=== PATIENT | male | born 1970 | race Caucasian/White ===

== ENCOUNTER → 2023-11-16 11:25 | Outpatient (CLI) | payer OTHER, MEDICAID, SELFPAY ==
--- NOTE | 2023-11-16 11:27 | DI.RAD.S_ITS ---
PROCEDURE: XR HIP W PEL IF DONE RT 2V INDICATIONS: Right hip pain TECHNIQUE: 2 views of the hip were acquired. COMPARISON: None. FINDINGS: Bones: No fractures or dislocations. No suspicious bony lesions. The visualized pelvic ring appears intact. Moderate bilateral hip joint degeneration. Soft tissues: No suspicious soft tissue calcifications or masses. IMPRESSION: No acute bony abnormality. Moderate bilateral hip joint degeneration. If symptoms persist with conservative management, consider cross-sectional imaging such as CT or MRI. Approved by: Iesha Herron M.D. on 11/17/2023 at 0:17
== END ==
PROVIDERS: Referring Provider Nurse Practitioner Family; Visit Provider Nurse Practitioner Family
DX: M25.551 Pain in right hip (principal); M16.0 Bilateral primary osteoarthritis of hip
CPT/HCPCS: 73502

== ENCOUNTER → 2024-01-06 06:13 | Outpatient (CLI) | payer OTHER, MEDICAID, SELFPAY ==
[2024-01-06 07:56] LABS: Add Manual Diff / Slide Review NO; Basophils Absolute Auto 0 /uL (0-100); Basophils Percent Auto 0.9 % (0-2); Eosinophils Absolute Auto 200 /uL (0-450); Eosinophils Percent Auto 5.3 % (2-4); Hematocrit 43.4 % (41-53); Hemoglobin 15.1 g/dL (13.5-17.5); Lymphocytes Absolute Auto 1900 /uL (1100-4500); Mean Corpuscular HGB Conc 34.8 % (30-36); Mean Corpuscular Hemoglobin 31.2 PG (26-34); Mean Corpuscular Volume 89.8 fL (80-100); Monocytes Absolute Auto 400 /uL (0-900); Monocytes Percent Auto 8.2 % (3-14); Neutrophils Absolute Auto 1900 /uL (1500-7000); Neutrophils Percent Auto 42.6 % (50-75); Platelet Count 235 X10^3/uL (150-400); Red Blood Cell Count 4.83 X10^6/uL (4.5-5.9); Red Cell Distribution Width 12.4 % (11.6-14.8); White Blood Cell Count 4.5 X10^3/uL (4.5-11.0)
[2024-01-06 08:16] LABS: Alanine Aminotransferase 22 IU/L (<50); Albumin 4.8 g/dL (3.5-5.0); Alkaline Phosphatase 49 U/L (38-126); Aspartate Aminotransferase 27 IU/L (17-59); BUN Creatinine Ratio 17.6 (6-22); Bilirubin Total 1.1 mg/dL (0.2-1.3); Blood Urea Nitrogen 16 mg/dL (9-20); Calcium 9.7 mg/dL (8.4-10.2); Carbon Dioxide 30 mmol/L (22-32); Chloride 106 mmol/L (98-107); Cholesterol 200 mg/dL (140-199); Estimated Glomerular Filt Rate > 60 mL/min (>60); Globulin 2.4 g/dL (1.7-4.1); Glucose 97 mg/dL (70-100); HDL Cholesterol 79 mg/dL (40-60); HEMOLYSIS < 15 (0-50); LDL Cholesterol Calculated 104 mg/dL (<100); Potassium 4.9 mmol/L (3.4-5.1); Sodium 141 mmol/L (137-145); Total Protein 7.2 g/dL (6.3-8.2); Triglycerides 84 mg/dL (35-150)
[2024-01-06 10:43] LABS: HIV 1 & 2 Ab/Ag 4th Gen Combo NEGATIVE (NEGATIVE); Hep C Virus Ab w/Reflex Quant NEGATIVE s/c (NEGATIVE)
== END ==
LOC: LAB 06:14
PROVIDERS: PCP Family Medicine; Referring Provider Family Medicine; Visit Provider Family Medicine
DX: Z13.220 Encounter for screening for lipoid disorders (principal); Z11.59 Encounter for screening for other viral diseases; Z11.4 Encounter for screening for human immunodeficiency virus [HIV]; E87.8 Other disorders of electrolyte and fluid balance, not elsewhere classified; I48.91 Unspecified atrial fibrillation; D64.9 Anemia, unspecified; E78.5 Hyperlipidemia, unspecified; Z79.01 Long term (current) use of anticoagulants
CPT/HCPCS: 36415; 80053; 80061; 85025; 86803; 87389

== ENCOUNTER → 2024-01-21 11:48 | Outpatient (CLI) | payer OTHER, MEDICAID, SELFPAY ==
--- NOTE | 2024-01-21 11:49 | DI.MRI.S_ITS ---
PROCEDURE: MR HIP RT WO CON INDICATIONS: Pain in right hip TECHNIQUE: Noncontrast coronal T1 spin echo and STIR through the bony pelvis. Coronal and axial T2 fast spin echo with fat saturation, sagittal T1 spin echo, and oblique axial T2 fast spin echo with fat saturation through the hip. COMPARISON: [facility], CR, XR HIP W PEL IF DONE RT 2V, 11/16/2023, 11:27. FINDINGS: Image quality: Excellent. Bones and joints: Asymmetric moderate right hip joint osteoarthritic changes are seen with near complete loss of joint space, extensive subchondral sclerosis and subcortical edema. Marginal osteophyte formation is also noted. No acute fracture or dislocation. No definite avascular necrosis of femoral head. No suspicious bony lesions. The visualized lower lumbar spine is normally aligned. Tendons and ligaments: Distal right gluteus medius and minimus tendinosis is seen. Tendinosis also noted involving right hamstring tendon origins at ischial tuberosity. The nearby proximal iliotibial band also appears intact. The iliopsoas tendon appears intact, without adjacent bursal fluid collections or evidence for impingement syndrome. Labrum and cartilage: Global signal abnormality throughout right hip labrum is seen suggestive of extensive right hip labral tear. Diffuse loss of articulating cartilage over right femoral head is also noted. Soft tissues: Visualized muscles demonstrate normal bulk and internal signal. Quadratus femoris muscle demonstrates no internal edema to suggest ischiofemoral impingement. The proximal sciatic neurovascular bundle appears normal adjacent to the hamstring tendons. No free pelvic fluid. Bladder wall thickness is normal. Genitourinary structures and bowel loops appear normal where visualized. IMPRESSION: 1. Asymmetric moderate right hip joint osteoarthritis. No acute pelvic or hip fracture. No definite evidence of avascular necrosis. 2. Distal right gluteus medius and minimus tendinosis. Tendinosis involving right hamstring tendon origins. 3. Suggestion of extensive right hip labral tear with global signal abnormality throughout superior right hip labrum. Dictated by: Barry Resendez M.D. on 01/21/2024 at 15:32 Approved by: Barry Resendez M.D. on 01/21/2024 at 15:35
== END ==
PROVIDERS: PCP Family Medicine; Referring Provider Orthopaedic Surgery; Visit Provider Orthopaedic Surgery
DX: M25.551 Pain in right hip (principal); M16.11 Unilateral primary osteoarthritis, right hip
CPT/HCPCS: 73721

== ENCOUNTER → 2024-01-27 14:21 | Outpatient (CLI) | payer OTHER, MEDICAID, SELFPAY ==
[2024-01-27 16:57] LABS: Add Manual Diff / Slide Review NO; Basophils Absolute Auto 0 /uL (0-100); Basophils Percent Auto 0.9 % (0-2); Eosinophils Absolute Auto 200 /uL (0-450); Eosinophils Percent Auto 3.6 % (2-4); Hematocrit 41.6 % (41-53); Hemoglobin 14.4 g/dL (13.5-17.5); Lymphocytes Absolute Auto 2000 /uL (1100-4500); Lymphocytes Percent Auto 39.3 % (25-40); Mean Corpuscular HGB Conc 34.6 % (30-36); Mean Corpuscular Hemoglobin 31.6 PG (26-34); Mean Corpuscular Volume 91.2 fL (80-100); Monocytes Absolute Auto 300 /uL (0-900); Monocytes Percent Auto 5.9 % (3-14); Neutrophils Absolute Auto 2600 /uL (1500-7000); Neutrophils Percent Auto 50.3 % (50-75); Platelet Count 223 X10^3/uL (150-400); Red Blood Cell Count 4.57 X10^6/uL (4.5-5.9); Red Cell Distribution Width 12.7 % (11.6-14.8); White Blood Cell Count 5.1 X10^3/uL (4.5-11.0)
[2024-01-27 17:18] LABS: INR 1.3 (0.9-1.3); Prothrombin Time 14.7 SECONDS (9.4-12.5)
[2024-01-27 17:27] LABS: BUN Creatinine Ratio 18.7 (6-22); Blood Urea Nitrogen 17 mg/dL (9-20); Calcium 9.2 mg/dL (8.4-10.2); Carbon Dioxide 26 mmol/L (22-32); Chloride 106 mmol/L (98-107); Estimated Glomerular Filt Rate > 60 mL/min (>60); Glucose 95 mg/dL (70-100); HEMOLYSIS < 15 (0-50); Potassium 4.1 mmol/L (3.4-5.1); Sodium 137 mmol/L (137-145)
== END ==
PROVIDERS: PCP Family Medicine; Referring Provider Orthopaedic Surgery; Visit Provider Orthopaedic Surgery
DX: Z01.818 Encounter for other preprocedural examination (principal); Z51.81 Encounter for therapeutic drug level monitoring
CPT/HCPCS: 80048; 85025; 85610; 93005

== ENCOUNTER 2024-03-09 06:08 | Day surgery (SDC) | payer OTHER, MEDICAID, SELFPAY ==
[2024-03-01 13:52] VITALS: BMI 25.5
[2024-03-09] VITALS (10 sets, daily range): BP systolic 90–131; BP diastolic 52–88; PULSE 59–104; RESP 12–21; TEMP 36.1–36.6; O2SAT 94–99; BMI 25.2
--- NOTE | 2024-03-09 | DI.RAD.S_ITS ---
PROCEDURE: XR HIP W PEL IF DONE RT 4V INDICATIONS: INTRA OP RIGHT HIP TECHNIQUE: 2 view(s) of the hip [facility]. [facility], 10:41. [facility], [facility], XR HIP W PEL IF DONE RT 2V, 11/16/2023, 11:27. FINDINGS: Intraoperative images demonstrate right hip arthroplasty. Hardware is intact with good anatomic alignment. IMPRESSION: Intraoperative right hip arthroplasty. Dictated by: April Montenegro M.D. on 03/09/2024 at 16:00 Approved by: April Montenegro M.D. on 03/09/2024 at 16:00
--- NOTE | 2024-03-09 06:00 | DI.RAD.S_ITS ---
PROCEDURE: XR HIP W PEL IF DONE RT 2V INDICATIONS: anterior total right hip TECHNIQUE: 2 view(s) of the hip acquired. COMPARISON: [facility], [facility], XR HIP W PEL IF DONE RT 2V, 11/16/2023, 11:27. FINDINGS: Bones: Patient is status post right hip arthroplasty, with hardware components in expected positions. The hip joint appears congruent. The visualized bony structures appear intact. Soft tissues: Overlying postoperative changes are noted. No suspicious soft tissue densities. IMPRESSION: Expected post-operative appearance of a hip arthroplasty. Dictated by: Sunita Rios MD, PhD on 03/09/2024 at 10:58 Approved by: Sunita Rios MD, PhD on 03/09/2024 at 10:59
[2024-03-09] MEDS: LACTATED RINGERS 1,000 ML 42 ML IV (06:40)
[2024-03-09] MEDS: VANCOMYCIN 1,000 MG/200 ML PIGGYBACK 200 MG IV (06:48)
[2024-03-09] MEDS: CELECOXIB 200 MG CAPSULE PO (06:49)
[2024-03-09] MEDS: ACETAMINOPHEN 325 MG TABLET 975 MG PO (06:49)
--- NOTE | 2024-03-09 07:42 | PM.PREOP ---
Pre-operative Note Interval Note History & Physical reviewed/Exam performed by Physician: Yes Changes to H&P: No
[2024-03-09] MEDS: TRANEXAMIC ACID 1,000 MG VIAL 1000 MG INJ (08:00)
[2024-03-09] MEDS: CEFAZOLIN 2 GM/100 ML PREMIX 100 ML IV (08:02)
[2024-03-09] MEDS: ACETAMINOPHEN IV 1,000 MG/100 ML VIAL 400 MG IV (08:15)
--- NOTE | 2024-03-09 08:25 | SUR.OPER ---
Patient supine on padded Tuthill table, one arm on padded arm board at <90, other arm padded and secured with tape across patient's chest, both legs secured in padded traction boots and positioned per surgeon, padded post at patient's groin, pressure points checked and padded.
[2024-03-09] MEDS: BUPIVACAINE 0.25% (PF) 60 ML, EPINEPHrine 0.3 MG INJ (08:31)
[2024-03-09] MEDS: BUPIVACAINE LIPOSOME 266 MG/20 ML VIAL INJ (08:32)
--- NOTE | 2024-03-09 10:43 | P.OP_ITS ---
Operative Date/Time/Diagnoses Date of procedure: 03/09/24 Time of procedure: 08:00 Pre-op diagnosis: right hip AVN Post-op diagnosis: same Procedure & Clinicians Procedure: right total hip anterior approach Same procedure as scheduled: Yes Indications: The patient has had progressively worsening right hip pain with radiographic changes consistent with arthritis. Non-operative management has failed and the patient has requested total hip replacement. The risks, benefits and alternatives to surgery were discussed with the patient prior to proceeding. Risks discussed included, but were not limited to, failure to relieve pain, leg length discrepancy, dislocation, stiffness, infection, nerve damage, deep venous thrombosis, pulmonary embolism, stroke, coma, heart attack, permanent paralysis and , as well as the potential need for eventual revision of the prosthetic. Surgeon: Marie Siegel [employer] Technician: Jorge Alberto Yoo Anesthesia Type: General and Spinal Operative Notes Findings: Good quality bone, ATN right femoral head, adequate stability Closure Type: primary Specimen(s): none sent Prosthetic devices, grafts, tissues, transplants, or devices: [employer] R3 56 cup, neutral poly liner, one 6.5 mm screw, size 3 standard polar stem, 36 by +0 Oxinium Estimated Blood Loss (mL): 250 Blood products transfused: none Procedure in detail: The patient was brought to the operating room. Patient was carefully positioned in the supine position. Time-out was performed and antibiotics were given. Anesthesia was induced. He was positioned in the on the table in order to allow hyperextension of the hip. The right lower extremity was prepped and draped in a standard sterile fashion. An anterior right hip incision was made 1 fingerbreadth lateral to the anterior superior iliac spine and extended distally towards the greater trochanter. Dissection was carried out through skin and subcutaneous tissues. Superficial hemostasis was achieved. The fascia over the tensor fascia bety was defined and incised with a knife. Two Allis clamps were used to grasp the fascia. Tensor fascia bety was retracted laterally. A gelpi retractor was placed. Dissection was carried out down along the neck. The circumflex vessels were carefully identified and cauterized with the Aqua Mantis. A PA was used during the procedure and was essential for intraoperative retraction and safe implantation of the components. There was good visualization of the femoral neck. A Cobra was placed superior to the neck and the gluteus fibers were carefully stripped from that superior aspect of the capsule. A 2nd retractor was placed along the inferior aspect of the neck. The rectus insertion along the capsule was partially released. A 3rd retractor that was then gently placed over the rim of the acetabulum under the rectus. Capsule was carefully incised and released from the intertrochanteric line circumferentially superior to the mid sagittal line and inferiorly to the mid sagittal line until the lesser trochanter was palpable. A tag stitch was placed both in the superior and inferior limb of the capsular insertion. Along the acetabulum capsule was also released up to the mid sagittal 12:00 position. A portion of the labrum was resected. A saw was used to perform an osteotomy at the level of the intertrochanteric line and the junction of the superior femoral neck leaving approximately 1 finger breath of residual inferior neck above the lesser trochanter. A 2nd cut was made along the femoral neck at the base of the head and a napkin ring of neck was removed. Corkscrew was placed in the femoral head and the head was removed without difficulty. Retractors were then repositioned around the acetabulum. Residual labrum was resected and additional osteophytes were removed. A reamer that was 4 mm below the templated size was placed by hand in the acetabulum and it was reamed to centralize the acetabulum. It was then reamed up to 2 under the templated size and fluoroscopy was brought in to confirm the position of the reaming and depth of reaming. I reamed 1 under the anticipated size and touched the rim with line to line reaming. A trial cup was placed and noted that it was appropriately sized and fluoroscopy confirmed position and depth. The component was open and inserted without difficulty fluoroscopic imaging was used to confirm that the cup had been adequately seated and was well positioned. It was further stabilized with a single screw. Neutral poly liner was placed. The cup was tested and noted to be stable. Attention was then directed to the femur. The femur was gently hyperextended additional capsular release was performed as needed in order to allow adequate visualization of the proximal femur with elevation of the femur. Patient was placed in a hyperextended slightly adducted position with maximum external rotation. Box osteotome was used to check for any residual neck as well as sclerotic bone along the trochanter. [place] Spur pepper was placed in the femur. Additional broaching was performed. Canal finder was used to determine the alignment of the canal and position. Size 1 broach was placed. The canal was then appropriately broached up to the templated size as long as there was adequate stability of the broach and serial advancement of the broach without excessive impingement. Specific attention was directed at avoiding varus attempting to direct the distal aspect of the broach more anteriorly and avoiding excessive anteversion. Trial reduction showed acceptable range of motion, good stability, no posterior impingement, jainism of leg length and appropriate lateral shuck. I also hyperflexed the hip and checked that there was no impingement anteriorly and there was good stability with flexion, adduction and internal rotation. Marcaine and Exparel were injected.. The stem was placed without difficulty. Repeat trial reduction and x-ray showed acceptable overall position, length, and no evidence of the femoral fracture. Final head was placed. Wound was meticulously irrigated with normal saline. The hip was reduced and additional Exparel and Marcaine were injected. The capsule was closed with interrupted nonabsorbable sutures. The fascia of the tensor was closed with interrupted and running Vicryl. No drain was placed. Any tensor fascia bety muscle that appeared to be contused or injured which was a minimal amount was carefully resected. Capsule around the tensor was injected with Exparel and Marcaine. The skin was closed with barbed stitches for the subcutaneous tissue and skin. We also used surgical glue. The wound was dressed sterilely. Brief Betadine soak was also used and was meticulously irrigated with normal saline. Patient was transferred to recovery room in satisfactory condition. Complications: none Post-operative Condition: stable Disposition: observation Plan for aftercare: The patient will be maintained on a standard total hip replacement protocol with weight bearing as tolerated and anterior hip precautions. The patient will receive Xarelto and sequential compression devices for DVT prophylaxis. The patient will be discharged home when safe for the home environment.
[2024-03-09] MEDS: OXYCODONE IR 5 MG TABLET PO ×2 (10:52→11:16)
--- NOTE | 2024-03-09 12:30 | PC.NURSE ---
Pt to room 203 via bed from PACU at 1125. Pt is awake, alert, and oriented. Denies pain, nausea, or shortness of breath. Spouse Lori is at the bedside. IV infusing as ordered. SCD's on and running. Bed alarm on for safety. Pt oriented to room, call light, bed controls, and tv controls. Requested Pt to not get out of bed without assistance. Pt agrees to call for all needs.
--- NOTE | 2024-03-09 14:35 | PT.IIE ---
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) Surgery Performed Operation Date: 03/09/24 07:45 Actual Procedures p Total Hip Arthroplasty/Anterior Approach(Right) - Marie Siegel MD Surgical History (Last Updated 11/25/23 @ 17:47 by Olga Izquierdo) Anesthesia History of cardiac radiofrequency ablation (~2021) History of hand surgery History of hernia repair Medical History (Last Updated 03/01/24 @ 14:07 by Kelley Valle RN) History of cardioversion Physical Therapy Inpatient Evaluation/Re-Eval M1 PT/OT-IP Prior Functional Status Start: 03/09/24 16:25 Freq: NEEDED Status: Active Protocol: Document 03/09/24 14:35 AB (Rec: 03/09/24 16:39 AB [id number]) Medical Review Prior Functional Status Medical History Reviewed Yes Communication able to make needs known Mobility and Gait pt stated that he was independent with all mobilities and ambulation without AD Social History Household Members spouse,children Living Arrangements House Number of Floors (Floors) Two Floors Number of Stairs To Enter/Railing? 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 PT-IP Current Condition Start: 03/09/24 16:25 Freq: NEEDED Status: Active Protocol: Document 03/09/24 14:35 AB (Rec: 03/09/24 16:39 AB [id number]) Physical Therapy Current Condition Current Condition Evaluation Date 03/09/24 Treatment Diagnosis s/p R BINU anterior; difficulty in walking Onset Date 03/09/24 M3 PT-IP Subjective Start: 03/09/24 16:25 Freq: NEEDED Status: Active Protocol: Document 03/09/24 14:35 AB (Rec: 03/09/24 16:39 AB [id number]) Subjective Physical Therapy Visit Type Type Initial Evaluation Visit Start Time 14:35 Visit Stop Time 15:50 Number of PHARMACY TECHNICIAN PER DIEM Visits 0 Physical Therapy Visit Comments Patient Comments agreeable to do PT Therapy Pain Assessment Pain Present Pain Present Denied Pain M4 PT-IP Mobility and Gait Start: 03/09/24 16:25 Freq: NEEDED Status: Active Protocol: Document 03/09/24 14:35 AB (Rec: 03/09/24 16:39 AB [id number]) PT-Bed Mobility Assessment Supine to Sit Supine to Sit Standby Assistance Sit to Supine Sit to Supine Standby Assistance PT-Transfer Assessment Sit to and From Stand Sit to and from Stand Contact Guard Assistance,1 Person Assistance,Use of Upper Extremities Equipment Transfer Assistive Device Gait Belt,Front Wheeled Walker Orthotic/Prosthetic Devices or Brace: No Transfers Transfer Destination Bed,Chair Transfer Technique Stand Step Pivot Transfer Ability Level of Assist Contact Guard Assistance,1 Person Assistance,Use of Upper Extremities Comments Mobility Comments pt supine in bed. spouse in room. obtained PLOF and home set up from pt and spouse. post-op folder provided and reviewed contents. educated pt regarding R hip anterior precautions. pt was able to recall after education. BP in supine: 134/68 pt completed supine to sit SBA . able to sit on EOB SBA. c/o feeling oozy. BP checked: 113/74. pt sat for a few minutes. BP checked: 121/74. completed sit to stand CGA to min A. pt ambulated in room ~ 20 ft using FWW CGA and sat on the chair. BP checked: 124/ 71. caregiver training conducted. educated spouse on how to use safety belt and how to assist pt. spouse was able to put safety belt on. assisted pt with sit to stand and ambulated pt using FWW towards platform step. pt completed up/down step CGA to min A with PT initially assisting pt. pt repeated and with spouse assisting and cueing pt. pt ambulated in the hallway ~ 40 ft and went back to the room using fWW CGA. pt sat back on the chair. educated pt on how to do bed mobility. pt completed sit to stand from the chair and step transfer to bed with spouse assisting using FWW CGA. pt completed sit to supine SBA and cues. pt stated that he is tired and wants to stay in bed for now. left pt with OT. pt and spouse without further concerns. Gait Assessment Gait Gait Assistance Required: Contact Guard Assist Distance (Feet) 40 Able to Maintain Weight Bearing Status Yes During Gait Assistive Devices Assistive Device Gait Belt,Front Wheeled Walker Orthotic/Prosthetic Devices or Brace: No Factors Limiting Gait Function Factors Limiting Gait Function Decreased Activity Tolerance, Decreased Strength,Limited Range of Motion,Pain,Poor Balance,Poor Safety Awareness Stair Climbing Assessment Evaluation Level of Assist On Stairs Contact Guard Assistance, Minimal Assistance Devices Stair Climbing Assistive Devices Front Wheel Walker Technique/Endurance Stair Climbing Direction Ascend and Descend Stair Climbing Technique Step to Step Number of Steps Climbed 1 Query Text: Stair Climbing Set # Repetitions (reps) 2 PT-Balance Assessment Sitting Balance and Reactions Static Sitting Balance Ability Normal Dynamic Sitting Balance Ability Good Standing Balance and Reactions Static Standing Balance Ability Good Dynamic Standing Balance Ability Fair Device Used FWW M5 PT-IP Objective Assessments Start: 03/09/24 16:25 Freq: NEEDED Status: Active Protocol: Document 03/09/24 14:35 AB (Rec: 03/09/24 16:39 AB [id number]) Orientation Orientation/Cognition Level of Alertness Alert Orientation Name,Situation Language Function Ability No Deficits Noted Safety Awareness Decreased Safety Awareness Memory Description No Deficits Noted Gross Range of Motion Lower Extremity ROM Assessment Within Functional Limits Strength Lower Extremity Strength Assessment Right Impaired Hip 3+/5 Knee 4-/5 Muscle Tone Muscle Tone WNL Yes M6 PT-IP Treatment Start: 03/09/24 16:25 Freq: NEEDED Status: Active Protocol: Document 03/09/24 14:35 AB (Rec: 03/09/24 16:39 AB [id number]) Physical Therapy Treatment Exercises Exercises Heel Slides Education Education Provided Precautions,Weight Bearing Status,Post-Op Packet,Safety M7 PT-IP Assessment and Plan Start: 03/09/24 16:25 Freq: NEEDED Status: Active Protocol: Document 03/09/24 14:35 AB (Rec: 03/09/24 16:39 AB [id number]) PT Summary Assessment and Plan Potential Rehabilitation Potential Fair Status of Condition at Evaluation Stable Summary Impairments Pain,ROM,Strength,Balance, Coordination,Sensation,Tone, Cognition,Bed Mobility, Transfers,Gait,Activity Tolerance Assessment Summary pt is a 53 y/o M s/p R BINU anterior approach POD 0. pt has R hip anterior precautions and is WBAT on RLE. pt requiring CGA with mobility using FWW and plans to go home with spouse to assist him. caregiver training conducted and spouse was able to safely assist pt. pt may go home when medically stable. pt also stated that he has outpt PT set up. Goals Bed Mobility Goal Independent Transfer Goal Independent,Front Wheeled Walker Gait Goal Independent,Front Wheel Walker Gait Distance 200 Other Goals up/down 2 platform steps mod I Days to Meet Goals 5 Frequency of Treatment Frequency Of Treatment Twice a Day Treatment Plan Physical Therapy Treatment Plan Bed Mobility Training,Transfer Training,Gait Training, Therapeutic Exercise,Balance Retraining,Post Op Education, Discharge Planning,Hot or Cold Pack,Neuromuscular Re-ed, Coordination Retraining,Manual Therapy Precautions Anterior Hip Precautions No Hip Extension,No Hip External Rotation Weight Bearing Status Weight Bearing Status Weight Bear as Tolerated Allowed Weight Bearing Amount (enter % RLE WBAT or #) (%) Recommendations To Nursing Amount of Assist Needed 1 Person Assist Discharge Recommendations PT Discharge Recommendations Home with Assistance, Outpatient PT Transportation Needs at Discharge Private Vehicle
--- NOTE | 2024-03-09 16:10 | OT.IP.EVAL ---
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) Surgery Performed Operation Date: 03/09/24 07:45 Actual Procedures p Total Hip Arthroplasty/Anterior Approach(Right) - Marie Siegel MD Past Medical History (Last Updated 03/01/24 @ 14:07 by Kelley Valle RN) History of cardioversion Surgical History (Last Updated 11/25/23 @ 17:47 by Olga Izquierdo) Anesthesia History of cardiac radiofrequency ablation (~2021) History of hand surgery History of hernia repair Occupational Therapy Inpatient Evaluation/Re-Eval M2 OT-IP Current Condition Start: 03/09/24 16:09 Freq: Status: Active Protocol: Document 03/09/24 16:10 [facility] (Rec: 03/09/24 16:31 [facility] [id number]) Occupational Therapy Current Condition Current Condition Evaluation Date 03/09/24 Treatment Diagnosis S/P R BINU anterior approach Diagnosis Onset Date 03/09/24 Post Operative Precautions Anterior Hip Precautions No Hip Extension,No Hip External Rotation Weight Bearing Status Weight Bearing Status Weight Bear as Tolerated M3 OT- IP Subjective and Pain Start: 03/09/24 16:09 Freq: Status: Active Protocol: Document 03/09/24 16:10 [facility] (Rec: 03/09/24 16:31 [facility] [id number]) OT- Subjective Occupational Therapy Visit Type Type Initial Evaluation Visit Start Time 14:50 Visit Stop Time 16:00 Occupational Therapy Visit Comments Patient Comments Pt agreed to get up. Pt's in the room for caregiver training. Patient/Caregiver Goals To go home. OT Pain Assessment Pain When Pain Assessed During Mobility Pain Present Pain Present Pain Reported M4 OT- IP ADL's Start: 03/09/24 16:09 Freq: Status: Active Protocol: Document 03/09/24 16:10 [facility] (Rec: 03/09/24 16:31 [facility] [id number]) OT ADL-Dressing General Eval Upper Body Dressing Ability Independent Lower Body Dressing Ability Moderate Assistance,Maximum Assistance Areas Needing Assistance Socks,Shoes Comments OT Dressing Comments Pt able to radha/doff his brief and shorts. Pt needing assist for socks and able to show pt use of grain operator and sock aid. Pt's states to assist him at home. Pt educated not to cross his right LE for dressing needs. OT ADL-Toileting Comments OT Toileting Comments Pt able to practice and reach better while standing to wipe. Pt is considering getting a bidet. educated pt to be mindful of his right hip positioning during ADL needs. OT ADL-Bathing Comments OT Bathing Comments Suggested pt get a shower chair for home to use. Spoke on covering the dressing during showering needs. M5 OT- IP IADL's Start: 03/09/24 16:09 Freq: Status: Active Protocol: Document 03/09/24 16:10 [facility] (Rec: 03/09/24 16:31 [facility] [id number]) OT-Instrumental Activities of Daily Living Deficits IADL Deficits Identified Deficits Home Safety Awareness Awareness of Need for Assistance at Home Good Awareness Ability to Problem Solve Emergency Able to Problem Solve Situations Home Safety Comments Pt's to be home to assist pt for all needs. Meal Preparation Meal Preparation Caregiver Provides Assist Casino Duty Manager Casino Duty Manager Caregiver Provides Assist M6 OT- IP Functional Cognition Start: 03/09/24 16:09 Freq: Status: Active Protocol: Document 03/09/24 16:10 [facility] (Rec: 03/09/24 16:31 [facility] [id number]) Cognitive Factors Limiting Selfcare Function Cognitive Ability Level of Alertness Alert Patient Orientation Name,Age,Birthday,Month,Date, Year,Day of Week,Place, Situation Attention Span Ability Capable of Focused Attention, Capable of Sustained Attention Ability to Follow Commands Able to Follow One Step Commands Memory Description No Deficits Noted Safety Awareness No Deficits Noted Problem Solving Ability No deficits Noted Cognitive Comments Cognitive Assessment Comments Pt tired from surgery but able to recall and incorporate his anterior precautions after initial education. OT- Vision and Hearing OT- Hearing Assessment OT- Hearing Assessment WFL OT- Vision Assessment Visual Attentiveness WFL Occular Pursuits WFL M7 OT- IP Mobility and Balance Start: 03/09/24 16:09 Freq: Status: Active Protocol: Document 03/09/24 16:10 [facility] (Rec: 03/09/24 16:31 [facility] [id number]) OT- Bed Mobility Assessment Supine to Sit Supine to Sit Assist Standby Assistance Sit to Supine Sit to Supine Assist Standby Assistance Scooting Scooting to Edge of Bed Standby Assistance OT-Transfer Assessment Sit to and From Stand Sit to and from Stand Standby Assistance,Contact Guard Assistance Transfers Transfer Ability Standby Assistance,Contact Guard Assistance Technique Transfer Destination Bed,Chair Transfer Technique Stand Step Pivot Devices Transfer Assistive Devices Gait Belt,Front Wheeled Walker Comments Mobility Comments Pt moving well and able to follow all his hip precautions for mobility needs. Able to go over all mobility needs with bed mobility, transfers including car transfers, and ADL's. OT- Balance Assessment Sitting Balance and Reactions Static Sitting Balance Ability Normal Dynamic Sitting Balance Ability Normal Standing Balance and Reactions Static Standing Balance Ability Good Dynamic Standing Balance Ability Fair M8 OT- IP Objective Assessments Start: 03/09/24 16:09 Freq: Status: Active Protocol: Document 03/09/24 16:10 [facility] (Rec: 03/09/24 16:31 [facility] [id number]) OT Gross Range of Motion Upper Extremity Range of Motion Assessment Within Functional Limits OT Strength Upper Extremity Strength Assessment Within Functional Limits M9 OT- IP Assessment and Plan Start: 03/09/24 16:09 Freq: Status: Active Protocol: Document 03/09/24 16:10 [facility] (Rec: 03/09/24 16:31 [facility] [id number]) OT Summary Assessment and Plan Potential Rehabilitation Potential Excellent Analytic Complexity at Evaluation Low Summary OT Impairments Pain,Strength,Balance, Functional Mobility,Dressing, Toileting,Bathing,Toilet Transfers,Shower Transfers Progress Towards Goals Progressing Toward Goals Assessment Summary Pt low complexity and doing well. Pt's has been trained for caregiver training for belt management, ADL, and mobility needs. Pt looking to go home today. Pt would benefit from a shower chair. Pt to go home with assist and have outpt PT. Goals Grooming Goal Independent Dressing Goal Independent Toileting Goal Independent Bathing Goal Standby Assistance Toilet Transfer Goal Independent,Standby Assistance Shower Transfer Goal Independent Days to Meet Goals 2 Frequency of Treatment Frequency Of Treatment Once a Day Treatment Plan OT Treatment Plan ADL Training,Functional Mobility,Patient/Family Education,Discharge Planning Discharge Recommendations OT Discharge Recommendations Home with Assistance, Outpatient PT Home Equipment Needs shower chair Transportation Needs at Discharge Private Vehicle
--- NOTE | 2024-03-09 16:43 | PC.NURSE ---
Pt is dressed and ready for discharge home with Spouse. IV has been removed. PT and OT have seen Pt and cleared him for discharge. Went over d/c instructions with Pt and Spouse-discussed d/c meds, time of last dose, reviewed stroke education, s/s of infection, hip precautions, no driving while on narcotics, drink plenty of fluids to prevent constipation or dehydration and follow up appointment. Pt and Spouse denied further questions and Pt will be taken out via w/c by LAUNDRY ROUTEMAN to POV with Spouse and all belongings.
== END 2024-03-09 16:50 | disposition home or self-care (01) ==
LOC: OR 06:09 → AC 06:11
PROVIDERS: PCP Family Medicine; Referring Provider Orthopaedic Surgery; Visit Provider Orthopaedic Surgery
PROC: (CPT 27130; principal; 2024-03-09 07:45)
DX: M87.051 Idiopathic aseptic necrosis of right femur (principal); I48.91 Unspecified atrial fibrillation; M25.751 Osteophyte, right hip
CPT/HCPCS: 27130; 73502; 73503; 76000; 97161; 97165; 97530; 97535; C1776; C9290; J0136; J0171; J0690; J1170; J2704; J3010

== ENCOUNTER 2024-11-14 13:52 | Inpatient (IN) | payer OTHER, SELFPAY ==
[2024-03-09 11:35] VITALS: BMI 25.2
[2024-11-14] VITALS (86 sets, daily range): BP systolic 84–142; BP diastolic 50–86; PULSE 101–163; RESP 16–56; TEMP 36.7–37.3; O2SAT 90–100; BMI 25.2
--- NOTE | 2024-11-14 13:59 | DI.RAD.S_ITS ---
PROCEDURE: XR CHEST 1V INDICATIONS: chest pain TECHNIQUE: One view of the chest was acquired. COMPARISON: None. FINDINGS AND IMPRESSION: Left perihilar consolidation suspicious for pneumonia. No pleural effusions. Consider future imaging surveillance to assess for resolution. Mild cardiomegaly. Degenerative osseous changes. Dictated by: Cain Johnson M.D. on 11/14/2024 at 14:40 Approved by: Cain Jonhson M.D. on 11/14/2024 at 14:41
--- NOTE | 2024-11-14 14:04 | EKG_ITS ---
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
[2024-11-14] MEDS: ASPIRIN 81 MG CHEW TAB 324 MG PO (14:29)
[2024-11-14 14:33] LABS: INR 1.8 (0.9-1.3); Prothrombin Time 20.6 SECONDS (9.4-12.5)
--- NOTE | 2024-11-14 14:34 | EKG_ITS ---
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
[2024-11-14 14:35] LABS: Add Manual Diff / Slide Review NO; Basophils Absolute Auto 0 /uL (0-100); Basophils Percent Auto 0.3 % (0-2); Eosinophils Absolute Auto 0 /uL (0-450); Eosinophils Percent Auto 0.2 % (2-4); Hematocrit 45.2 % (41-53); Hemoglobin 15.9 g/dL (13.5-17.5); Lymphocytes Absolute Auto 400 /uL (1100-4500); Lymphocytes Percent Auto 3.4 % (25-40); Mean Corpuscular HGB Conc 35.1 % (30-36); Mean Corpuscular Hemoglobin 32.1 PG (26-34); Mean Corpuscular Volume 91.3 fL (80-100); Monocytes Absolute Auto 600 /uL (0-900); Monocytes Percent Auto 5.3 % (3-14); Neutrophils Absolute Auto 9900 /uL (1500-7000); Neutrophils Percent Auto 90.8 % (50-75); Platelet Count 201 X10^3/uL (150-400); Red Blood Cell Count 4.95 X10^6/uL (4.5-5.9); Red Cell Distribution Width 12.6 % (11.6-14.8); White Blood Cell Count 10.9 X10^3/uL (4.5-11.0)
[2024-11-14 14:36] LABS: PTT Partial Thromboplastin Tim 35 SECONDS (25.1-36.5)
[2024-11-14 14:37] LABS: Alanine Aminotransferase 30 IU/L (<50); Albumin 4.8 g/dL (3.5-5.0); Albumin Globulin Ratio 1.8 (1.0-2.8); Alkaline Phosphatase 61 U/L (38-126); Aspartate Aminotransferase 36 IU/L (17-59); Bilirubin Total 2.2 mg/dL (0.2-1.3); Blood Urea Nitrogen 15 mg/dL (9-20); Calcium 8.9 mg/dL (8.4-10.2); Carbon Dioxide 22 mmol/L (22-32); Chloride 103 mmol/L (98-107); Creatine Kinase 69 U/L (55-170); Estimated Glomerular Filt Rate > 60 mL/min (>60); Globulin 2.6 g/dL (1.7-4.1); Glucose 107 mg/dL (70-100); HEMOLYSIS 17 (0-50); Lipase 111 U/L (23-300); Magnesium 1.7 mg/dL (1.6-2.3); Sodium 137 mmol/L (137-145); Total Protein 7.4 g/dL (6.3-8.2)
[2024-11-14 14:49] LABS: NT-proBNP (BNP-Adult 18+) 455 pg/mL (<125); Troponin I < 0.012 ng/mL (0.01-0.034)
--- NOTE | 2024-11-14 16:23 | PC.NURSE ---
pt arrived with chest pain and left sided pleural pain, afiib , requesting pain meds. informed Dr. Gilmore multiple times. He is aware and will be in to see the paitent.
--- NOTE | 2024-11-14 16:40 | PC.NURSE ---
Patient is still requesting pain medications. MD has been verbally notified of this request and there is a note on the comment section of tracker.
--- NOTE | 2024-11-14 17:26 | ED_ITS ---
HPI - Chest Pain <Deshawn Gilmore MD - Last Filed: 11/14/24 18:23> General Chief Complaint: Chest Pain Stated Complaint: Chest Pain/AFIB/SOB Time Seen by Provider: 11/14/24 16:08 Source: patient and family Mode of arrival: Wheelchair Limitations: no limitations History of Present Illness HPI narrative: This is a 53-year-old male complaining of abdominal pain. Although he was triage as chest pain, when I personally interviewed the patient he indicated his pain with in his abdomen. With sudden onset this morning accompanied by vomiting. Patient describes it as severe. Not presently nauseated not having fevers. Has a history of atrial fibrillation, not on any rate control medications and taking Xarelto, last took that yesterday. Not having urinary symptoms no previous abdominal surgeries. 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) Anesthesia History of cardiac radiofrequency ablation (~2021) History of hernia repair History of hand surgery Family History (Updated 11/25/23 @ 18:05 by Olga Izquierdo) Father Liver failure Grandfather Hyperlipidemia Hypertension Grandmother Hyperlipidemia Hypertension Grandfather Hyperlipidemia Hypertension Grandmother Hyperlipidemia Hypertension Social History household members: spouse and children Smoking Status: Former smoker Smokeless tobacco user: snus (1 can q3 days) alcohol intake: current substance use type: does not use Smoking Status: Former smoker alcohol intake frequency: a few times a week Exam <Deshawn Gilmore MD - Last Filed: 11/14/24 18:23> Narrative Exam Narrative: Thin male writhing around appears to be in painful distress Initial Vital Signs Initial Vital Signs: Vital Signs Temperature 99.1 F 11/14/24 14:00 Pulse Rate 114 H 11/14/24 14:00 Respiratory Rate 16 11/14/24 14:00 Blood Pressure 98/59 L 11/14/24 14:00 Pulse Oximetry 96 11/14/24 14:00 Oxygen Delivery Method Room Air 11/14/24 14:00 Known to have atrial fibrillation with rapid ventricular response, was portable 1 hypotensive at triage. Neck Other: No jugular venous distention Resp Other: Lungs are clear, tachypneic Cardio Other: No bowel sounds, abdomen is diffusely tender and rigid Skin Other: Diaphoretic Neuro Other: Alert fully oriented without neurologic deficit <Sunny Arita DO - Last Filed: 11/14/24 22:45> Initial Vital Signs Initial Vital Signs: Vital Signs Temperature 99.1 F 11/14/24 14:00 Pulse Rate 114 H 11/14/24 14:00 Respiratory Rate 16 11/14/24 14:00 Blood Pressure 98/59 L 11/14/24 14:00 Pulse Oximetry 96 11/14/24 14:00 Oxygen Delivery Method Room Air 11/14/24 14:00 Course <Deshawn Gilmore MD - Last Filed: 11/14/24 18:23> Orders Ordered: ED Orders 11/14/24 13:59 XR chest 1V Stat EKG-12 Lead Stat 11/14/24 14:11 Complete Blood Count AUTO DIFF Stat Comprehensive Metabolic Panel Stat Lipase Stat Magnesium Stat NT-proBNP (BNP-Adult 18+) Stat PTT Partial Thromboplastin Singh Stat Prothrombin Time INR Stat Troponin & CK Cardiac Panel Stat 11/14/24 17:26 Trop I [Troponin I] Stat 11/14/24 17:34 EKG-12 Lead Stat 11/14/24 17:35 EKG-12 Lead Stat 11/14/24 17:42 CT abdomen pelvis w con Stat 11/14/24 18:01 Urine Microscopic Stat 11/14/24 19:00 Lactate (Lactic Acid) Stat 11/14/24 22:40 D Dimer Stat 11/14/24 22:41 VBG [Venous Blood Gas] STAT 11/14/24 22:44 Procalcitonin Stat Morphine Sulfate (Morphine 2 Mg/Ml Inj) 2 mg IV Q4HR PRN PRN Reason: Pain, Moderate (4-6) Discontinued Medications Aspirin (Aspirin 81 Mg Chew Tab) 324 mg PO NOW ONE Stop: 11/14/24 14:00 Last Admin: 11/14/24 14:29 Dose: 324 mg Documented By: BHUPENDRA Fentanyl (Fentanyl 100 Mcg/2 Ml Inj) 50 mcg IV NOW ONE Stop: 11/14/24 17:34 Last Admin: 11/14/24 17:36 Dose: 50 mcg Documented By: TC Fentanyl (Fentanyl 100 Mcg/2 Ml Inj) 50 mcg IV NOW ONE Stop: 11/14/24 17:45 Last Admin: 11/14/24 17:46 Dose: 50 mcg Documented By: TC Hydromorphone HCl (Hydromorphone 1 Mg Inj) 1 mg IV NOW ONE Stop: 11/14/24 19:27 Last Admin: 11/14/24 19:29 Dose: 1 mg Documented By: LS Hydromorphone HCl (Hydromorphone 1 Mg Inj) 1 mg IV NOW ONE Stop: 11/14/24 22:31 Last Admin: 11/14/24 22:35 Dose: 1 mg Documented By: ANA Sodium Chloride (Normal Saline 0.9%) 1,000 mls @ 1,000 mls/hr IV BOLUS ONE Stop: 11/14/24 19:43 Last Infusion: 11/14/24 19:56 Dose: Infused Documented By: Admin: 11/14/24 18:51 Dose: 1,000 mls/hr Documented By: MARTHA Doxycycline Hyclate 100 mg/ (Sodium Chloride) 100 mls @ 100 mls/hr IV NOW ONE Stop: 11/14/24 18:45 Last Infusion: 11/14/24 19:57 Dose: Infused Documented By: Admin: 11/14/24 19:00 Dose: 100 mls/hr Documented By: MARTHA Ceftriaxone Sodium 2,000 mg/ (Sodium Chloride) 100 mls @ 200 mls/hr IV NOW ONE Stop: 11/14/24 22:45 Morphine Sulfate (Morphine 4 Mg/Ml Inj) 4 mg IV NOW ONE Stop: 11/14/24 18:40 Last Admin: 11/14/24 18:47 Dose: 4 mg Documented By: TC Ondansetron HCl (Ondansetron 4 Mg/2 Ml Inj) 4 mg IV NOW ONE Stop: 11/14/24 18:40 Last Admin: 11/14/24 18:47 Dose: 4 mg Documented By: TC Reevaluation(s) Reevaluation #1: Case signed out to Dr. Balyut at 18:15 Vital Signs Vital signs: Vital Signs - 8 hr 11/14/24 14:50 11/14/24 14:50 11/14/24 14:55 Pulse Rate 108 H Respiratory Rate Blood Pressure 125/70 124/64 Pulse Oximetry Oxygen Delivery Method Oxygen Flow Rate 11/14/24 14:55 11/14/24 15:00 11/14/24 15:00 Pulse Rate 106 H 111 H Respiratory Rate 24 20 Blood Pressure 142/61 H Pulse Oximetry 97 Oxygen Delivery Method Room Air Room Air Oxygen Flow Rate 11/14/24 15:05 11/14/24 15:05 11/14/24 15:10 Pulse Rate 108 H Respiratory Rate Blood Pressure 130/64 123/61 Pulse Oximetry Oxygen Delivery Method Oxygen Flow Rate 11/14/24 15:10 11/14/24 15:15 11/14/24 15:15 Pulse Rate 117 H 107 H Respiratory Rate 24 Blood Pressure 121/65 Pulse Oximetry 97 96 Oxygen Delivery Method Oxygen Flow Rate 11/14/24 15:20 11/14/24 15:20 11/14/24 15:25 Pulse Rate 113 H Respiratory Rate 26 H Blood Pressure 105/64 114/67 Pulse Oximetry 96 Oxygen Delivery Method Room Air Oxygen Flow Rate 11/14/24 15:25 11/14/24 15:30 11/14/24 15:30 Pulse Rate 113 H 118 H Respiratory Rate Blood Pressure 131/68 Pulse Oximetry 96 96 Oxygen Delivery Method Oxygen Flow Rate 11/14/24 15:35 11/14/24 15:35 11/14/24 15:40 Pulse Rate 121 H Respiratory Rate 29 H Blood Pressure 120/61 113/73 Pulse Oximetry 96 Oxygen Delivery Method Room Air Room Air Oxygen Flow Rate 11/14/24 15:40 11/14/24 15:45 11/14/24 15:45 Pulse Rate 135 H 128 H Respiratory Rate 37 H 35 H Blood Pressure 123/80 Pulse Oximetry 96 95 Oxygen Delivery Method Room Air Oxygen Flow Rate 11/14/24 15:50 11/14/24 15:50 11/14/24 15:55 Pulse Rate 126 H Respiratory Rate 37 H Blood Pressure 120/67 130/70 Pulse Oximetry 96 Oxygen Delivery Method Oxygen Flow Rate 11/14/24 15:55 11/14/24 16:00 11/14/24 16:00 Pulse Rate 125 H 131 H Respiratory Rate 41 H 42 H Blood Pressure 132/61 Pulse Oximetry 95 95 Oxygen Delivery Method Oxygen Flow Rate 11/14/24 16:05 11/14/24 16:05 11/14/24 16:10 Pulse Rate 124 H 127 H Respiratory Rate 38 H 40 H Blood Pressure 128/66 Pulse Oximetry 96 96 Oxygen Delivery Method Oxygen Flow Rate 11/14/24 16:10 11/14/24 16:15 11/14/24 16:15 Pulse Rate 131 H Respiratory Rate 45 H Blood Pressure 129/72 121/80 Pulse Oximetry 96 Oxygen Delivery Method Oxygen Flow Rate 11/14/24 16:20 11/14/24 16:20 11/14/24 16:24 Pulse Rate 135 H 134 H Respiratory Rate 51 H 38 H Blood Pressure 129/67 Pulse Oximetry 96 96 Oxygen Delivery Method Oxygen Flow Rate 11/14/24 16:25 11/14/24 16:25 11/14/24 16:30 Pulse Rate 119 H Respiratory Rate 37 H Blood Pressure 124/63 114/59 L Pulse Oximetry 96 Oxygen Delivery Method Room Air Oxygen Flow Rate 11/14/24 16:30 11/14/24 16:36 11/14/24 16:36 Pulse Rate 119 H 147 H Respiratory Rate 36 H 48 H Blood Pressure 129/65 Pulse Oximetry 96 95 Oxygen Delivery Method Oxygen Flow Rate 11/14/24 16:40 11/14/24 16:40 11/14/24 16:45 Pulse Rate 122 H Respiratory Rate 42 H Blood Pressure 122/63 122/68 Pulse Oximetry 96 Oxygen Delivery Method Oxygen Flow Rate 11/14/24 16:45 11/14/24 16:50 11/14/24 16:50 Pulse Rate 118 H 122 H Respiratory Rate 38 H 40 H Blood Pressure 117/62 Pulse Oximetry 95 96 Oxygen Delivery Method Oxygen Flow Rate 11/14/24 16:55 11/14/24 16:55 11/14/24 17:00 Pulse Rate 131 H 148 H Respiratory Rate 55 H 50 H Blood Pressure 124/58 L Pulse Oximetry 96 Oxygen Delivery Method Oxygen Flow Rate 11/14/24 17:00 11/14/24 17:05 11/14/24 17:05 Pulse Rate 144 H Respiratory Rate 45 H Blood Pressure 103/59 L 108/69 Pulse Oximetry 96 Oxygen Delivery Method Oxygen Flow Rate 11/14/24 17:10 11/14/24 17:10 11/14/24 17:15 Pulse Rate 157 H Respiratory Rate 47 H Blood Pressure 115/64 109/52 L Pulse Oximetry 95 Oxygen Delivery Method Oxygen Flow Rate 11/14/24 17:15 11/14/24 17:21 11/14/24 17:21 Pulse Rate 135 H 163 H Respiratory Rate 39 H 49 H Blood Pressure 100/50 L Pulse Oximetry 95 96 Oxygen Delivery Method Oxygen Flow Rate 11/14/24 17:25 11/14/24 17:25 11/14/24 17:30 Pulse Rate 159 H 147 H Respiratory Rate 43 H 49 H Blood Pressure 96/63 Pulse Oximetry 95 96 Oxygen Delivery Method Oxygen Flow Rate 11/14/24 17:31 11/14/24 17:31 11/14/24 17:36 Pulse Rate 158 H 127 H Respiratory Rate 52 H 56 H Blood Pressure 130/79 Pulse Oximetry 96 97 Oxygen Delivery Method Oxygen Flow Rate 11/14/24 17:36 11/14/24 17:40 11/14/24 17:40 Pulse Rate 129 H Respiratory Rate 49 H Blood Pressure 127/86 122/86 Pulse Oximetry 96 Oxygen Delivery Method Oxygen Flow Rate 11/14/24 17:45 11/14/24 17:45 11/14/24 18:01 Pulse Rate 123 H 116 H Respiratory Rate 44 H 44 H Blood Pressure 130/72 Pulse Oximetry 96 95 Oxygen Delivery Method Oxygen Flow Rate 11/14/24 18:30 11/14/24 19:00 11/14/24 19:30 Pulse Rate 114 H 121 H 120 H Respiratory Rate 47 H 56 H 56 H Blood Pressure Pulse Oximetry 94 93 92 Oxygen Delivery Method Room Air Room Air Oxygen Flow Rate 11/14/24 20:00 11/14/24 20:11 11/14/24 20:11 Pulse Rate 120 H 123 H Respiratory Rate 41 H Blood Pressure 116/55 L Pulse Oximetry 91 91 Oxygen Delivery Method Nasal Cannula Nasal Cannula Oxygen Flow Rate 1 1 11/14/24 20:15 11/14/24 20:15 11/14/24 20:20 Pulse Rate 124 H 123 H Respiratory Rate 30 H Blood Pressure 101/58 L Pulse Oximetry 91 91 Oxygen Delivery Method Nasal Cannula Nasal Cannula Oxygen Flow Rate 1 1 11/14/24 20:20 11/14/24 20:25 11/14/24 20:25 Pulse Rate 120 H Respiratory Rate 27 H Blood Pressure 101/61 114/56 L Pulse Oximetry 92 Oxygen Delivery Method Nasal Cannula Oxygen Flow Rate 1 11/14/24 20:30 11/14/24 20:30 11/14/24 20:35 Pulse Rate 116 H 115 H Respiratory Rate 26 H 26 H Blood Pressure 105/61 Pulse Oximetry 91 92 Oxygen Delivery Method Nasal Cannula Nasal Cannula Oxygen Flow Rate 1 2 11/14/24 20:35 11/14/24 20:40 11/14/24 20:40 Pulse Rate 111 H Respiratory Rate 26 H Blood Pressure 95/68 108/68 Pulse Oximetry 92 Oxygen Delivery Method Nasal Cannula Oxygen Flow Rate 2 11/14/24 20:45 11/14/24 20:45 11/14/24 20:50 Pulse Rate 116 H 110 H Respiratory Rate 24 26 H Blood Pressure 98/53 L Pulse Oximetry 92 92 Oxygen Delivery Method Nasal Cannula Nasal Cannula Oxygen Flow Rate 2 2 11/14/24 20:50 11/14/24 20:55 11/14/24 20:55 Pulse Rate 106 H Respiratory Rate 24 Blood Pressure 101/55 L 105/57 L Pulse Oximetry 92 Oxygen Delivery Method Nasal Cannula Oxygen Flow Rate 2 11/14/24 21:00 11/14/24 21:00 11/14/24 21:05 Pulse Rate 111 H 111 H Respiratory Rate 42 H 40 H Blood Pressure 116/55 L Pulse Oximetry 92 92 Oxygen Delivery Method Nasal Cannula Nasal Cannula Oxygen Flow Rate 2 2 11/14/24 21:05 11/14/24 21:10 11/14/24 21:10 Pulse Rate 111 H Respiratory Rate 36 H Blood Pressure 107/51 L 95/58 L Pulse Oximetry 92 Oxygen Delivery Method Nasal Cannula Oxygen Flow Rate 2 11/14/24 21:15 11/14/24 21:15 11/14/24 21:20 Pulse Rate 109 H 113 H Respiratory Rate 36 H 42 H Blood Pressure 104/56 L Pulse Oximetry 91 92 Oxygen Delivery Method Nasal Cannula Nasal Cannula Oxygen Flow Rate 2 2 11/14/24 21:20 11/14/24 21:25 11/14/24 21:25 Pulse Rate 107 H Respiratory Rate 30 H Blood Pressure 107/59 L 104/59 L Pulse Oximetry 92 Oxygen Delivery Method Nasal Cannula Oxygen Flow Rate 2 11/14/24 21:30 11/14/24 21:30 11/14/24 21:35 Pulse Rate 114 H Respiratory Rate 32 H Blood Pressure 104/72 93/62 Pulse Oximetry 91 Oxygen Delivery Method Nasal Cannula Oxygen Flow Rate 2 11/14/24 21:35 11/14/24 21:40 11/14/24 21:40 Pulse Rate 111 H 106 H Respiratory Rate 34 H 34 H Blood Pressure 107/58 L Pulse Oximetry 90 L 92 Oxygen Delivery Method Nasal Cannula Nasal Cannula Oxygen Flow Rate 2 2 11/14/24 21:45 11/14/24 21:45 11/14/24 21:50 Pulse Rate 109 H Respiratory Rate 38 H Blood Pressure 94/58 L 103/58 L Pulse Oximetry 100 Oxygen Delivery Method Nasal Cannula Oxygen Flow Rate 2 11/14/24 21:50 11/14/24 21:55 11/14/24 21:55 Pulse Rate 103 H 104 H Respiratory Rate 36 H Blood Pressure 103/61 Pulse Oximetry 99 91 Oxygen Delivery Method Nasal Cannula Nasal Cannula Oxygen Flow Rate 2 2 11/14/24 22:00 11/14/24 22:00 11/14/24 22:05 Pulse Rate 116 H Respiratory Rate Blood Pressure 102/57 L 100/58 L Pulse Oximetry 91 Oxygen Delivery Method Nasal Cannula Oxygen Flow Rate 2 11/14/24 22:05 11/14/24 22:10 11/14/24 22:10 Pulse Rate 110 H 103 H Respiratory Rate Blood Pressure 101/55 L Pulse Oximetry 92 92 Oxygen Delivery Method Nasal Cannula Nasal Cannula Oxygen Flow Rate 2 2 11/14/24 22:15 11/14/24 22:15 11/14/24 22:20 Pulse Rate 112 H Respiratory Rate Blood Pressure 98/58 L 109/57 L Pulse Oximetry 90 L Oxygen Delivery Method Nasal Cannula Oxygen Flow Rate 2 11/14/24 22:20 11/14/24 22:25 11/14/24 22:25 Pulse Rate 104 H 110 H Respiratory Rate 28 H 24 Blood Pressure 115/58 L Pulse Oximetry 91 91 Oxygen Delivery Method Nasal Cannula Nasal Cannula Oxygen Flow Rate 2 2 11/14/24 22:30 11/14/24 22:30 11/14/24 22:30 Pulse Rate 101 H 101 H Respiratory Rate 32 H 38 H Blood Pressure 100/62 Pulse Oximetry 92 92 Oxygen Delivery Method Nasal Cannula Nasal Cannula Oxygen Flow Rate 2 2 11/14/24 22:36 11/14/24 22:36 Pulse Rate 113 H Respiratory Rate 36 H Blood Pressure 94/71 Pulse Oximetry 92 Oxygen Delivery Method Oximask Oxygen Flow Rate 4 <Sunny Julioshmuel, DO - Last Filed: 11/14/24 22:45> Orders Ordered: ED Orders 11/14/24 13:59 XR chest 1V Stat EKG-12 Lead Stat 11/14/24 14:11 Complete Blood Count AUTO DIFF Stat Comprehensive Metabolic Panel Stat Lipase Stat Magnesium Stat NT-proBNP (BNP-Adult 18+) Stat PTT Partial Thromboplastin Singh Stat Prothrombin Time INR Stat Troponin & CK Cardiac Panel Stat 11/14/24 17:26 Trop I [Troponin I] Stat 11/14/24 17:34 EKG-12 Lead Stat 11/14/24 17:35 EKG-12 Lead Stat 11/14/24 17:42 CT abdomen pelvis w con Stat 11/14/24 18:01 Urine Microscopic Stat 11/14/24 19:00 Lactate (Lactic Acid) Stat 11/14/24 22:40 D Dimer Stat 11/14/24 22:41 VBG [Venous Blood Gas] STAT 11/14/24 22:44 Procalcitonin Stat Morphine Sulfate (Morphine 2 Mg/Ml Inj) 2 mg IV Q4HR PRN PRN Reason: Pain, Moderate (4-6) Discontinued Medications Aspirin (Aspirin 81 Mg Chew Tab) 324 mg PO NOW ONE Stop: 11/14/24 14:00 Last Admin: 11/14/24 14:29 Dose: 324 mg Documented By: RLS Fentanyl (Fentanyl 100 Mcg/2 Ml Inj) 50 mcg IV NOW ONE Stop: 11/14/24 17:34 Last Admin: 11/14/24 17:36 Dose: 50 mcg Documented By: TC Fentanyl (Fentanyl 100 Mcg/2 Ml Inj) 50 mcg IV NOW ONE Stop: 11/14/24 17:45 Last Admin: 11/14/24 17:46 Dose: 50 mcg Documented By: TC Hydromorphone HCl (Hydromorphone 1 Mg Inj) 1 mg IV NOW ONE Stop: 11/14/24 19:27 Last Admin: 11/14/24 19:29 Dose: 1 mg Documented By: LS Hydromorphone HCl (Hydromorphone 1 Mg Inj) 1 mg IV NOW ONE Stop: 11/14/24 22:31 Last Admin: 11/14/24 22:35 Dose: 1 mg Documented By: LS Sodium Chloride (Normal Saline 0.9%) 1,000 mls @ 1,000 mls/hr IV BOLUS ONE Stop: 11/14/24 19:43 Last Infusion: 11/14/24 19:56 Dose: Infused Documented By: Admin: 11/14/24 18:51 Dose: 1,000 mls/hr Documented By: MARTHA Doxycycline Hyclate 100 mg/ (Sodium Chloride) 100 mls @ 100 mls/hr IV NOW ONE Stop: 11/14/24 18:45 Last Infusion: 11/14/24 19:57 Dose: Infused Documented By: Admin: 11/14/24 19:00 Dose: 100 mls/hr Documented By: MARTHA Ceftriaxone Sodium 2,000 mg/ (Sodium Chloride) 100 mls @ 200 mls/hr IV NOW ONE Stop: 11/14/24 22:45 Morphine Sulfate (Morphine 4 Mg/Ml Inj) 4 mg IV NOW ONE Stop: 11/14/24 18:40 Last Admin: 11/14/24 18:47 Dose: 4 mg Documented By: MARTHA Ondansetron HCl (Ondansetron 4 Mg/2 Ml Inj) 4 mg IV NOW ONE Stop: 11/14/24 18:40 Last Admin: 11/14/24 18:47 Dose: 4 mg Documented By: MARTHA Vital Signs Vital signs: Vital Signs - 8 hr 11/14/24 14:50 11/14/24 14:50 11/14/24 14:55 Pulse Rate 108 H Respiratory Rate Blood Pressure 125/70 124/64 Pulse Oximetry Oxygen Delivery Method Oxygen Flow Rate 11/14/24 14:55 11/14/24 15:00 11/14/24 15:00 Pulse Rate 106 H 111 H Respiratory Rate 24 20 Blood Pressure 142/61 H Pulse Oximetry 97 Oxygen Delivery Method Room Air Room Air Oxygen Flow Rate 11/14/24 15:05 11/14/24 15:05 11/14/24 15:10 Pulse Rate 108 H Respiratory Rate Blood Pressure 130/64 123/61 Pulse Oximetry Oxygen Delivery Method Oxygen Flow Rate 11/14/24 15:10 11/14/24 15:15 11/14/24 15:15 Pulse Rate 117 H 107 H Respiratory Rate 24 Blood Pressure 121/65 Pulse Oximetry 97 96 Oxygen Delivery Method Oxygen Flow Rate 11/14/24 15:20 11/14/24 15:20 11/14/24 15:25 Pulse Rate 113 H Respiratory Rate 26 H Blood Pressure 105/64 114/67 Pulse Oximetry 96 Oxygen Delivery Method Room Air Oxygen Flow Rate 11/14/24 15:25 11/14/24 15:30 11/14/24 15:30 Pulse Rate 113 H 118 H Respiratory Rate Blood Pressure 131/68 Pulse Oximetry 96 96 Oxygen Delivery Method Oxygen Flow Rate 11/14/24 15:35 11/14/24 15:35 11/14/24 15:40 Pulse Rate 121 H Respiratory Rate 29 H Blood Pressure 120/61 113/73 Pulse Oximetry 96 Oxygen Delivery Method Room Air Room Air Oxygen Flow Rate 11/14/24 15:40 11/14/24 15:45 11/14/24 15:45 Pulse Rate 135 H 128 H Respiratory Rate 37 H 35 H Blood Pressure 123/80 Pulse Oximetry 96 95 Oxygen Delivery Method Room Air Oxygen Flow Rate 11/14/24 15:50 11/14/24 15:50 11/14/24 15:55 Pulse Rate 126 H Respiratory Rate 37 H Blood Pressure 120/67 130/70 Pulse Oximetry 96 Oxygen Delivery Method Oxygen Flow Rate 11/14/24 15:55 11/14/24 16:00 11/14/24 16:00 Pulse Rate 125 H 131 H Respiratory Rate 41 H 42 H Blood Pressure 132/61 Pulse Oximetry 95 95 Oxygen Delivery Method Oxygen Flow Rate 11/14/24 16:05 11/14/24 16:05 11/14/24 16:10 Pulse Rate 124 H 127 H Respiratory Rate 38 H 40 H Blood Pressure 128/66 Pulse Oximetry 96 96 Oxygen Delivery Method Oxygen Flow Rate 11/14/24 16:10 11/14/24 16:15 11/14/24 16:15 Pulse Rate 131 H Respiratory Rate 45 H Blood Pressure 129/72 121/80 Pulse Oximetry 96 Oxygen Delivery Method Oxygen Flow Rate 11/14/24 16:20 11/14/24 16:20 11/14/24 16:24 Pulse Rate 135 H 134 H Respiratory Rate 51 H 38 H Blood Pressure 129/67 Pulse Oximetry 96 96 Oxygen Delivery Method Oxygen Flow Rate 11/14/24 16:25 11/14/24 16:25 11/14/24 16:30 Pulse Rate 119 H Respiratory Rate 37 H Blood Pressure 124/63 114/59 L Pulse Oximetry 96 Oxygen Delivery Method Room Air Oxygen Flow Rate 11/14/24 16:30 11/14/24 16:36 11/14/24 16:36 Pulse Rate 119 H 147 H Respiratory Rate 36 H 48 H Blood Pressure 129/65 Pulse Oximetry 96 95 Oxygen Delivery Method Oxygen Flow Rate 11/14/24 16:40 11/14/24 16:40 11/14/24 16:45 Pulse Rate 122 H Respiratory Rate 42 H Blood Pressure 122/63 122/68 Pulse Oximetry 96 Oxygen Delivery Method Oxygen Flow Rate 11/14/24 16:45 11/14/24 16:50 11/14/24 16:50 Pulse Rate 118 H 122 H Respiratory Rate 38 H 40 H Blood Pressure 117/62 Pulse Oximetry 95 96 Oxygen Delivery Method Oxygen Flow Rate 11/14/24 16:55 11/14/24 16:55 11/14/24 17:00 Pulse Rate 131 H 148 H Respiratory Rate 55 H 50 H Blood Pressure 124/58 L Pulse Oximetry 96 Oxygen Delivery Method Oxygen Flow Rate 11/14/24 17:00 11/14/24 17:05 11/14/24 17:05 Pulse Rate 144 H Respiratory Rate 45 H Blood Pressure 103/59 L 108/69 Pulse Oximetry 96 Oxygen Delivery Method Oxygen Flow Rate 11/14/24 17:10 11/14/24 17:10 11/14/24 17:15 Pulse Rate 157 H Respiratory Rate 47 H Blood Pressure 115/64 109/52 L Pulse Oximetry 95 Oxygen Delivery Method Oxygen Flow Rate 11/14/24 17:15 11/14/24 17:21 11/14/24 17:21 Pulse Rate 135 H 163 H Respiratory Rate 39 H 49 H Blood Pressure 100/50 L Pulse Oximetry 95 96 Oxygen Delivery Method Oxygen Flow Rate 11/14/24 17:25 11/14/24 17:25 11/14/24 17:30 Pulse Rate 159 H 147 H Respiratory Rate 43 H 49 H Blood Pressure 96/63 Pulse Oximetry 95 96 Oxygen Delivery Method Oxygen Flow Rate 11/14/24 17:31 11/14/24 17:31 11/14/24 17:36 Pulse Rate 158 H 127 H Respiratory Rate 52 H 56 H Blood Pressure 130/79 Pulse Oximetry 96 97 Oxygen Delivery Method Oxygen Flow Rate 11/14/24 17:36 11/14/24 17:40 11/14/24 17:40 Pulse Rate 129 H Respiratory Rate 49 H Blood Pressure 127/86 122/86 Pulse Oximetry 96 Oxygen Delivery Method Oxygen Flow Rate 11/14/24 17:45 11/14/24 17:45 11/14/24 18:01 Pulse Rate 123 H 116 H Respiratory Rate 44 H 44 H Blood Pressure 130/72 Pulse Oximetry 96 95 Oxygen Delivery Method Oxygen Flow Rate 11/14/24 18:30 11/14/24 19:00 11/14/24 19:30 Pulse Rate 114 H 121 H 120 H Respiratory Rate 47 H 56 H 56 H Blood Pressure Pulse Oximetry 94 93 92 Oxygen Delivery Method Room Air Room Air Oxygen Flow Rate 11/14/24 20:00 11/14/24 20:11 11/14/24 20:11 Pulse Rate 120 H 123 H Respiratory Rate 41 H Blood Pressure 116/55 L Pulse Oximetry 91 91 Oxygen Delivery Method Nasal Cannula Nasal Cannula Oxygen Flow Rate 1 1 11/14/24 20:15 11/14/24 20:15 11/14/24 20:20 Pulse Rate 124 H 123 H Respiratory Rate 30 H Blood Pressure 101/58 L Pulse Oximetry 91 91 Oxygen Delivery Method Nasal Cannula Nasal Cannula Oxygen Flow Rate 1 1 11/14/24 20:20 11/14/24 20:25 11/14/24 20:25 Pulse Rate 120 H Respiratory Rate 27 H Blood Pressure 101/61 114/56 L Pulse Oximetry 92 Oxygen Delivery Method Nasal Cannula Oxygen Flow Rate 1 11/14/24 20:30 11/14/24 20:30 11/14/24 20:35 Pulse Rate 116 H 115 H Respiratory Rate 26 H 26 H Blood Pressure 105/61 Pulse Oximetry 91 92 Oxygen Delivery Method Nasal Cannula Nasal Cannula Oxygen Flow Rate 1 2 11/14/24 20:35 11/14/24 20:40 11/14/24 20:40 Pulse Rate 111 H Respiratory Rate 26 H Blood Pressure 95/68 108/68 Pulse Oximetry 92 Oxygen Delivery Method Nasal Cannula Oxygen Flow Rate 2 11/14/24 20:45 11/14/24 20:45 11/14/24 20:50 Pulse Rate 116 H 110 H Respiratory Rate 24 26 H Blood Pressure 98/53 L Pulse Oximetry 92 92 Oxygen Delivery Method Nasal Cannula Nasal Cannula Oxygen Flow Rate 2 2 11/14/24 20:50 11/14/24 20:55 11/14/24 20:55 Pulse Rate 106 H Respiratory Rate 24 Blood Pressure 101/55 L 105/57 L Pulse Oximetry 92 Oxygen Delivery Method Nasal Cannula Oxygen Flow Rate 2 11/14/24 21:00 11/14/24 21:00 11/14/24 21:05 Pulse Rate 111 H 111 H Respiratory Rate 42 H 40 H Blood Pressure 116/55 L Pulse Oximetry 92 92 Oxygen Delivery Method Nasal Cannula Nasal Cannula Oxygen Flow Rate 2 2 11/14/24 21:05 11/14/24 21:10 11/14/24 21:10 Pulse Rate 111 H Respiratory Rate 36 H Blood Pressure 107/51 L 95/58 L Pulse Oximetry 92 Oxygen Delivery Method Nasal Cannula Oxygen Flow Rate 2 11/14/24 21:15 11/14/24 21:15 11/14/24 21:20 Pulse Rate 109 H 113 H Respiratory Rate 36 H 42 H Blood Pressure 104/56 L Pulse Oximetry 91 92 Oxygen Delivery Method Nasal Cannula Nasal Cannula Oxygen Flow Rate 2 2 11/14/24 21:20 11/14/24 21:25 11/14/24 21:25 Pulse Rate 107 H Respiratory Rate 30 H Blood Pressure 107/59 L 104/59 L Pulse Oximetry 92 Oxygen Delivery Method Nasal Cannula Oxygen Flow Rate 2 11/14/24 21:30 11/14/24 21:30 11/14/24 21:35 Pulse Rate 114 H Respiratory Rate 32 H Blood Pressure 104/72 93/62 Pulse Oximetry 91 Oxygen Delivery Method Nasal Cannula Oxygen Flow Rate 2 11/14/24 21:35 11/14/24 21:40 11/14/24 21:40 Pulse Rate 111 H 106 H Respiratory Rate 34 H 34 H Blood Pressure 107/58 L Pulse Oximetry 90 L 92 Oxygen Delivery Method Nasal Cannula Nasal Cannula Oxygen Flow Rate 2 2 11/14/24 21:45 11/14/24 21:45 11/14/24 21:50 Pulse Rate 109 H Respiratory Rate 38 H Blood Pressure 94/58 L 103/58 L Pulse Oximetry 100 Oxygen Delivery Method Nasal Cannula Oxygen Flow Rate 2 11/14/24 21:50 11/14/24 21:55 11/14/24 21:55 Pulse Rate 103 H 104 H Respiratory Rate 36 H Blood Pressure 103/61 Pulse Oximetry 99 91 Oxygen Delivery Method Nasal Cannula Nasal Cannula Oxygen Flow Rate 2 2 11/14/24 22:00 11/14/24 22:00 11/14/24 22:05 Pulse Rate 116 H Respiratory Rate Blood Pressure 102/57 L 100/58 L Pulse Oximetry 91 Oxygen Delivery Method Nasal Cannula Oxygen Flow Rate 2 11/14/24 22:05 11/14/24 22:10 11/14/24 22:10 Pulse Rate 110 H 103 H Respiratory Rate Blood Pressure 101/55 L Pulse Oximetry 92 92 Oxygen Delivery Method Nasal Cannula Nasal Cannula Oxygen Flow Rate 2 2 11/14/24 22:15 11/14/24 22:15 11/14/24 22:20 Pulse Rate 112 H Respiratory Rate Blood Pressure 98/58 L 109/57 L Pulse Oximetry 90 L Oxygen Delivery Method Nasal Cannula Oxygen Flow Rate 2 11/14/24 22:20 11/14/24 22:25 11/14/24 22:25 Pulse Rate 104 H 110 H Respiratory Rate 28 H 24 Blood Pressure 115/58 L Pulse Oximetry 91 91 Oxygen Delivery Method Nasal Cannula Nasal Cannula Oxygen Flow Rate 2 2 11/14/24 22:30 11/14/24 22:30 11/14/24 22:30 Pulse Rate 101 H 101 H Respiratory Rate 32 H 38 H Blood Pressure 100/62 Pulse Oximetry 92 92 Oxygen Delivery Method Nasal Cannula Nasal Cannula Oxygen Flow Rate 2 2 11/14/24 22:36 11/14/24 22:36 Pulse Rate 113 H Respiratory Rate 36 H Blood Pressure 94/71 Pulse Oximetry 92 Oxygen Delivery Method Oximask Oxygen Flow Rate 4 MDM - Chest Pain <Deshawn Gilmore MD - Last Filed: 11/14/24 18:23> Lab Data Lab results narrative: CBC is unremarkable, INR unremarkable for elevation at 1.8, chemistries remarkable for a bilirubin of 2.2 probably not clinically significant today. Normal troponin, mildly elevated proBNP 11/14/24 14:11 11/14/24 14:11 Labs: Lab Results 11/14/24 11/14/24 11/14/24 Range/Units 14:11 17:26 18:01 WBC 10.9 (4.5-11.0) X10^3/uL RBC 4.95 (4.5-5.9) X10^6/uL Hgb 15.9 (13.5-17.5) g/dL Hct 45.2 (41-53) % MCV 91.3 (80-100) fL MCH 32.1 (26-34) PG MCHC 35.1 (30-36) % RDW 12.6 (11.6-14.8) % Plt Count 201 (150-400) X10^3/uL Neut % (Auto) 90.8 H (50-75) % Lymph % (Auto) 3.4 L (25-40) % [place] % (Auto) 5.3 (3-14) % Eos % (Auto) 0.2 L (2-4) % Baso % (Auto) 0.3 (0-2) % Neut # (Auto) 9900 H (2089-9953) /uL Lymph # (Auto) 400 L (0802-6971) /uL [place] # (Auto) 600 (0-900) /uL Eos # (Auto) 0 (0-450) /uL Baso # (Auto) 0 (0-100) /uL PT 20.6 H (9.4-12.5) SECONDS INR 1.8 H (0.9-1.3) APTT 35 (25.1-36.5) SECONDS Sodium 137 (137-145) mmol/L Potassium 4.0 (3.4-5.1) mmol/L Chloride 103 (98-107) mmol/L Carbon Dioxide 22 (22-32) mmol/L BUN 15 (9-20) mg/dL Creatinine 1.00 (0.66-1.25) mg/dL Estimated GFR > 60 (>60) mL/min BUN/Creatinine Ratio 15.0 (6-22) Glucose 107 H (70-100) mg/dL Lactate (0.7-2.1) mmol/L Calcium 8.9 (8.4-10.2) mg/dL Magnesium 1.7 (1.6-2.3) mg/dL Total Bilirubin 2.2 H (0.2-1.3) mg/dL AST 36 (17-59) IU/L ALT 30 (<50) IU/L Alkaline Phosphatase 61 (38-126) U/L Total Creatine Kinase 69 (55-170) U/L Troponin I < 0.012 < 0.012 (0.01-0.034) ng/mL NT-Pro-B Natriuret Pep 455 H (<125) pg/mL Total Protein 7.4 (6.3-8.2) g/dL Albumin 4.8 (3.5-5.0) g/dL Globulin 2.6 (1.7-4.1) g/dL Albumin/Globulin Ratio 1.8 (1.0-2.8) Lipase 111 (23-300) U/L Urine RBC None seen (0-5/HPF) Urine WBC 0-1/hpf (0-5/HPF) Ur Squamous Epith Cells None seen (0-5/HPF) Urine Bacteria Moderate (10-30) H (None) Urine Mucus 4+ H (Negative) Ur Culture Indicated? Cult not indicated Vol Urine Centrifuged 10ml (spun) 11/14/24 11/14/24 Range/Units 19:00 20:53 WBC (4.5-11.0) X10^3/uL RBC (4.5-5.9) X10^6/uL Hgb (13.5-17.5) g/dL Hct (41-53) % MCV (80-100) fL MCH (26-34) PG MCHC (30-36) % RDW (11.6-14.8) % Plt Count (150-400) X10^3/uL Neut % (Auto) (50-75) % Lymph % (Auto) (25-40) % [place] % (Auto) (3-14) % Eos % (Auto) (2-4) % Baso % (Auto) (0-2) % Neut # (Auto) (2649-6541) /uL Lymph # (Auto) (7260-1449) /uL [place] # (Auto) (0-900) /uL Eos # (Auto) (0-450) /uL Baso # (Auto) (0-100) /uL PT (9.4-12.5) SECONDS INR (0.9-1.3) APTT (25.1-36.5) SECONDS Sodium (137-145) mmol/L Potassium (3.4-5.1) mmol/L Chloride (98-107) mmol/L Carbon Dioxide (22-32) mmol/L BUN (9-20) mg/dL Creatinine (0.66-1.25) mg/dL Estimated GFR (>60) mL/min BUN/Creatinine Ratio (6-22) Glucose (70-100) mg/dL Lactate 2.2 H 2.1 (0.7-2.1) mmol/L Calcium (8.4-10.2) mg/dL Magnesium (1.6-2.3) mg/dL Total Bilirubin (0.2-1.3) mg/dL AST (17-59) IU/L ALT (<50) IU/L Alkaline Phosphatase (38-126) U/L Total Creatine Kinase (55-170) U/L Troponin I (0.01-0.034) ng/mL NT-Pro-B Natriuret Pep (<125) pg/mL Total Protein (6.3-8.2) g/dL Albumin (3.5-5.0) g/dL Globulin (1.7-4.1) g/dL Albumin/Globulin Ratio (1.0-2.8) Lipase (23-300) U/L Urine RBC (0-5/HPF) Urine WBC (0-5/HPF) Ur Squamous Epith Cells (0-5/HPF) Urine Bacteria (None) Urine Mucus (Negative) Ur Culture Indicated? Vol Urine Centrifuged Imaging Data Chest x-ray: My Impression: Independent review of chest x-ray, appearing to have a left sided infiltrate Radiologist's Impression: [place] [address] XRay Report Signed Patient: Miles Cox MR#: [id number] : 1970 Acct:[id number] Age/Sex: 53 / M Date of Service: 11/14/24 Loc: ED Accession Number: [id number] Procedure: XR chest 1V Ordering Provider: Deshawn Gilmore MD PROCEDURE: XR CHEST 1V INDICATIONS: chest pain TECHNIQUE: One view of the chest was acquired. COMPARISON: None. FINDINGS AND IMPRESSION: Left perihilar consolidation suspicious for pneumonia. No pleural effusions. Consider future imaging surveillance to assess for resolution. Mild cardiomegaly. Degenerative osseous changes. ECG Data Interpretation: ECG shows atrial fibrillation/flutter ventricular rate of 130. Lateral T-wave inversions no diagnostic ST elevation Repeat EKG shows atrial fibrillation/flutter heart rate is [address] depression <Sunny Arita, - Last Filed: 11/14/24 22:45> Lab Data Labs: Lab Results 11/14/24 11/14/24 11/14/24 Range/Units 14:11 17:26 18:01 WBC 10.9 (4.5-11.0) X10^3/uL RBC 4.95 (4.5-5.9) X10^6/uL Hgb 15.9 (13.5-17.5) g/dL Hct 45.2 (41-53) % MCV 91.3 (80-100) fL MCH 32.1 (26-34) PG MCHC 35.1 (30-36) % RDW 12.6 (11.6-14.8) % Plt Count 201 (150-400) X10^3/uL Neut % (Auto) 90.8 H (50-75) % Lymph % (Auto) 3.4 L (25-40) % [place] % (Auto) 5.3 (3-14) % Eos % (Auto) 0.2 L (2-4) % Baso % (Auto) 0.3 (0-2) % Neut # (Auto) 9900 H (6450-9483) /uL Lymph # (Auto) 400 L (2710-5136) /uL [place] # (Auto) 600 (0-900) /uL Eos # (Auto) 0 (0-450) /uL Baso # (Auto) 0 (0-100) /uL PT 20.6 H (9.4-12.5) SECONDS INR 1.8 H (0.9-1.3) APTT 35 (25.1-36.5) SECONDS Sodium 137 (137-145) mmol/L Potassium 4.0 (3.4-5.1) mmol/L Chloride 103 (98-107) mmol/L Carbon Dioxide 22 (22-32) mmol/L BUN 15 (9-20) mg/dL Creatinine 1.00 (0.66-1.25) mg/dL Estimated GFR > 60 (>60) mL/min BUN/Creatinine Ratio 15.0 (6-22) Glucose 107 H (70-100) mg/dL Lactate (0.7-2.1) mmol/L Calcium 8.9 (8.4-10.2) mg/dL Magnesium 1.7 (1.6-2.3) mg/dL Total Bilirubin 2.2 H (0.2-1.3) mg/dL AST 36 (17-59) IU/L ALT 30 (<50) IU/L Alkaline Phosphatase 61 (38-126) U/L Total Creatine Kinase 69 (55-170) U/L Troponin I < 0.012 < 0.012 (0.01-0.034) ng/mL NT-Pro-B Natriuret Pep 455 H (<125) pg/mL Total Protein 7.4 (6.3-8.2) g/dL Albumin 4.8 (3.5-5.0) g/dL Globulin 2.6 (1.7-4.1) g/dL Albumin/Globulin Ratio 1.8 (1.0-2.8) Lipase 111 (23-300) U/L Urine RBC None seen (0-5/HPF) Urine WBC 0-1/hpf (0-5/HPF) Ur Squamous Epith Cells None seen (0-5/HPF) Urine Bacteria Moderate (10-30) H (None) Urine Mucus 4+ H (Negative) Ur Culture Indicated? Cult not indicated Vol Urine Centrifuged 10ml (spun) 11/14/24 11/14/24 Range/Units 19:00 20:53 WBC (4.5-11.0) X10^3/uL RBC (4.5-5.9) X10^6/uL Hgb (13.5-17.5) g/dL Hct (41-53) % MCV (80-100) fL MCH (26-34) PG MCHC (30-36) % RDW (11.6-14.8) % Plt Count (150-400) X10^3/uL Neut % (Auto) (50-75) % Lymph % (Auto) (25-40) % [place] % (Auto) (3-14) % Eos % (Auto) (2-4) % Baso % (Auto) (0-2) % Neut # (Auto) (0852-2866) /uL Lymph # (Auto) (7504-3428) /uL [place] # (Auto) (0-900) /uL Eos # (Auto) (0-450) /uL Baso # (Auto) (0-100) /uL PT (9.4-12.5) SECONDS INR (0.9-1.3) APTT (25.1-36.5) SECONDS Sodium (137-145) mmol/L Potassium (3.4-5.1) mmol/L Chloride (98-107) mmol/L Carbon Dioxide (22-32) mmol/L BUN (9-20) mg/dL Creatinine (0.66-1.25) mg/dL Estimated GFR (>60) mL/min BUN/Creatinine Ratio (6-22) Glucose (70-100) mg/dL Lactate 2.2 H 2.1 (0.7-2.1) mmol/L Calcium (8.4-10.2) mg/dL Magnesium (1.6-2.3) mg/dL Total Bilirubin (0.2-1.3) mg/dL AST (17-59) IU/L ALT (<50) IU/L Alkaline Phosphatase (38-126) U/L Total Creatine Kinase (55-170) U/L Troponin I (0.01-0.034) ng/mL NT-Pro-B Natriuret Pep (<125) pg/mL Total Protein (6.3-8.2) g/dL Albumin (3.5-5.0) g/dL Globulin (1.7-4.1) g/dL Albumin/Globulin Ratio (1.0-2.8) Lipase (23-300) U/L Urine RBC (0-5/HPF) Urine WBC (0-5/HPF) Ur Squamous Epith Cells (0-5/HPF) Urine Bacteria (None) Urine Mucus (Negative) Ur Culture Indicated? Vol Urine Centrifuged Imaging Data CT scan - abdomen/pelvis: Radiologist's Impression: [place] [address] CT Scan Report Signed Patient: Miles Cox MR#: [id number] : 1970 Acct:[id number] Age/Sex: 53 / M Date of Service: 11/14/24 Loc: ED Accession Number: [id number] Procedure: CT abdomen pelvis w con Ordering Provider: Deshawn Gilmore MD PROCEDURE: CT ABDOMEN PELVIS W CON INDICATIONS: diffuse abdominal pain, rigid abd TECHNIQUE: After the administration of intravenous contrast, axial sections acquired from the lung bases to the pubic symphysis. Coronal and sagittal reformats were performed. For radiation dose reduction, the following was used: automated exposure control, adjustment of mA and/or kV according to patient size. COMPARISON: [facility], CR, XR CHEST 1V, 11/14/2024, 14:16. FINDINGS: Image quality: There is artifact associated with the metallic hardware. Artifact from the metallic hardware is reduced by metal reconstruction algorithm. Lower Chest: Poorly defined left lower lobe infiltrate is seen. ABDOMEN: Liver: No solid mass. Gallbladder: No radiopaque gallstones or wall thickening. Biliary ducts: No biliary dilation. Pancreas: No ductal dilation. Spleen: Size is within normal limits. Adrenal Glands: There is a low-density right adrenal nodule seen, with surrounding calcification, measuring 5 Hounsfield units and 16 mm. No left adrenal nodule is seen. Kidneys and Ureters: No hydronephrosis. No solid mass. At the superior pole of the right kidney, there is a low-density lesion seen with internal calcification that measures 2 cm and 24 Hounsfield units. Stomach and Bowel: Normal colonic caliber, without significant wall thickening. No findings of diverticulitis. A normal appendix is seen, which is best demonstrated on series 6 images 49 through 54. No focal right lower quadrant inflammatory change is seen. Peritoneum: No abnormal intraperitoneal fluid. No free air. Ventral Wall: No significant ventral hernia. Abdominal Nodes: No retroperitoneal or mesenteric adenopathy by size criteria. Vessels: Aorta and inferior vena cava are normal in size. PELVIS: Pelvic Organs: Unremarkable. Bladder: No bladder wall thickening, accounting for underdistention. Pelvic Nodes: No enlarged lymph nodes. Miscellaneous: No inguinal hernias are seen. Bones: No aggressive osseous abnormality. Right hip arthroplasty hardware is seen. Age-appropriate bony degenerative changes are seen. IMPRESSION: No significant acute intra-abdominal abnormality is seen. Normal appendix. Negative for diverticulitis. There is poorly defined left lower lobe infiltrate. 2 cm likely hyperdense cyst at the superior pole of the right kidney. - Further workup is recommended, beginning with a dedicated renal ultrasound. MDM Narrative Medical decision making narrative: 53-year-old male with a history of AFib on Xarelto presents from home for evaluation of chest pain abdominal pain nausea and vomiting started spontaneously yesterday, states that the pain migrated from his chest to his abdomen earlier today states worse in the left lower quadrant. No history surgeries to the abdomen, states that he does not take any medications for rate control for his AFib. Patient had lab work imaging performed here in the emergency department, EKG a fib however nonischemic in nature, patient with troponin negative x2 chest x-ray showing possible perihilar consolidation concerning for pneumonia. CT scan showing no acute abnormalities within the abdomen, still showing possible consolidation in the left lung 1st dose of antibiotics was given here. 2124: Patient was re-evaluated states that pain has slightly improved but still having significant amount of abdominal pain states that it is now 6/10, patient has had multiple doses analgesics but still having significant amount of pain, repeat examined with exam is still non peritoneal nature, patient also intermittently hypoxic but this is secondary to the fact that he is having rapid shallow breathing secondary to the pain in his abdomen, therefore patient will require admission to the hospital for intractable abdominal pain repeat abdominal exam as well as repeat lab work 5: The patient's management plan was discussed Dr. Albert, who agrees to admit the patient to their service and assumes care of this patient at this time. Full admission orders will be placed by the primary team. Discharge Plan Departure Patient Disposition: Admitted as Observation Clinical Impression: Intractable abdominal pain, Pneumonia Admit Date/Time: 11/14/24 22:44 Admit Provider: Janice Albert
--- NOTE | 2024-11-14 17:30 | PC.NURSE ---
Asked MD for pain medications. MD stated to get EKG. RT called for EKG. No new medication orders
--- NOTE | 2024-11-14 17:35 | EKG_ITS ---
[facility] [address] [place] [address] Test Date: 2024-11-14 Pat Name: Miles Cox Department: [facility] Room: Gender: Male [employer]: [place] : 1970 Requested By: Order Number: [id number] Reading MD: Killian Lee Measurements Intervals [place] Rate: 121 P: MT: QRS: 52 QRSD: 72 T: -58 QT: 298 QTc: 423 Interpretive Statements Atrial fibrillation with rapid ventricular response Septal infarct , age undetermined ST & T wave abnormality, consider lateral ischemia Electronically Signed On 11-15-2024 7:24:48 PST by Killian Lee
[2024-11-14] MEDS: fentaNYL 100 MCG/2 ML INJ 50 MCG IV ×2 (17:36→17:46)
--- NOTE | 2024-11-14 17:42 | DI.CT.S_ITS ---
PROCEDURE: CT ABDOMEN PELVIS W CON INDICATIONS: diffuse abdominal pain, rigid abd TECHNIQUE: After the administration of intravenous contrast, axial sections acquired from the lung bases to the pubic symphysis. Coronal and sagittal reformats were performed. For radiation dose reduction, the following was used: automated exposure control, adjustment of mA and/or kV according to patient size. COMPARISON: [facility], CR, XR CHEST 1V, 11/14/2024, 14:16. FINDINGS: Image quality: There is artifact associated with the metallic hardware. Artifact from the metallic hardware is reduced by metal reconstruction algorithm. Lower Chest: Poorly defined left lower lobe infiltrate is seen. ABDOMEN: Liver: No solid mass. Gallbladder: No radiopaque gallstones or wall thickening. Biliary ducts: No biliary dilation. Pancreas: No ductal dilation. Spleen: Size is within normal limits. Adrenal Glands: There is a low-density right adrenal nodule seen, with surrounding calcification, measuring 5 Hounsfield units and 16 mm. No left adrenal nodule is seen. Kidneys and Ureters: No hydronephrosis. No solid mass. At the superior pole of the right kidney, there is a low-density lesion seen with internal calcification that measures 2 cm and 24 Hounsfield units. Stomach and Bowel: Normal colonic caliber, without significant wall thickening. No findings of diverticulitis. A normal appendix is seen, which is best demonstrated on series 6 images 49 through 54. No focal right lower quadrant inflammatory change is seen. Peritoneum: No abnormal intraperitoneal fluid. No free air. Ventral Wall: No significant ventral hernia. Abdominal Nodes: No retroperitoneal or mesenteric adenopathy by size criteria. Vessels: Aorta and inferior vena cava are normal in size. PELVIS: Pelvic Organs: Unremarkable. Bladder: No bladder wall thickening, accounting for underdistention. Pelvic Nodes: No enlarged lymph nodes. Miscellaneous: No inguinal hernias are seen. Bones: No aggressive osseous abnormality. Right hip arthroplasty hardware is seen. Age-appropriate bony degenerative changes are seen. IMPRESSION: No significant acute intra-abdominal abnormality is seen. Normal appendix. Negative for diverticulitis. There is poorly defined left lower lobe infiltrate. 2 cm likely hyperdense cyst at the superior pole of the right kidney. - Further workup is recommended, beginning with a dedicated renal ultrasound. Additional findings: Right hip arthroplasty hardware Low-density right adrenal nodule seen, which is regarded to be benign Dictated by: Moe Lizama M.D. on 11/14/2024 at 17:34 Approved by: Moe Lizama M.D. on 11/14/2024 at 17:38
[2024-11-14 17:56] LABS: Troponin I < 0.012 ng/mL (0.01-0.034)
[2024-11-14 18:19] LABS: Bacteria Urine Moderate (10-30); Mucus Urine 4+ (Negative); RBC Urine None Seen (0-5/HPF); Squamous Epithelial Cell Urine None Seen (0-5/HPF); Urine Volume 10mL (spun); WBC Urine 0-1/HPF (0-5/HPF)
[2024-11-14 18:21] LABS: Culture Indicated Urine Cult Not Indicated
[2024-11-14] MEDS: MORPHINE 4 MG/ML INJ IV (18:47)
[2024-11-14] MEDS: ONDANSETRON 4 MG/2 ML INJ IV (18:47)
[2024-11-14] MEDS: SODIUM CHLORIDE 0.9% 1,000 ML 1000 ML IV (18:51)
[2024-11-14] MEDS: DOXYCYCLINE 100 MG in SODIUM CHLORIDE 0.9% 100 ML IV (19:00)
[2024-11-14 19:17] LABS: Lactate (Lactic Acid) 2.2 mmol/L (0.7-2.1)
[2024-11-14] MEDS: HYDROMORPHONE 1 MG INJ IV ×2 (19:29→22:35)
--- NOTE | 2024-11-14 19:45 | PC.NURSE ---
Pt with shallow, rapid breathing d/t pain. Dr. Bosch made aware. Pt placed on O2.
[2024-11-14 20:41] LABS: Reflexed Lactate in 2 Hours Y
--- NOTE | 2024-11-14 20:59 | PC.NURSE ---
Repeat lactic drawn from existing IV line without complications.
[2024-11-14 21:09] LABS: Lactate 2HR (Lactic Acid Rflx) 2.1 mmol/L (0.7-2.1)
--- NOTE | 2024-11-14 22:30 | PC.NURSE ---
Pt continues to have shallow rapid breathing d/t pain.Req more pain med. Order rcv'd and administered.
[2024-11-14 23:02] LABS: Base Excess VBG -4.2 mmol/L (0-4); HCO3 VBG 21 mmol/L (24-28); Oxygen Saturation VBG 83 % (70-75); PO2 VBG 50 mmHg (35-45); Total CO2 VBG 21 mmol/L (24-29); pH VBG 7.34 (7.33-7.43)
[2024-11-14 23:13] LABS: D Dimer 692 ng/ml (<500)
[2024-11-14] MEDS: cefTRIAXone 2,000 MG in SODIUM CHLORIDE 0.9% 100 ML 200 MG IV (23:13)
[2024-11-14 23:21] LABS: Procalcitonin 4.83 ng/mL (<0.5)
[2024-11-15] VITALS (50 sets, daily range): BP systolic 81–158; BP diastolic 46–89; PULSE 86–130; RESP 14–64; TEMP 35.5–36.4; O2SAT 87–100
--- NOTE | 2024-11-15 00:01 | DI.CT.S_ITS ---
PROCEDURE: CT ANGIO CHEST PE PROTOCOL INDICATIONS: hypoxemia elevated ddimer TECHNIQUE: After the administration of intravenous contrast, 2 mm thick sections acquired from the pulmonary apices to the posterior costophrenic angles. 3-dimensional maximum intensity projection (MIP) coronal and sagittal reformats were then acquired through the thorax. For radiation dose reduction, the following was used: automated exposure control, adjustment of mA and/or kV according to patient size. COMPARISON: None. FINDINGS: Image quality: Diagnostic. Pulmonary arteries: Pulmonary arteries are normal in size, and demonstrate no intraluminal filling defects to suggest central pulmonary embolism. Lower Neck: No enlarged lymph nodes. Thyroid: No thyroid nodules which require sonographic follow up, per consensus guidelines. Axillae: No enlarged lymph nodes. Chest Wall: Unremarkable. Bones: Unremarkable. Lungs and Pleura: Small left pleural effusion. Large consolidative opacity throughout the left lower lobe. Small consolidative opacity at the right base versus atelectasis. Heart: Heart size is normal. No pericardial effusion. Thoracic Vessels: No aortic aneurysm. Mediastinum and Lelia: No enlarged lymph nodes. Esophagus: No wall thickening. No hiatal hernia. Upper Abdomen: Calcified right adrenal nodule is redemonstrated. Please refer to recent CT of the abdomen and pelvis. IMPRESSION: No pulmonary embolus. Small left pleural effusion. Large consolidative opacity in the left lower lobe concerning for pneumonia. Recommend follow-up CT chest in 3 months to ensure resolution and exclude underlying neoplasm. Small consolidative opacity at the right base versus atelectasis. Dictated by: Kyle Pitt M.D. on 11/15/2024 at 1:13 Approved by: Kyle Pitt M.D. on 11/15/2024 at 1:19
--- NOTE | 2024-11-15 00:17 | PC.NURSE ---
Addendum entered by Kenzie Siegel R.N. 11/15/24 00:21: pt on a heated high flow, ABG's being done at the moment. pt falls asleep easily while speaking to staff. respiratory panel done and send to lab. pt has an order from CT angio, unable to take down to CT due to his respiratory status. pt seating up in bed, 25 degrees at the moment. pt being transfer to icu to monitor more close. pt afib in the low 100's. Original Note: pt admitted from ER around 2310, pt drowsy on 4 L oximask, sating low 90's, breathing greater 30 respirations, lungs are diminished and thight. pt is hypotensive. Requiring more oxygen, RT at the bedside, pt now on a heatend
[2024-11-15 00:36] LABS: Allen Test for ABG Passed? Positive; Base Excess ABG -3.4 mmol/L (-2-3); Blood Gas Collection Site Right Radial; HCO3 ABG 22 mmol/L (23-27); Oxygen Saturation ABG 98 % (95-100); PCO2 ABG 40.4 mmHg (35-45); PO2 ABG 101 mmHg (80-100); TCO2 ABG 21 mmol/L (23-27); pH ABG 7.35 (7.35-7.45)
--- NOTE | 2024-11-15 00:38 | P.HP_ITS ---
History of Present Illness History of Present Illness Date Patient Seen: 11/15/24 Date of Onset of Symptoms: 11/14/24 Chief complaint: Chest Pain/AFIB/SOB Narrative: 53 y/o M, h/o HTN, PAF, s/p Ablation, cardioversions, follows with Family Medicine Physician, is on Chronic A/C with Xarelto, even though has no h/o DM, Stroke, CHF, and CHADSVASC Score less than 1, not on rate control med/s, presented to ED, with sudden onset of Nausea, and vomiting, non bloody , no coffee grounds. Had transient Ant Chest pain around 1:30 am early Friday morning. No radiation of CP to his arms/ shoulders, back or neck/ jaw. CP not associated with Exertion or SOB. No Light Headedness or Syncope. Denies cough, had noted chills, and CP then localized to Left lower quadrant of abd, at high intensity 10/10. He was evaluated in ED, and had elevated D dimer and mild elevated Pro BNP: 455 . CTAP : no acute pathology in abd/ Pelvis, there was a LLL Lung density noted c/w possible Pneumobia. Pt also was in A fib RVR, with Hypotension, SBP ranging between mid 80s to low 90s Was hypoxic on RA, requiring 10 L O2 via Oxymask to maintain O2 sats : 93% Troponin was negative x 2 : < 0.012 EKG : A fib VR 130, Lateral T wave inversion, no ST elevation A CTA Chest done : No PE , extensive Left sided PNA noted Had Elevated Procalcitinin and Elevated Lactate He had bl cx done, started on IVF and Ceftriaxone IV and Doxycycline. He was admitted to Hospitalist Medicine team, and was transferred to ICU for close monitoring , and put on HFNC at 50 % FiO2 , with ABG : ph 7.3/PCO2 40s, PO2 > 100 O2 titrated down to keep O2 sats at 94% [facility] Medical History (Updated 11/15/24 @ 07:39 by Janice Albert MD) Acute respiratory failure with hypoxia Atrial fibrillation History of cardioversion Surgical History History of total right hip arthroplasty (03/09/24) Anesthesia History of cardiac radiofrequency ablation (~2021) History of hernia repair History of hand surgery Family History Father Liver failure Grandfather Hyperlipidemia Hypertension Grandmother Hyperlipidemia Hypertension Grandfather Hyperlipidemia Hypertension Grandmother Hyperlipidemia Hypertension Social History household members: spouse and children Smoking Status: Former smoker Smokeless tobacco user: snus (1 can q3 days) alcohol intake: current substance use type: does not use Meds Home Medications and Allergies Home Medications Medication Instructions Recorded Confirmed Type rivaroxaban 20 mg tablet 20 mg PO DAILY #90 tabs 10/13/24 11/14/24 Rx Allergies Allergy/AdvReac Type Severity Reaction Status Date / Time No Known Drug Allergies Allergy Verified 10/13/24 08:07 Review of Systems Review of Systems ROS: Yes All systems reviewed with the patient and are negative except as otherwise documented Exam Vital Signs (past 8 hours): - 11/14/24 16:40 11/14/24 16:40 11/14/24 16:45 Temperature Pulse Rate 122 H Respiratory Rate 42 H Blood Pressure 122/63 122/68 Pulse Oximetry 96 Oxygen Delivery Method Oxygen Flow Rate Fraction of Inspired Oxygen 11/14/24 16:45 11/14/24 16:50 11/14/24 16:50 Temperature Pulse Rate 118 H 122 H Respiratory Rate 38 H 40 H Blood Pressure 117/62 Pulse Oximetry 95 96 Oxygen Delivery Method Oxygen Flow Rate Fraction of Inspired Oxygen 11/14/24 16:55 11/14/24 16:55 11/14/24 17:00 Temperature Pulse Rate 131 H 148 H Respiratory Rate 55 H 50 H Blood Pressure 124/58 L Pulse Oximetry 96 Oxygen Delivery Method Oxygen Flow Rate Fraction of Inspired Oxygen 11/14/24 17:00 11/14/24 17:05 11/14/24 17:05 Temperature Pulse Rate 144 H Respiratory Rate 45 H Blood Pressure 103/59 L 108/69 Pulse Oximetry 96 Oxygen Delivery Method Oxygen Flow Rate Fraction of Inspired Oxygen 11/14/24 17:10 11/14/24 17:10 11/14/24 17:15 Temperature Pulse Rate 157 H Respiratory Rate 47 H Blood Pressure 115/64 109/52 L Pulse Oximetry 95 Oxygen Delivery Method Oxygen Flow Rate Fraction of Inspired Oxygen 11/14/24 17:15 11/14/24 17:21 11/14/24 17:21 Temperature Pulse Rate 135 H 163 H Respiratory Rate 39 H 49 H Blood Pressure 100/50 L Pulse Oximetry 95 96 Oxygen Delivery Method Oxygen Flow Rate Fraction of Inspired Oxygen 11/14/24 17:25 11/14/24 17:25 11/14/24 17:30 Temperature Pulse Rate 159 H 147 H Respiratory Rate 43 H 49 H Blood Pressure 96/63 Pulse Oximetry 95 96 Oxygen Delivery Method Oxygen Flow Rate Fraction of Inspired Oxygen 11/14/24 17:31 11/14/24 17:31 11/14/24 17:36 Temperature Pulse Rate 158 H 127 H Respiratory Rate 52 H 56 H Blood Pressure 130/79 Pulse Oximetry 96 97 Oxygen Delivery Method Oxygen Flow Rate Fraction of Inspired Oxygen 11/14/24 17:36 11/14/24 17:40 11/14/24 17:40 Temperature Pulse Rate 129 H Respiratory Rate 49 H Blood Pressure 127/86 122/86 Pulse Oximetry 96 Oxygen Delivery Method Oxygen Flow Rate Fraction of Inspired Oxygen 11/14/24 17:45 11/14/24 17:45 11/14/24 18:01 Temperature Pulse Rate 123 H 116 H Respiratory Rate 44 H 44 H Blood Pressure 130/72 Pulse Oximetry 96 95 Oxygen Delivery Method Oxygen Flow Rate Fraction of Inspired Oxygen 11/14/24 18:30 11/14/24 19:00 11/14/24 19:30 Temperature Pulse Rate 114 H 121 H 120 H Respiratory Rate 47 H 56 H 56 H Blood Pressure Pulse Oximetry 94 93 92 Oxygen Delivery Method Room Air Room Air Oxygen Flow Rate Fraction of Inspired Oxygen 11/14/24 20:00 11/14/24 20:11 11/14/24 20:11 Temperature Pulse Rate 120 H 123 H Respiratory Rate 41 H Blood Pressure 116/55 L Pulse Oximetry 91 91 Oxygen Delivery Method Nasal Cannula Nasal Cannula Oxygen Flow Rate 1 1 Fraction of Inspired Oxygen 11/14/24 20:15 11/14/24 20:15 11/14/24 20:20 Temperature Pulse Rate 124 H 123 H Respiratory Rate 30 H Blood Pressure 101/58 L Pulse Oximetry 91 91 Oxygen Delivery Method Nasal Cannula Nasal Cannula Oxygen Flow Rate 1 1 Fraction of Inspired Oxygen 11/14/24 20:20 11/14/24 20:25 11/14/24 20:25 Temperature Pulse Rate 120 H Respiratory Rate 27 H Blood Pressure 101/61 114/56 L Pulse Oximetry 92 Oxygen Delivery Method Nasal Cannula Oxygen Flow Rate 1 Fraction of Inspired Oxygen 11/14/24 20:30 11/14/24 20:30 11/14/24 20:35 Temperature Pulse Rate 116 H 115 H Respiratory Rate 26 H 26 H Blood Pressure 105/61 Pulse Oximetry 91 92 Oxygen Delivery Method Nasal Cannula Nasal Cannula Oxygen Flow Rate 1 2 Fraction of Inspired Oxygen 11/14/24 20:35 11/14/24 20:40 11/14/24 20:40 Temperature Pulse Rate 111 H Respiratory Rate 26 H Blood Pressure 95/68 108/68 Pulse Oximetry 92 Oxygen Delivery Method Nasal Cannula Oxygen Flow Rate 2 Fraction of Inspired Oxygen 11/14/24 20:45 11/14/24 20:45 11/14/24 20:50 Temperature Pulse Rate 116 H 110 H Respiratory Rate 24 26 H Blood Pressure 98/53 L Pulse Oximetry 92 92 Oxygen Delivery Method Nasal Cannula Nasal Cannula Oxygen Flow Rate 2 2 Fraction of Inspired Oxygen 11/14/24 20:50 11/14/24 20:55 11/14/24 20:55 Temperature Pulse Rate 106 H Respiratory Rate 24 Blood Pressure 101/55 L 105/57 L Pulse Oximetry 92 Oxygen Delivery Method Nasal Cannula Oxygen Flow Rate 2 Fraction of Inspired Oxygen 11/14/24 21:00 11/14/24 21:00 11/14/24 21:05 Temperature Pulse Rate 111 H 111 H Respiratory Rate 42 H 40 H Blood Pressure 116/55 L Pulse Oximetry 92 92 Oxygen Delivery Method Nasal Cannula Nasal Cannula Oxygen Flow Rate 2 2 Fraction of Inspired Oxygen 11/14/24 21:05 11/14/24 21:10 11/14/24 21:10 Temperature Pulse Rate 111 H Respiratory Rate 36 H Blood Pressure 107/51 L 95/58 L Pulse Oximetry 92 Oxygen Delivery Method Nasal Cannula Oxygen Flow Rate 2 Fraction of Inspired Oxygen 11/14/24 21:15 11/14/24 21:15 11/14/24 21:20 Temperature Pulse Rate 109 H 113 H Respiratory Rate 36 H 42 H Blood Pressure 104/56 L Pulse Oximetry 91 92 Oxygen Delivery Method Nasal Cannula Nasal Cannula Oxygen Flow Rate 2 2 Fraction of Inspired Oxygen 11/14/24 21:20 11/14/24 21:25 11/14/24 21:25 Temperature Pulse Rate 107 H Respiratory Rate 30 H Blood Pressure 107/59 L 104/59 L Pulse Oximetry 92 Oxygen Delivery Method Nasal Cannula Oxygen Flow Rate 2 Fraction of Inspired Oxygen 11/14/24 21:30 11/14/24 21:30 11/14/24 21:35 Temperature Pulse Rate 114 H Respiratory Rate 32 H Blood Pressure 104/72 93/62 Pulse Oximetry 91 Oxygen Delivery Method Nasal Cannula Oxygen Flow Rate 2 Fraction of Inspired Oxygen 11/14/24 21:35 11/14/24 21:40 11/14/24 21:40 Temperature Pulse Rate 111 H 106 H Respiratory Rate 34 H 34 H Blood Pressure 107/58 L Pulse Oximetry 90 L 92 Oxygen Delivery Method Nasal Cannula Nasal Cannula Oxygen Flow Rate 2 2 Fraction of Inspired Oxygen 11/14/24 21:45 11/14/24 21:45 11/14/24 21:50 Temperature Pulse Rate 109 H Respiratory Rate 38 H Blood Pressure 94/58 L 103/58 L Pulse Oximetry 100 Oxygen Delivery Method Nasal Cannula Oxygen Flow Rate 2 Fraction of Inspired Oxygen 11/14/24 21:50 11/14/24 21:55 11/14/24 21:55 Temperature Pulse Rate 103 H 104 H Respiratory Rate 36 H Blood Pressure 103/61 Pulse Oximetry 99 91 Oxygen Delivery Method Nasal Cannula Nasal Cannula Oxygen Flow Rate 2 2 Fraction of Inspired Oxygen 11/14/24 22:00 11/14/24 22:00 11/14/24 22:05 Temperature Pulse Rate 116 H Respiratory Rate Blood Pressure 102/57 L 100/58 L Pulse Oximetry 91 Oxygen Delivery Method Nasal Cannula Oxygen Flow Rate 2 Fraction of Inspired Oxygen 11/14/24 22:05 11/14/24 22:10 11/14/24 22:10 Temperature Pulse Rate 110 H 103 H Respiratory Rate Blood Pressure 101/55 L Pulse Oximetry 92 92 Oxygen Delivery Method Nasal Cannula Nasal Cannula Oxygen Flow Rate 2 2 Fraction of Inspired Oxygen 11/14/24 22:15 11/14/24 22:15 11/14/24 22:20 Temperature Pulse Rate 112 H Respiratory Rate Blood Pressure 98/58 L 109/57 L Pulse Oximetry 90 L Oxygen Delivery Method Nasal Cannula Oxygen Flow Rate 2 Fraction of Inspired Oxygen 11/14/24 22:20 11/14/24 22:25 11/14/24 22:25 Temperature Pulse Rate 104 H 110 H Respiratory Rate 28 H 24 Blood Pressure 115/58 L Pulse Oximetry 91 91 Oxygen Delivery Method Nasal Cannula Nasal Cannula Oxygen Flow Rate 2 2 Fraction of Inspired Oxygen 11/14/24 22:30 11/14/24 22:30 11/14/24 22:30 Temperature Pulse Rate 101 H 101 H Respiratory Rate 32 H 38 H Blood Pressure 100/62 Pulse Oximetry 92 92 Oxygen Delivery Method Nasal Cannula Nasal Cannula Oxygen Flow Rate 2 2 Fraction of Inspired Oxygen 11/14/24 22:36 11/14/24 22:36 11/14/24 23:10 Temperature 98.1 F Pulse Rate 113 H 104 H Respiratory Rate 36 H 37 H Blood Pressure 94/71 89/50 L Pulse Oximetry 92 92 Oxygen Delivery Method Oximask Oxygen Flow Rate 4 4.5 Fraction of Inspired Oxygen 11/15/24 00:00 11/15/24 00:05 11/15/24 00:32 Temperature Pulse Rate Respiratory Rate 32 H Blood Pressure 86/59 L Pulse Oximetry 94 Oxygen Delivery Method Oximask Oxygen Flow Rate Fraction of Inspired Oxygen 11/15/24 00:34 Temperature Pulse Rate Respiratory Rate Blood Pressure Pulse Oximetry 94 Oxygen Delivery Method Oxygen Flow Rate Fraction of Inspired Oxygen 52 Fraction of Inspired Oxygen 52 Oxygen Delivery Method Oximask Oxygen Flow Rate 4.5 Const Other: Physical Exam: A and O x 3, has HFNC on , able to speak in complete sentences AT/ NC head EOMI, PERRL Non icteric sclerae and Normal conjunctivae Neck : supple , No JVD, No TMG , No Cervical Lymph adenopathy Chest : Coarse BS bilat, Occasional Exp Wheezing , no crackles. BS present bilat, Diminshed BS at bases. Heart: Irregularly Irregular Rhythm, No M/G/R Abd: soft mild Tender LLQ, no HSM, no Flank Tenderness. BS present and WNL Ext : no Edema, No Calf Tenderness bilat , pp 2 + bilat Symmetric Neuro : Non focal Objective Labs 11/15/24 04:43 11/15/24 04:43 Labs: Laboratory Results - last 24 hr 11/14/24 11/14/24 11/14/24 14:11 17:26 18:01 WBC 10.9 RBC 4.95 Hgb 15.9 Hct 45.2 MCV 91.3 MCH 32.1 MCHC 35.1 RDW 12.6 Plt Count 201 Neut % (Auto) 90.8 H Lymph % (Auto) 3.4 L [place] % (Auto) 5.3 Eos % (Auto) 0.2 L Baso % (Auto) 0.3 Neut # (Auto) 9900 H Lymph # (Auto) 400 L [place] # (Auto) 600 Eos # (Auto) 0 Baso # (Auto) 0 PT 20.6 H INR 1.8 H APTT 35 D-Dimer ABG Sample Site ABG pH ABG pCO2 ABG pO2 ABG HCO3 ABG Total CO2 ABG O2 Saturation ABG Base Excess Killian Test VBG pH VBG pCO2 VBG pO2 VBG HCO3 VBG Total CO2 VBG O2 Saturation VBG Base Excess Sodium 137 Potassium 4.0 Chloride 103 Carbon Dioxide 22 BUN 15 Creatinine 1.00 Estimated GFR > 60 BUN/Creatinine Ratio 15.0 Glucose 107 H Lactate Calcium 8.9 Magnesium 1.7 Total Bilirubin 2.2 H AST 36 ALT 30 Alkaline Phosphatase 61 Total Creatine Kinase 69 Troponin I < 0.012 < 0.012 NT-Pro-B Natriuret Pep 455 H Total Protein 7.4 Albumin 4.8 Globulin 2.6 Albumin/Globulin Ratio 1.8 Lipase 111 Procalcitonin Urine RBC None seen Urine WBC 0-1/hpf Ur Squamous Epith Cells None seen Urine Bacteria Moderate (10-30) H Urine Mucus 4+ H Ur Culture Indicated? Cult not indicated Vol Urine Centrifuged 10ml (spun) 11/14/24 11/14/24 11/14/24 19:00 20:53 22:52 WBC RBC Hgb Hct MCV MCH MCHC RDW Plt Count Neut % (Auto) Lymph % (Auto) [place] % (Auto) Eos % (Auto) Baso % (Auto) Neut # (Auto) Lymph # (Auto) [place] # (Auto) Eos # (Auto) Baso # (Auto) PT INR APTT D-Dimer 692 H ABG Sample Site ABG pH ABG pCO2 ABG pO2 ABG HCO3 ABG Total CO2 ABG O2 Saturation ABG Base Excess Killian Test VBG pH VBG pCO2 VBG pO2 VBG HCO3 VBG Total CO2 VBG O2 Saturation VBG Base Excess Sodium Potassium Chloride Carbon Dioxide BUN Creatinine Estimated GFR BUN/Creatinine Ratio Glucose Lactate 2.2 H 2.1 Calcium Magnesium Total Bilirubin AST ALT Alkaline Phosphatase Total Creatine Kinase Troponin I NT-Pro-B Natriuret Pep Total Protein Albumin Globulin Albumin/Globulin Ratio Lipase Procalcitonin 4.83 H Urine RBC Urine WBC Ur Squamous Epith Cells Urine Bacteria Urine Mucus Ur Culture Indicated? Vol Urine Centrifuged 11/14/24 11/15/24 22:58 00:27 WBC RBC Hgb Hct MCV MCH MCHC RDW Plt Count Neut % (Auto) Lymph % (Auto) [place] % (Auto) Eos % (Auto) Baso % (Auto) Neut # (Auto) Lymph # (Auto) [place] # (Auto) Eos # (Auto) Baso # (Auto) PT INR APTT D-Dimer ABG Sample Site Right radial ABG pH 7.35 ABG pCO2 40.4 ABG pO2 101 H ABG HCO3 22 L ABG Total CO2 21 L ABG O2 Saturation 98 ABG Base Excess -3.4 L Killian Test Positive VBG pH 7.34 VBG pCO2 40.0 L VBG pO2 50 H VBG HCO3 21 L VBG Total CO2 21 L VBG O2 Saturation 83 H VBG Base Excess -4.2 L Sodium Potassium Chloride Carbon Dioxide BUN Creatinine Estimated GFR BUN/Creatinine Ratio Glucose Lactate Calcium Magnesium Total Bilirubin AST ALT Alkaline Phosphatase Total Creatine Kinase Troponin I NT-Pro-B Natriuret Pep Total Protein Albumin Globulin Albumin/Globulin Ratio Lipase Procalcitonin Urine RBC Urine WBC Ur Squamous Epith Cells Urine Bacteria Urine Mucus Ur Culture Indicated? Vol Urine Centrifuged Assessment & Plan Assessment and plan (1) On rivaroxaban therapy: Status: Acute (2) Pneumonia: Qualifiers: Pneumonia type: due to unspecified organism Laterality: left Lung location: lower lobe of lung Qualified Code(s): J18.9 - Pneumonia, unspecified organism Status: Acute (3) Acute respiratory failure with hypoxia: Problem details: Sec to Left sided extensive Pneumonia Cont Pulse Ox: titrate FiO2 to keep sats at 94% Continue IV abx : Ceftriaxone IV and Doxycylcine IVF given Hypotension HFNC keeping O2 Status: Acute (4) Severe sepsis due to pneumococcus with acute organ dysfunction: Status: Acute Time-Based Coding :: [TOTAL MINUTES] spent with patient and on the chart (including review of chart, obtaining history, exam, reviewing outside data, placing orders, documenting exam and treatment plan, and counseling patient) on [DATE]. Quality VTE Deep Vein Thrombosis/Pulmonary Embolism Present on Admission: No
[2024-11-15 00:39] LABS: Adenovirus Not Detected (Not Detect); B. parapertussis Not Detected (Not Detecte); Bordetella pertussis Not Detected (Not Detect); Chlamydophila pneumoniae Not Detected (Not Detect); Coronavirus 229E Not Detected (Not Detect); Coronavirus HKU1 Not Detected (Not Detect); Coronavirus NL 63 Not Detected (Not Detect); Coronavirus OC43 Not Detected (Not Detect); Human Metapneumovirus Not Detected (Not Detect); Human Rhinovirus/Enterovirus Not Detected (Not Detect); Influenza A Not Detected (Not Detect); Influenza B Not Detected (Not Detect); Mycoplasma pneumoniae Not Detected (Not Detect); Parainfluenza Virus 1 Not Detected (Not Detect); Parainfluenza Virus 2 Not Detected (Not Detect); Parainfluenza Virus 3 Not Detected (Not Detect); Parainfluenza Virus 4 Not Detected (Not Detect); Respiratory Syncytial Virus Not Detected (Not Detect); SARS- CoV-2 Not Detected (Not Detecte)
[2024-11-15 02:28] LABS: MRSA (Nasal) PCR NOT DETECTED (Not Detect)
[2024-11-15] MEDS: RIVAROXABAN 10 MG TABLET 20 MG PO ×2 (02:51→17:56)
[2024-11-15] MEDS: LACTATED RINGERS 1,000 ML 250 ML IV (02:52)
[2024-11-15] MEDS: MORPHINE 2 MG/ML INJ IV ×4 (04:07→22:06)
[2024-11-15 05:36] LABS: Add Manual Diff / Slide Review NO; Basophils Absolute Auto 0 /uL (0-100); Basophils Percent Auto 0.2 % (0-2); Eosinophils Absolute Auto 0 /uL (0-450); Hematocrit 42.7 % (41-53); Hemoglobin 14.7 g/dL (13.5-17.5); Lymphocytes Absolute Auto 300 /uL (1100-4500); Lymphocytes Percent Auto 2.7 % (25-40); Mean Corpuscular HGB Conc 34.5 % (30-36); Mean Corpuscular Hemoglobin 31.8 PG (26-34); Mean Corpuscular Volume 92.2 fL (80-100); Monocytes Absolute Auto 500 /uL (0-900); Neutrophils Absolute Auto 10500 /uL (1500-7000); Neutrophils Percent Auto 93.1 % (50-75); Platelet Count 186 X10^3/uL (150-400); Red Blood Cell Count 4.63 X10^6/uL (4.5-5.9); Red Cell Distribution Width 12.7 % (11.6-14.8); White Blood Cell Count 11.3 X10^3/uL (4.5-11.0)
[2024-11-15 05:46] LABS: BUN Creatinine Ratio 21.5 (6-22); Blood Urea Nitrogen 29 mg/dL (9-20); Calcium 7.6 mg/dL (8.4-10.2); Carbon Dioxide 20 mmol/L (22-32); Chloride 100 mmol/L (98-107); Estimated Glomerular Filt Rate > 60 mL/min (>60); Glucose 114 mg/dL (70-100); HEMOLYSIS 18 (0-50); Sodium 130 mmol/L (137-145)
[2024-11-15 05:47] LABS: Potassium 5.5 mmol/L (3.4-5.1)
[2024-11-15] MEDS: DOXYCYCLINE 100 MG in SODIUM CHLORIDE 0.9% 100 ML IV ×2 (06:23→17:56)
--- NOTE | 2024-11-15 06:39 | PC.NURSE ---
night order selector note pt transferred from ACU via stretcher after his CTA on HHF, O2 sats >90%, SOBOE, diminished to LLL with coarse breath sounds in upper lobes, non productive cough, pt fatigued, c/o pain to chest/abd with coughing, voiding dark kristina urine in urinal, meds and labs as ordered, results reported to Dr. Albert, IV fluid bolus given, call rojas within reach and pt using appropriately, care continued
[2024-11-15 06:46] LABS: TSH w/ Reflex to FT4 1.16 uIU/mL (0.47-4.68)
[2024-11-15 07:01] LABS: Reflexed Lactate in 2 Hours Y
[2024-11-15 07:33] LABS: Lactate 2HR (Lactic Acid Rflx) 3.1 mmol/L (0.7-2.1)
--- NOTE | 2024-11-15 07:58 | DI.ECHO.S_ITS ---
[facility]+ [facility] : : [id number] : : [place] : : [id number] : : Phone: [phone] Echocardiogram Report + + :Name: JOVON JOYCE Study Date: 11/15/2024 Height: 70 in : :Hospital ReadingLocation: Weight: 180 lb : : Gender: Male BSA: 2.0 m2 : :: 1970 Age: 53 yrs BP: 115/63 mmHg: :Reason For Study: ELEVATED BNP, HYPOXIA : :Ordering Physician: ESME, : :CECILIO RENEE Performed By: Irma Lester : :Referring: CECILIO VICTORIA MD : + + Interpretation Summary The patient was in atrial fibrillation with heart rates between 96-115 bpm during the exam. The ejection fraction is estimated to be 40-45%. Septal motion is consistent with conduction abnormality. The interventricular septum is flattened, consistent with a right ventricular pressure/volume condition. The right ventricular systolic function is normal. The right ventricular systolic pressure is estimated to be at least 39 mmHg based on an estimated right atrial pressure of 15 mm Hg. The right atrium is moderately dilated. There is mild tricuspid regurgitation. There is a moderately large left-sided pleural effusion. Procedure: A two-dimensional transthoracic echocardiogram with color flow and Doppler was performed. The study quality was technically adequate. There is no prior echocardiogram noted for this patient. The patient was in atrial fibrillation with heart rates between 96-115 bpm during the exam. Left Ventricle: The left ventricle is normal in size and wall thickness. The ejection fraction is estimated to be 40-45%. Septal motion is consistent with conduction abnormality. The interventricular septum is flattened, consistent with a right ventricular pressure/volume condition. Diastolic function could not be accurately assessed due to atrial fibrillation. Right Ventricle: The right ventricle is mildly dilated. The right ventricular systolic function is normal. Atria: The left atrial size is normal. The right atrium is moderately dilated. There is no Doppler evidence for an interatrial shunt. Mitral Valve: The mitral valve leaflets appear borderline thickened, but open well. There is trace mitral regurgitation. Aortic Valve: The aortic valve is trileaflet. The aortic valve opens well. There is no aortic valve stenosis. No aortic regurgitation is present. Tricuspid Valve: The tricuspid valve leaflets are thin and pliable. There is mild tricuspid regurgitation. The right ventricular systolic pressure is estimated to be at least 39 mmHg based on an estimated right atrial pressure of 15 mm Hg. Pulmonic Valve: The pulmonic valve leaflets are thin and pliable; valve motion is normal. There is no pulmonic valvular regurgitation. Great Vessels: The aortic root is normal size. The ascending aorta could not be visualized. The IVC is dilated (diameter is greater than 2.1 cm) and it collapses less than 50% with a sniff. This suggests a high right atrial pressure of 15 mm Hg. Pericardium/ Pleura There is no pericardial effusion. There is a moderately large left-sided pleural effusion. MMode/2D Measurements & Calculations LVIDd: 4.1 cm LVOT diam: 2.0 cm LVIDs: 3.3 cm Ao root diam: 3.1 cm FS: 19.7 % IVSd: 0.98 cm LVPWd: 0.91 cm LV jean. diameter/BSA (cm/m^2): 2.1 LV sys. diameter/BSA (cm/m^2): 1.7 LA A2 area: 22.9 cm2 RA long axis: 5.2 cm LA A4 area: 16.9 cm2 RA area: 22.2 cm2 LA length (vol): 5.4 cm RA vol: 80.2 ml LA vol: 60.7 ml RA : 40.2 ml/m2 LA vol index: 30.4 ml/m2 IVC diam: 2.7 cm RVD1 (basal): 4.6 cm RVD2 (mid): 3.3 cm TAPSE: 2.0 cm Doppler Measurements & Calculations Ao V2 max: 116.5 cm/sec LVOT Max Sheldon: 97.8 cm/sec Ao V2 mean: 80.6 cm/sec LV V1 max P.8 mmHg Ao max P.3 mmHg LV V1 VTI: 12.4 cm Ao mean P.1 mmHg JA(I,D): 2.6 cm2 Ao V2 VTI: 15.2 cm JA(V,D): 2.7 cm2 sev ratio: 0.81 JA indexed to BSA (cm^2/m^2): 1.3 MV E max sheldon: 70.3 cm/sec TR max sheldon: 242.3 cm/sec MV A max sheldon: 0.48 cm/sec TR max P.5 mmHg MV E/A: 145.2 PA V2 max: 98.5 cm/sec Med Peak E' Sheldon: 19.4 cm/sec PA V2 mean: 61.0 cm/sec E/E' med: 3.6 PA mean P.8 mmHg Lat Peak E' Sheldon: 13.3 cm/sec PA pr(Accel): 45.6 mmHg E/E' lat: 5.3 E/e' average: 4.5 MV dec time: 0.15 sec SV(EVA): 39.2 ml Reading Physician:03:07 PM
--- NOTE | 2024-11-15 08:14 | P.HP_ITS ---
History of Present Illness History of Present Illness Date Patient Seen: 11/15/24 Chief complaint: Chest Pain/AFIB/SOB Narrative: From night doctor: 53 y/o M, h/o HTN, PAF, s/p Ablation, cardioversions, follows with Crystallographer, is on Chronic A/C with Xarelto, even though has no h/o DM, Stroke, CHF, and CHADSVASC Score less than 1, not on rate control med/s, presented to ED, with sudden onset of Nausea, and vomiting, non bloody , no coffee grounds. Had transient Ant Chest pain around 1:30 am early Friday morning. No radiation of CP to his arms/ shoulders, back or neck/ jaw. CP not associated with Exertion or SOB. No Light Headedness or Syncope. Denies cough, had noted chills, and CP then localized to Left lower quadrant of abd, at high intensity 10/10. He was evaluated in ED, and had elevated D dimer and mild elevated Pro BNP: 455 . CTAP : no acute pathology in abd/ Pelvis, there was a LLL Lung density noted c/w possible Pneumobia. Pt also was in A fib RVR, with Hypotension, SBP ranging between mid 80s to low 90s Was hypoxic on RA, requiring 10 L O2 via Oxymask to maintain O2 sats : 93% Troponin was negative x 2 : < 0.012 EKG : A fib VR 130, Lateral T wave inversion, no ST elevation A CTA Chest done : No PE , extensive Left sided PNA noted Had Elevated Procalcitinin and Elevated Lactate He had bl cx done, started on IVF and Ceftriaxone IV and Doxycycline. He was admitted to Hospitalist Medicine team, and was transferred to ICU for close monitoring , and put on HFNC at 50 % FiO2 , with ABG : ph 7.3/PCO2 40s, PO2 > 100 O2 titrated down to keep O2 sats at 94% S: He is still having pain with coughing and deep breathing. He is on high- flow with FiO2 0.45%. He was not tachypneic. He is mildly hypotensive, and did not receive IV fluids overnight. His repeat lactic is pending. Blood cultures were drawn. I discussed his situation in the general plan with his at the bedside. [facility] Medical History Acute respiratory failure with hypoxia Atrial fibrillation History of cardioversion Surgical History History of total right hip arthroplasty (03/09/24) Anesthesia History of cardiac radiofrequency ablation (~2021) History of hernia repair History of hand surgery Family History Father Liver failure Grandfather Hyperlipidemia Hypertension Grandmother Hyperlipidemia Hypertension Grandfather Hyperlipidemia Hypertension Grandmother Hyperlipidemia Hypertension Social History household members: spouse and children Smoking Status: Former smoker Smokeless tobacco user: snus (1 can q3 days) alcohol intake: current substance use type: does not use Meds Home Medications and Allergies Home Medications Medication Instructions Recorded Confirmed Type rivaroxaban 20 mg tablet 20 mg PO DAILY #90 tabs 10/13/24 11/14/24 Rx Allergies Allergy/AdvReac Type Severity Reaction Status Date / Time No Known Drug Allergies Allergy Verified 10/13/24 08:07 Review of Systems Review of Systems Narrative: All else reviewed and otherwise unremarkable except as noted in the history and physical. Exam Vital Signs (past 8 hours): - 11/15/24 00:32 11/15/24 00:34 11/15/24 00:42 Temperature Pulse Rate 89 Respiratory Rate 28 H Blood Pressure 86/59 L Pulse Oximetry 94 94 96 Oxygen Delivery Method Oxygen Flow Rate Fraction of Inspired Oxygen 52 11/15/24 01:07 11/15/24 01:07 11/15/24 01:08 Temperature Pulse Rate 93 H 93 H Respiratory Rate 28 H 30 H Blood Pressure 91/62 Pulse Oximetry 95 Oxygen Delivery Method Oxygen Flow Rate Fraction of Inspired Oxygen 11/15/24 01:30 11/15/24 01:30 11/15/24 01:38 Temperature Pulse Rate 91 H 86 Respiratory Rate 24 23 Blood Pressure 84/55 L 84/55 L Pulse Oximetry 90 L 92 Oxygen Delivery Method Oxygen Flow Rate Fraction of Inspired Oxygen 11/15/24 02:00 11/15/24 02:00 11/15/24 02:30 Temperature Pulse Rate 93 H 92 H Respiratory Rate 35 H 30 H Blood Pressure 88/58 L Pulse Oximetry 94 87 L Oxygen Delivery Method Oxygen Flow Rate Fraction of Inspired Oxygen 11/15/24 02:30 11/15/24 03:00 11/15/24 03:00 Temperature Pulse Rate 91 H Respiratory Rate 32 H Blood Pressure 90/55 L 81/55 L Pulse Oximetry 100 Oxygen Delivery Method Oxygen Flow Rate Fraction of Inspired Oxygen 11/15/24 03:30 11/15/24 03:30 11/15/24 04:00 Temperature Pulse Rate 93 H Respiratory Rate Blood Pressure 82/61 L 85/46 L Pulse Oximetry 99 Oxygen Delivery Method Oxygen Flow Rate Fraction of Inspired Oxygen 11/15/24 04:00 11/15/24 04:08 11/15/24 04:16 Temperature 96 F L Pulse Rate 95 H 95 H 90 Respiratory Rate 26 H 21 Blood Pressure 85/46 L Pulse Oximetry 98 98 96 Oxygen Delivery Method Oxygen Flow Rate 40 Fraction of Inspired Oxygen 50 11/15/24 04:30 11/15/24 04:30 11/15/24 05:00 Temperature Pulse Rate 98 H Respiratory Rate 36 H Blood Pressure 84/63 L 89/56 L Pulse Oximetry 97 Oxygen Delivery Method Oxygen Flow Rate Fraction of Inspired Oxygen 11/15/24 05:00 11/15/24 05:30 11/15/24 05:30 Temperature Pulse Rate 94 H 97 H Respiratory Rate 27 H 39 H Blood Pressure 89/60 L Pulse Oximetry 97 96 Oxygen Delivery Method Oxygen Flow Rate Fraction of Inspired Oxygen 11/15/24 06:00 11/15/24 06:00 11/15/24 06:29 Temperature Pulse Rate 99 H 96 H Respiratory Rate 39 H 26 H Blood Pressure 86/56 L Pulse Oximetry 97 96 Oxygen Delivery Method Oxygen Flow Rate Fraction of Inspired Oxygen 11/15/24 06:30 11/15/24 08:00 Temperature Pulse Rate Respiratory Rate Blood Pressure 87/60 L Pulse Oximetry Oxygen Delivery Method Heated High Flow Oxygen Flow Rate Fraction of Inspired Oxygen Fraction of Inspired Oxygen 50 Oxygen Delivery Method Heated High Flow Oxygen Flow Rate 40 Narrative Exam Narrative: NAD, alert and oriented, fluent speech, calm. On high-flow oxygen breathing comfortably with an FiO2 0.45%. Normocephalic skull, EOMI, anicteric sclera, symmetric pupils. Oropharynx unremarkable, no droop. Neck supple, midline trachea, no adenopathy. Lungs clear, normal rate and effort. Heart regular, no murmur gallop or rub. Abdomen is soft, non distended and non tender. Extremities are free of edema. Skin is free of rash or lesions. Joints are not swollen or deformed. Judgment appears to be normal. Objective ECG Impression: Atrial fibrillation with rapid ventricular response Septal infarct , age undetermined ST & T wave abnormality, consider lateral ischemia Imaging Multiple studies: : Radiologist's impression: CXR: Left perihilar consolidation suspicious for pneumonia. No pleural effusions. Consider future imaging surveillance to assess for resolution. Mild cardiomegaly. Degenerative osseous changes. CTA: No pulmonary embolus. Small left pleural effusion. Large consolidative opacity in the left lower lobe concerning for pneumonia. Recommend follow-up CT chest in 3 months to ensure resolution and exclude underlying neoplasm. Small consolidative opacity at the right base versus atelectasis. CTAP: No significant acute intra-abdominal abnormality is seen. Normal appendix. Negative for diverticulitis. There is poorly defined left lower lobe infiltrate. 2 cm likely hyperdense cyst at the superior pole of the right kidney. - Further workup is recommended, beginning with a dedicated renal ultrasound. Additional findings: Right hip arthroplasty hardware Low-density right adrenal nodule seen, which is regarded to be benign Labs 11/15/24 04:43 11/15/24 04:43 Labs: Laboratory Results - last 24 hr 11/14/24 11/14/24 11/14/24 14:11 17:26 18:01 WBC 10.9 RBC 4.95 Hgb 15.9 Hct 45.2 MCV 91.3 MCH 32.1 MCHC 35.1 RDW 12.6 Plt Count 201 Neut % (Auto) 90.8 H Lymph % (Auto) 3.4 L [place] % (Auto) 5.3 Eos % (Auto) 0.2 L Baso % (Auto) 0.3 Neut # (Auto) 9900 H Lymph # (Auto) 400 L [place] # (Auto) 600 Eos # (Auto) 0 Baso # (Auto) 0 PT 20.6 H INR 1.8 H APTT 35 D-Dimer ABG Sample Site ABG pH ABG pCO2 ABG pO2 ABG HCO3 ABG Total CO2 ABG O2 Saturation ABG Base Excess Killian Test VBG pH VBG pCO2 VBG pO2 VBG HCO3 VBG Total CO2 VBG O2 Saturation VBG Base Excess Sodium 137 Potassium 4.0 Chloride 103 Carbon Dioxide 22 BUN 15 Creatinine 1.00 Estimated GFR > 60 BUN/Creatinine Ratio 15.0 Glucose 107 H Lactate Calcium 8.9 Magnesium 1.7 Total Bilirubin 2.2 H AST 36 ALT 30 Alkaline Phosphatase 61 Total Creatine Kinase 69 Troponin I < 0.012 < 0.012 NT-Pro-B Natriuret Pep 455 H Total Protein 7.4 Albumin 4.8 Globulin 2.6 Albumin/Globulin Ratio 1.8 Lipase 111 Procalcitonin TSH Urine RBC None seen Urine WBC 0-1/hpf Ur Squamous Epith Cells None seen Urine Bacteria Moderate (10-30) H Urine Mucus 4+ H Ur Culture Indicated? Cult not indicated Vol Urine Centrifuged 10ml (spun) Nasal Screen MRSA (PCR) Chlamy pneumoniae PCR Adenovirus (PCR) B. pertussis DNA (PCR) B.parapertussis DNA PCR Coronavirus OC43 (PCR) Coronavirus HKU1 (PCR) Coronavirus 229E (PCR) SARS-CoV-2 (PCR) Coronavirus NL63 (PCR) Human Metapneumovir PCR Influenza Type A (PCR) Influenza Type B (PCR) M. pneumoniae (PCR) Parainfluenza 1 (PCR) Parainfluenza 2 (PCR) Parainfluenza 3 (PCR) Parainfluenza 4 (PCR) RSV (PCR) Entero/Rhino (PCR) 11/14/24 11/14/24 11/14/24 19:00 20:53 22:52 WBC RBC Hgb Hct MCV MCH MCHC RDW Plt Count Neut % (Auto) Lymph % (Auto) [place] % (Auto) Eos % (Auto) Baso % (Auto) Neut # (Auto) Lymph # (Auto) [place] # (Auto) Eos # (Auto) Baso # (Auto) PT INR APTT D-Dimer 692 H ABG Sample Site ABG pH ABG pCO2 ABG pO2 ABG HCO3 ABG Total CO2 ABG O2 Saturation ABG Base Excess Killian Test VBG pH VBG pCO2 VBG pO2 VBG HCO3 VBG Total CO2 VBG O2 Saturation VBG Base Excess Sodium Potassium Chloride Carbon Dioxide BUN Creatinine Estimated GFR BUN/Creatinine Ratio Glucose Lactate 2.2 H 2.1 Calcium Magnesium Total Bilirubin AST ALT Alkaline Phosphatase Total Creatine Kinase Troponin I NT-Pro-B Natriuret Pep Total Protein Albumin Globulin Albumin/Globulin Ratio Lipase Procalcitonin 4.83 H TSH Urine RBC Urine WBC Ur Squamous Epith Cells Urine Bacteria Urine Mucus Ur Culture Indicated? Vol Urine Centrifuged Nasal Screen MRSA (PCR) Chlamy pneumoniae PCR Adenovirus (PCR) B. pertussis DNA (PCR) B.parapertussis DNA PCR Coronavirus OC43 (PCR) Coronavirus HKU1 (PCR) Coronavirus 229E (PCR) SARS-CoV-2 (PCR) Coronavirus NL63 (PCR) Human Metapneumovir PCR Influenza Type A (PCR) Influenza Type B (PCR) M. pneumoniae (PCR) Parainfluenza 1 (PCR) Parainfluenza 2 (PCR) Parainfluenza 3 (PCR) Parainfluenza 4 (PCR) RSV (PCR) Entero/Rhino (PCR) 11/14/24 11/14/24 11/15/24 22:58 23:40 00:27 WBC RBC Hgb Hct MCV MCH MCHC RDW Plt Count Neut % (Auto) Lymph % (Auto) [place] % (Auto) Eos % (Auto) Baso % (Auto) Neut # (Auto) Lymph # (Auto) [place] # (Auto) Eos # (Auto) Baso # (Auto) PT INR APTT D-Dimer ABG Sample Site Right radial ABG pH 7.35 ABG pCO2 40.4 ABG pO2 101 H ABG HCO3 22 L ABG Total CO2 21 L ABG O2 Saturation 98 ABG Base Excess -3.4 L Killian Test Positive VBG pH 7.34 VBG pCO2 40.0 L VBG pO2 50 H VBG HCO3 21 L VBG Total CO2 21 L VBG O2 Saturation 83 H VBG Base Excess -4.2 L Sodium Potassium Chloride Carbon Dioxide BUN Creatinine Estimated GFR BUN/Creatinine Ratio Glucose Lactate Calcium Magnesium Total Bilirubin AST ALT Alkaline Phosphatase Total Creatine Kinase Troponin I NT-Pro-B Natriuret Pep Total Protein Albumin Globulin Albumin/Globulin Ratio Lipase Procalcitonin TSH Urine RBC Urine WBC Ur Squamous Epith Cells Urine Bacteria Urine Mucus Ur Culture Indicated? Vol Urine Centrifuged Nasal Screen MRSA (PCR) Chlamy pneumoniae PCR Not detected Adenovirus (PCR) Not detected B. pertussis DNA (PCR) Not detected B.parapertussis DNA PCR Not detected Coronavirus OC43 (PCR) Not detected Coronavirus HKU1 (PCR) Not detected Coronavirus 229E (PCR) Not detected SARS-CoV-2 (PCR) Not detected Coronavirus NL63 (PCR) Not detected Human Metapneumovir PCR Not detected Influenza Type A (PCR) Not detected Influenza Type B (PCR) Not detected M. pneumoniae (PCR) Not detected Parainfluenza 1 (PCR) Not detected Parainfluenza 2 (PCR) Not detected Parainfluenza 3 (PCR) Not detected Parainfluenza 4 (PCR) Not detected RSV (PCR) Not detected Entero/Rhino (PCR) Not detected 11/15/24 11/15/24 11/15/24 01:10 04:43 07:08 WBC 11.3 H RBC 4.63 Hgb 14.7 Hct 42.7 MCV 92.2 MCH 31.8 MCHC 34.5 RDW 12.7 Plt Count 186 Neut % (Auto) 93.1 H Lymph % (Auto) 2.7 L [place] % (Auto) 4.0 Eos % (Auto) 0.0 L Baso % (Auto) 0.2 Neut # (Auto) 56251 H Lymph # (Auto) 300 L [place] # (Auto) 500 Eos # (Auto) 0 Baso # (Auto) 0 PT INR APTT D-Dimer ABG Sample Site ABG pH ABG pCO2 ABG pO2 ABG HCO3 ABG Total CO2 ABG O2 Saturation ABG Base Excess Killian Test VBG pH VBG pCO2 VBG pO2 VBG HCO3 VBG Total CO2 VBG O2 Saturation VBG Base Excess Sodium 130 L Potassium 5.5 H D Chloride 100 Carbon Dioxide 20 L BUN 29 H Creatinine 1.35 H Estimated GFR > 60 BUN/Creatinine Ratio 21.5 Glucose 114 H Lactate 3.0 H 3.1 H Calcium 7.6 L Magnesium Total Bilirubin AST ALT Alkaline Phosphatase Total Creatine Kinase Troponin I NT-Pro-B Natriuret Pep Total Protein Albumin Globulin Albumin/Globulin Ratio Lipase Procalcitonin TSH 1.16 Urine RBC Urine WBC Ur Squamous Epith Cells Urine Bacteria Urine Mucus Ur Culture Indicated? Vol Urine Centrifuged Nasal Screen MRSA (PCR) Not detected Chlamy pneumoniae PCR Adenovirus (PCR) B. pertussis DNA (PCR) B.parapertussis DNA PCR Coronavirus OC43 (PCR) Coronavirus HKU1 (PCR) Coronavirus 229E (PCR) SARS-CoV-2 (PCR) Coronavirus NL63 (PCR) Human Metapneumovir PCR Influenza Type A (PCR) Influenza Type B (PCR) M. pneumoniae (PCR) Parainfluenza 1 (PCR) Parainfluenza 2 (PCR) Parainfluenza 3 (PCR) Parainfluenza 4 (PCR) RSV (PCR) Entero/Rhino (PCR) Assessment & Plan Assessment & Plan narrative: Active problems: 1. Community-acquired pneumonia, present on admission and active. 2. Acute hypoxic respiratory failure, present on admission and active. 3. Atrial fibrillation on chronic anticoagulation, present on admission and active. PLAN: -continue antibiotics with ceftriaxone and azithromycin. -follow up blood cultures. -IV fluids with saline at 100. -monitor blood pressure. -trend lactic acid. -support with high-flow, wean O2 as able. Full resuscitation. Lives in [place], with . is proxy decision maker. Anticipate 2 midnights of hospital services being necessary, supports inpatient status. JODIE is November 17. Time-Based Coding :: 35 min spent with patient and on the chart (including review of chart, obtaining history, exam, reviewing outside data, placing orders, documenting exam and treatment plan, and counseling patient) on 11/15. Quality VTE Deep Vein Thrombosis/Pulmonary Embolism Present on Admission: No MIPS - Admit I confirm the patient?s Advance Care Plan is present, Code status is documented, Surrogate decision maker is in patient?s record [If Yes, STOP here]: Yes The patient?s Advance Care plan is not present because I confirmed today that the patient does not wish or was not able to name a surrogate decision maker or provide an Advance Care Plan.: Yes MIPS - Meds 'Current medications' to include all prescriptions, [id number] products, herbals, cannabis/cannabidiol products, and vitamin/mineral/dietary (nutritional) supplements. I have utilized all available resources to obtain, update, or review the patient?s current medications. [If Yes, STOP here]: Yes
[2024-11-15] MEDS: OXYCODONE IR 5 MG TABLET PO ×3 (08:43→17:55)
[2024-11-15] MEDS: SODIUM CHLORIDE 0.9% FLUSH 10 ML IV (08:44)
[2024-11-15] MEDS: SODIUM CHLORIDE 0.9% 1,000 ML 100 ML IV ×2 (08:44→19:02)
[2024-11-15 10:01] LABS: Lactate (Lactic Acid) 2.9 mmol/L (0.7-2.1)
[2024-11-15 11:23] LABS: Reflexed Lactate in 2 Hours Y
[2024-11-15 12:07] LABS: Lactate 2HR (Lactic Acid Rflx) 3.3 mmol/L (0.7-2.1)
[2024-11-15] MEDS: IBUPROFEN 400 MG TABLET PO ×2 (12:52→17:56)
[2024-11-15] MEDS: SODIUM CHLORIDE 0.9% 1,000 ML 1000 ML IV (12:53)
[2024-11-15] MEDS: ACETAMINOPHEN 325 MG TABLET 650 MG PO ×2 (12:53→17:55)
--- NOTE | 2024-11-15 15:16 | CM.DANOTE ---
Addendum entered by NEISHA Marin 11/15/24 15:42: received VM from [place] with pt's [employer] [facility] ([phone]) offered DCP Assistance if needed. LENNY Original Note: DCP Assessment note pt is a 53yo M admitted with pneumonia/respiratory failure. PCP Dr. Yong Infante MSW reviewed EMR. per chart review, on heated high flow at the moment. lives in [place] with spouse, indep at baseline. Per provider, no anticipated CM needs likely. PRACTICE PHYSICIAN met with pt and spouse in room. pt talkative, loopy per due to pain medications. Pt reports his father just this morning, had cancer so it was expected just happened quicker than previously thought it would. pt denies wanting yuridia services but would be interested in therapy dogs. pt/spouse deny any DCP needs at this time. will ask for work excuse letter if needed PRACTICE PHYSICIAN called volunteer therapy dogs, they plan to meet with pt tomorrow if possible. P: anticipate dc home with spouse support when medically stable. no CM needs anticipated, except for maybe work letter. CM team will continue to follow as needed NEISHA Marin Discharge Planning/Care Management CM Discharge Assessment Start: 11/15/24 15:15 Freq: Status: Active Protocol: Document 11/15/24 15:15 (Rec: 11/15/24 15:16 [id number]) Discharge Planning Assessment Assigned Direct Chill Casting Operator NEISHA Vickers DPOA/Assigned Designee Name Lori, spoouse Contact Information [phone] Advance Directives? No History Provided By Patient,Significant Other Prior Living Arrangements House Household Members spouse,children Type of transporation used prior to Drives own vehicle admit Independent with ADL's Yes Is patient alert and oriented? Yes Discharge Plan Home Referrals Initiated None needed Whiteboard Updated in Patient Room with Yes name and ext. # of Direct Chill Casting Operator Review Status In Process Please Provide Date Initial DC 11/15/24 Assessment Was Performed Next Review Type Continued Stay Review
[2024-11-15 17:04] LABS: BUN Creatinine Ratio 28.6 (6-22); Blood Urea Nitrogen 36 mg/dL (9-20); Calcium 7.4 mg/dL (8.4-10.2); Carbon Dioxide 22 mmol/L (22-32); Chloride 99 mmol/L (98-107); Estimated Glomerular Filt Rate > 60 mL/min (>60); Glucose 112 mg/dL (70-100); HEMOLYSIS < 15 (0-50); Lactate (Lactic Acid) 2.2 mmol/L (0.7-2.1); Potassium 4.8 mmol/L (3.4-5.1); Sodium 129 mmol/L (137-145)
[2024-11-15 18:23] LABS: Reflexed Lactate in 2 Hours Y
[2024-11-15 19:29] LABS: Lactate 2HR (Lactic Acid Rflx) 2.7 mmol/L (0.7-2.1)
[2024-11-15 22:49] LABS: Lactate (Lactic Acid) 1.4 mmol/L (0.7-2.1)
[2024-11-16] VITALS (136 sets, daily range): BP systolic 90–125; BP diastolic 53–68; PULSE 82–155; RESP 13–44; TEMP 36–36.7; O2SAT 89–98
[2024-11-16] MEDS: OXYCODONE IR 5 MG TABLET PO ×3 (02:04→18:24)
[2024-11-16] MEDS: ACETAMINOPHEN 325 MG TABLET 650 MG PO ×3 (02:04→18:23)
[2024-11-16] MEDS: IBUPROFEN 400 MG TABLET PO ×3 (02:04→20:22)
[2024-11-16] MEDS: SODIUM CHLORIDE 0.9% 1,000 ML 100 ML IV ×2 (05:00→15:29)
[2024-11-16] MEDS: DOXYCYCLINE 100 MG in SODIUM CHLORIDE 0.9% 100 ML IV ×2 (05:52→18:22)
--- NOTE | 2024-11-16 07:15 | P.PN_ITS ---
Subjective Subjective Interval history: S: He feels better today, his pleuritic chest pain is nearly resolved with ibuprofen. He was still on high-flow at 45%. He does not have labored breathing in his eating breakfast. Exam Vital Signs (past 8 hours): - 11/16/24 00:00 11/16/24 02:48 11/16/24 04:00 Temperature 97.2 F L 97.1 F L Pulse Rate 103 H 93 H 108 H Respiratory Rate 21 18 23 Blood Pressure 90/53 L 105/63 Pulse Oximetry 95 94 95 Oxygen Flow Rate 40 40 Fraction of Inspired Oxygen 45 45 11/16/24 05:59 Temperature Pulse Rate 93 H Respiratory Rate 13 Blood Pressure Pulse Oximetry 96 Oxygen Flow Rate Fraction of Inspired Oxygen Fraction of Inspired Oxygen 45 Oxygen Delivery Method Heated High Flow Oxygen Flow Rate 40 Narrative Exam Narrative: NAD, alert and oriented. Fluent speech. High-flow oxygen 45%. Lungs are clear, normal rate and effort. Heart is regular, no murmur gallop or rub. Abdomen is soft, non distended. Extremities are free of edema. Objective Labs 11/15/24 04:43 11/15/24 16:39 Labs: Laboratory Results - last 24 hr 11/15/24 11/15/24 11/15/24 07:08 08:59 11:35 Sodium Potassium Chloride Carbon Dioxide BUN Creatinine Estimated GFR BUN/Creatinine Ratio Glucose Lactate 3.1 H 2.9 H 3.3 H Calcium 11/15/24 11/15/24 11/15/24 16:39 18:45 22:32 Sodium 129 L Potassium 4.8 Chloride 99 Carbon Dioxide 22 BUN 36 H Creatinine 1.26 H Estimated GFR > 60 BUN/Creatinine Ratio 28.6 H Glucose 112 H Lactate 2.2 H 2.7 H 1.4 Calcium 7.4 L [facility] Medical History Acute respiratory failure with hypoxia Atrial fibrillation History of cardioversion Surgical History History of total right hip arthroplasty (03/09/24) Anesthesia History of cardiac radiofrequency ablation (~2021) History of hernia repair History of hand surgery Family History Father Liver failure Grandfather Hyperlipidemia Hypertension Grandmother Hyperlipidemia Hypertension Grandfather Hyperlipidemia Hypertension Grandmother Hyperlipidemia Hypertension Social History household members: spouse and children Smoking Status: Former smoker Smokeless tobacco user: snus (1 can q3 days) alcohol intake: current substance use type: does not use Assessment & Plan Assessment & Plan narrative: 1. Community-acquired pneumonia, present on admission and active. 2. Acute hypoxic respiratory failure, present on admission and active. 3. Atrial fibrillation on chronic anticoagulation, present on admission and active. 4. Sepsis secondary to pneumonia with hypoxia, lactic acidosis, and tachycardia. This is improved. 5. Lactic acidosis, present on admission and resolved. PLAN: -continue antibiotics with ceftriaxone and azithromycin. -follow up blood cultures. Still pending as his sputum. -IV fluids with saline at 100. -monitor blood pressure. -repeat labs to trend sodium. -support with high-flow, wean O2 as able. Full resuscitation. Lives in [place], with . is proxy decision maker. Anticipate 2 midnights of hospital services being necessary, supports inpatient status. JODIE is October 24-. Time-Based Coding :: [TOTAL MINUTES] spent with patient and on the chart (including review of chart, obtaining history, exam, reviewing outside data, placing orders, documenting exam and treatment plan, and counseling patient) on [DATE]. Quality VTE Deep Vein Thrombosis/Pulmonary Embolism Present on Admission: No
[2024-11-16] MEDS: RIVAROXABAN 10 MG TABLET 20 MG PO (08:30)
[2024-11-16] MEDS: SODIUM CHLORIDE 0.9% FLUSH 10 ML IV ×2 (08:31→20:23)
[2024-11-16 09:03] LABS: Hemoglobin 13.1 g/dL (13.5-17.5); Mean Corpuscular HGB Conc 33.6 % (30-36); Mean Corpuscular Hemoglobin 31.3 PG (26-34); Platelet Count 136 X10^3/uL (150-400); Red Blood Cell Count 4.19 X10^6/uL (4.5-5.9); Red Cell Distribution Width 13.3 % (11.6-14.8); White Blood Cell Count 12.6 X10^3/uL (4.5-11.0)
[2024-11-16 09:14] LABS: Blood Urea Nitrogen 37 mg/dL (9-20); Calcium 8.2 mg/dL (8.4-10.2); Carbon Dioxide 24 mmol/L (22-32); Chloride 102 mmol/L (98-107); Estimated Glomerular Filt Rate > 60 mL/min (>60); Glucose 103 mg/dL (70-100); HEMOLYSIS < 15 (0-50); Potassium 4.9 mmol/L (3.4-5.1); Sodium 132 mmol/L (137-145)
[2024-11-16] MEDS: cefTRIAXone 2,000 MG in SODIUM CHLORIDE 0.9% 100 ML 200 MG IV (09:44)
[2024-11-16] MEDS: METOPROLOL IR 25 MG TABLET PO ×2 (10:16→20:22)
[2024-11-16] MEDS: METOPROLOL TARTRATE 5 MG/5 ML INJ IV (10:16)
--- NOTE | 2024-11-16 11:35 | CM.DPNOTE ---
DCP note HOUSING COUNSELOR reviewed EMR per RN report, pt still on heated high flow will continue to attempt to wean today. adding another abx now to help with the pneumonia. Per provider in morning rounds, still a few days before stable for dc (11/18-11/19). P: anticipate dc home with spouse support when medically stable. no CM needs anticipated, except for maybe work letter. CM team will continue to follow as needed NEISHA Marin
[2024-11-17] VITALS (112 sets, daily range): BP systolic 97–126; BP diastolic 57–82; PULSE 85–117; RESP 16–38; TEMP 36.1–37; O2SAT 89–97
[2024-11-17] MEDS: OXYCODONE IR 5 MG TABLET PO ×4 (02:12→18:26)
[2024-11-17] MEDS: ACETAMINOPHEN 325 MG TABLET 650 MG PO ×3 (02:13→18:25)
[2024-11-17] MEDS: SODIUM CHLORIDE 0.9% 1,000 ML 100 ML IV (02:16)
[2024-11-17] MEDS: DOXYCYCLINE 100 MG in SODIUM CHLORIDE 0.9% 100 ML IV ×2 (05:39→17:40)
--- NOTE | 2024-11-17 07:31 | PM.PN.1 ---
Subjective Subjective Interval history: Summary: 53 y/o M, h/o HTN, PAF, s/p Ablation, cardioversions, follows with [facility] [employer], is on Chronic A/C with Xarelto, even though has no h/o DM, Stroke, CHF, and CHADSVASC Score less than 1, not on rate control med/s, presented to ED, with sudden onset of Nausea, and vomiting, non bloody , no coffee grounds. Had transient Ant Chest pain around 1:30 am early Friday morning. No radiation of CP to his arms/ shoulders, back or neck/ jaw. CP not associated with Exertion or SOB. No Light Headedness or Syncope. Denies cough, had noted chills, and CP then localized to Left lower quadrant of abd, at high intensity /. He was evaluated in ED, and had elevated D dimer and mild elevated Pro BNP: 455 . CTAP : no acute pathology in abd/ Pelvis, there was a LLL Lung density noted c/w possible Pneumobia. Pt also was in A fib RVR, with Hypotension, SBP ranging between mid 80s to low 90. Was hypoxic on RA, requiring 10 L O2 via Oxymask to maintain O2 sats : 93%. Troponin was negative x 2 : < 0.012. EKG : A fib VR 130, Lateral T wave inversion, no ST elevation. A CTA Chest done : No PE , extensive Left sided PNA noted. Had Elevated Procalcitinin and Elevated Lactate. He had bl cx done, started on IVF and Ceftriaxone IV and Doxycycline. S: He was feeling better today. He was off from high-flow oxygen on nasal cannula. He was a cough which is still primarily nonproductive. His chest pain has resolved. He still has some dyspnea with talking. Exam Vital Signs (past 8 hours): - 11/17/24 00:00 11/17/24 04:00 Temperature 96.9 F L 98.3 F Pulse Rate 95 H 114 H Respiratory Rate 23 23 Blood Pressure 97/57 L 126/81 Pulse Oximetry 95 94 Oxygen Flow Rate 2 2 Fraction of Inspired Oxygen 28 SaO2/FiO2 Ratio 342 Oxygen Delivery Method Nasal Cannula Oxygen Flow Rate 2 Narrative Exam Narrative: NAD, alert and oriented. Fluent speech. Lungs are clear, normal rate and effort. Heart is regular, no murmur gallop or rub. Abdomen is soft, non distended. Extremities are free of edema. Objective ECG Impression: Atrial fibrillation with rapid ventricular response Septal infarct , age undetermined ST & T wave abnormality, consider lateral ischemia Imaging Multiple studies:: Radiologist's impression: CXR: Left perihilar consolidation suspicious for pneumonia. No pleural effusions. Consider future imaging surveillance to assess for resolution. Mild cardiomegaly. Degenerative osseous changes. CTA: No pulmonary embolus. Small left pleural effusion. Large consolidative opacity in the left lower lobe concerning for pneumonia. Recommend follow-up CT chest in 3 months to ensure resolution and exclude underlying neoplasm. Small consolidative opacity at the right base versus atelectasis. CTAP: No significant acute intra-abdominal abnormality is seen. Normal appendix. Negative for diverticulitis. There is poorly defined left lower lobe infiltrate. 2 cm likely hyperdense cyst at the superior pole of the right kidney. - Further workup is recommended, beginning with a dedicated renal ultrasound. Additional findings: Right hip arthroplasty hardware Low-density right adrenal nodule seen, which is regarded to be benign Labs 11/17/24 11:59 11/17/24 11:59 Labs: Laboratory Results - last 24 hr 11/16/24 08:55 WBC 12.6 H RBC 4.19 L Hgb 13.1 L Hct 39.0 L MCV 93.0 MCH 31.3 MCHC 33.6 RDW 13.3 Plt Count 136 L Sodium 132 L Potassium 4.9 Chloride 102 Carbon Dioxide 24 BUN 37 H Creatinine 1.12 Estimated GFR > 60 BUN/Creatinine Ratio 33.0 H Glucose 103 H Calcium 8.2 L [facility] Medical History Acute respiratory failure with hypoxia Atrial fibrillation History of cardioversion Surgical History History of total right hip arthroplasty (03/09/24) Anesthesia History of cardiac radiofrequency ablation (~2021) History of hernia repair History of hand surgery Family History Father Liver failure Grandfather Hyperlipidemia Hypertension Grandmother Hyperlipidemia Hypertension Grandfather Hyperlipidemia Hypertension Grandmother Hyperlipidemia Hypertension Social History household members: spouse and children Smoking Status: Former smoker Smokeless tobacco user: snus (1 can q3 days) alcohol intake: current substance use type: does not use Assessment & Plan Assessment & Plan narrative: 1. Community-acquired pneumonia, present on admission and improving. 2. Acute hypoxic respiratory failure, present on admission and improving. 3. Atrial fibrillation on chronic anticoagulation, present on admission and active/stable. 4. Sepsis secondary to pneumonia with hypoxia, lactic acidosis, and tachycardia. This is improved. 5. Lactic acidosis, present on admission and resolved. PLAN: -continue antibiotics with ceftriaxone and azithromycin (5 day course). -follow up blood cultures negative. -stop IVF. -monitor blood pressure. -repeat labs to trend sodium. -Wean O2 as able. Full resuscitation. Lives in [place], with . is proxy decision maker. Anticipate 2 midnights of hospital services being necessary, supports inpatient status. JODIE: 11/18-. Time-Based Coding :: [TOTAL MINUTES] spent with patient and on the chart (including review of chart, obtaining history, exam, reviewing outside data, placing orders, documenting exam and treatment plan, and counseling patient) on [DATE]. Quality VTE Deep Vein Thrombosis/Pulmonary Embolism Present on Admission: No
[2024-11-17] MEDS: RIVAROXABAN 10 MG TABLET 20 MG PO (09:02)
[2024-11-17] MEDS: cefTRIAXone 2,000 MG in SODIUM CHLORIDE 0.9% 100 ML 200 MG IV (09:04)
[2024-11-17] MEDS: METOPROLOL IR 25 MG TABLET PO ×3 (09:04→21:39)
[2024-11-17] MEDS: SODIUM CHLORIDE 0.9% FLUSH 10 ML IV ×2 (09:05→21:40)
[2024-11-17 12:05] LABS: Hematocrit 35.9 % (41-53); Hemoglobin 12.1 g/dL (13.5-17.5); Mean Corpuscular HGB Conc 33.8 % (30-36); Mean Corpuscular Hemoglobin 31.3 PG (26-34); Mean Corpuscular Volume 92.4 fL (80-100); Platelet Count 153 X10^3/uL (150-400); Red Blood Cell Count 3.88 X10^6/uL (4.5-5.9); Red Cell Distribution Width 13.1 % (11.6-14.8); White Blood Cell Count 19.5 X10^3/uL (4.5-11.0)
[2024-11-17 12:15] LABS: BUN Creatinine Ratio 21.5 (6-22); Blood Urea Nitrogen 17 mg/dL (9-20); Calcium 8.4 mg/dL (8.4-10.2); Carbon Dioxide 23 mmol/L (22-32); Chloride 106 mmol/L (98-107); Estimated Glomerular Filt Rate > 60 mL/min (>60); Glucose 100 mg/dL (70-100); HEMOLYSIS < 15 (0-50); Potassium 4.1 mmol/L (3.4-5.1); Sodium 136 mmol/L (137-145)
--- NOTE | 2024-11-17 19:01 | PC.NURSE ---
Shift note: Pt tolerated being up to the chair for several hours, breathless when up walking - tires easily. O2 per NC @ 2L Sats maintained 93-95%. Pain meds given prn for L chest pain brought on by coughing.
[2024-11-18] VITALS (34 sets, daily range): BP systolic 116–149; BP diastolic 66–92; PULSE 66–122; RESP 16–26; TEMP 36.5–37.2; O2SAT 91–99
[2024-11-18] MEDS: OXYCODONE IR 5 MG TABLET PO ×2 (02:45→13:02)
--- NOTE | 2024-11-18 03:42 | DI.RAD.S_ITS ---
PROCEDURE: XR CHEST 1V INDICATIONS: Shortness of breath TECHNIQUE: One view of the chest was acquired. COMPARISON: [facility], CT, CT ANGIO CHEST PE PROTOCOL, 11/15/2024, 0:48. [facility], CR, XR CHEST 1V, 11/14/2024, 14:16. FINDINGS: Surgical changes and devices: None. Lungs and pleura: Significant short interval worsening. Dense consolidation and atelectasis in a significant portion of the left lung with development of a moderately large pleural effusion, with an appearance suggesting possible empyema. Mediastinum: Mediastinal contours appear normal. Heart size is normal. Bones and chest wall: No suspicious bony lesions. Overlying soft tissues appear unremarkable. IMPRESSION: 1. Significant interval worsening in a left chest process with dense left-sided pneumonia and atelectasis and development of a large possible empyema. Comment: Consider CT chest with contrast to further evaluate the potential presence of empyema. Comment: Findings were discussed with Dr. Killian Lee at the time of study dictation on 11/18/2024 at 0716 hours. He will relay the message to Dr. Glez, who is caring for the patient today. Dictated by: Sp Hinds M.D. on 11/18/2024 at 7:09 Approved by: Sp Hinds M.D. on 11/18/2024 at 7:17
[2024-11-18] MEDS: DOXYCYCLINE 100 MG in SODIUM CHLORIDE 0.9% 100 ML IV ×2 (06:24→18:10)
--- NOTE | 2024-11-18 07:44 | DI.CT.S_ITS ---
PROCEDURE: CT CHEST W CON INDICATIONS: possible empyema TECHNIQUE: After the administration of intravenous contrast, 5 mm thick sections acquired from the pulmonary apices to the posterior costophrenic angles. 1 mm axial lung, 5 mm thick coronal and sagittal reformats and 7 mm axial MIP were acquired. For radiation dose reduction, the following was used: automated exposure control, adjustment of mA and/or kV according to patient size. COMPARISON: [facility], CT, CT ANGIO CHEST PE PROTOCOL, 11/15/2024, 0:48. FINDINGS: Image quality: Diagnostic. Lower Neck: No enlarged lymph nodes. Thyroid: No thyroid nodules which require sonographic follow up, per consensus guidelines. Axillae: No enlarged lymph nodes. Chest Wall: Unremarkable. Bones: Unremarkable. Lungs and Pleura: No pneumothorax or significant right-sided pleural effusions. No consolidation or suspicious nodules on the right. Left-sided dense pneumonia is again seen as was also the case on CT scanning 3 days ago. There has been interval development of a large left effusion, which shows definite pleural thickening and enhancement indicating likelihood of exudative pleural effusion and most likely empyema in this clinical circumstance. Heart: Heart size is normal. No pericardial effusion. Thoracic Vessels: The aorta and pulmonary arteries demonstrate normal size. Mediastinum and Lelia: No enlarged lymph nodes. Esophagus: No wall thickening. No hiatal hernia. Upper Abdomen: Visualized upper abdomen solid organs and bowel loops appear normal. IMPRESSION: Dense left-sided pneumonia persists. Minimal simple right pleural effusion has developed. Relatively large left-sided pleural effusion also has developed which shows mild pleural thickening and enhancement most consistent with exudative pleural effusion from empyema in this clinical circumstance. Ultrasound-guided diagnostic thoracentesis likely is warranted. Dictated by: Joe Payton M.D. on 11/18/2024 at 9:06 Approved by: Joe Payton M.D. on 11/18/2024 at 9:10
[2024-11-18 08:32] LABS: Add Manual Diff / Slide Review NO; Basophils Absolute Auto 0 /uL (0-100); Basophils Percent Auto 0.1 % (0-2); Eosinophils Absolute Auto 100 /uL (0-450); Eosinophils Percent Auto 0.5 % (2-4); Hematocrit 36.7 % (41-53); Hemoglobin 12.4 g/dL (13.5-17.5); Lymphocytes Absolute Auto 1000 /uL (1100-4500); Lymphocytes Percent Auto 6.6 % (25-40); Mean Corpuscular HGB Conc 33.7 % (30-36); Mean Corpuscular Hemoglobin 31.1 PG (26-34); Mean Corpuscular Volume 92.4 fL (80-100); Monocytes Absolute Auto 1100 /uL (0-900); Monocytes Percent Auto 6.9 % (3-14); Neutrophils Absolute Auto 13500 /uL (1500-7000); Neutrophils Percent Auto 85.9 % (50-75); Platelet Count 198 X10^3/uL (150-400); Red Blood Cell Count 3.97 X10^6/uL (4.5-5.9); Red Cell Distribution Width 13.1 % (11.6-14.8); White Blood Cell Count 15.8 X10^3/uL (4.5-11.0)
[2024-11-18 08:51] LABS: Alanine Aminotransferase 37 IU/L (<50); Albumin 3.2 g/dL (3.5-5.0); Albumin Globulin Ratio 1.2 (1.0-2.8); Alkaline Phosphatase 123 U/L (38-126); Aspartate Aminotransferase 38 IU/L (17-59); BUN Creatinine Ratio 18.6 (6-22); Bilirubin Total 0.7 mg/dL (0.2-1.3); Blood Urea Nitrogen 13 mg/dL (9-20); Calcium 8.5 mg/dL (8.4-10.2); Carbon Dioxide 25 mmol/L (22-32); Chloride 102 mmol/L (98-107); Estimated Glomerular Filt Rate > 60 mL/min (>60); Globulin 2.7 g/dL (1.7-4.1); Glucose 92 mg/dL (70-100); HEMOLYSIS < 15 (0-50); Magnesium 1.9 mg/dL (1.6-2.3); Potassium 3.7 mmol/L (3.4-5.1); Sodium 135 mmol/L (137-145); Total Protein 5.9 g/dL (6.3-8.2)
[2024-11-18] MEDS: METOPROLOL IR 25 MG TABLET PO ×3 (09:11→21:43)
[2024-11-18] MEDS: cefTRIAXone 2,000 MG in SODIUM CHLORIDE 0.9% 100 ML 200 MG IV (09:12)
--- NOTE | 2024-11-18 11:53 | CM.DPNOTE ---
DCP Cont Reviewed chart. Patient discussed in multidisciplinary rounds. Dr Key anticipates discussion with general surgery re chest tube placement vs transfer for cardiothoracic surgery. Patient lives independently with spouse in [place]; anticipate eventual discharge home w/family w/close outpatient follow up. If patient remains admitted, he may benefit from additional assessment of need. CM team following clinical course closely . JEFFERSON
[2024-11-18] MEDS: ACETAMINOPHEN 325 MG TABLET 650 MG PO (13:02)
--- NOTE | 2024-11-18 15:17 | PM.PN.1 ---
Subjective Subjective Interval history: Summary: 53 y/o M, h/o HTN, PAF, s/p Ablation on anticoagulation who was admitted with a L sided PNA, now worsening pleural effusion and pain on the L. S: Severe pain and shortness of breath today, hypoxic requiring 4L O2.WBC slightly improved today. CT chest showing probable empyema. Discussed with surgeon whom will do chest tube later today. Reported hemoptysis this afternoon. Xarelto held. Exam Vital Signs (past 8 hours): - 11/18/24 07:50 11/18/24 07:50 11/18/24 08:00 Temperature 98.9 F Pulse Rate 102 H 116 H Respiratory Rate 22 Blood Pressure 136/92 H 136/92 H Pulse Oximetry 98 97 Oxygen Flow Rate 4 11/18/24 08:13 11/18/24 09:00 11/18/24 10:00 Temperature Pulse Rate 102 H 122 H 98 H Respiratory Rate Blood Pressure Pulse Oximetry 97 97 98 Oxygen Flow Rate 11/18/24 11:00 11/18/24 11:50 11/18/24 11:50 Temperature Pulse Rate 106 H 108 H Respiratory Rate Blood Pressure 129/84 Pulse Oximetry 96 97 Oxygen Flow Rate 11/18/24 12:00 11/18/24 12:00 Temperature 98.4 F Pulse Rate 96 H 94 H Respiratory Rate 26 H Blood Pressure 129/84 Pulse Oximetry 99 96 Oxygen Flow Rate 4 Fraction of Inspired Oxygen 28 SaO2/FiO2 Ratio 342 Oxygen Delivery Method Nasal Cannula Oxygen Flow Rate 4 Narrative Exam Narrative: Gen: uncomfortable, ill appearing CV: RRR no m/r/g Pulm: Decreased breath sounds LLL Abd: S NT ND Ext: No edema Objective Labs 11/18/24 08:08 11/18/24 08:08 Labs: Laboratory Results - last 24 hr 11/18/24 08:08 WBC 15.8 H RBC 3.97 L Hgb 12.4 L Hct 36.7 L MCV 92.4 MCH 31.1 MCHC 33.7 RDW 13.1 Plt Count 198 Neut % (Auto) 85.9 H Lymph % (Auto) 6.6 L [place] % (Auto) 6.9 Eos % (Auto) 0.5 L Baso % (Auto) 0.1 Neut # (Auto) 38262 H Lymph # (Auto) 1000 L [place] # (Auto) 1100 H Eos # (Auto) 100 Baso # (Auto) 0 Sodium 135 L Potassium 3.7 Chloride 102 Carbon Dioxide 25 BUN 13 Creatinine 0.70 Estimated GFR > 60 BUN/Creatinine Ratio 18.6 Glucose 92 Calcium 8.5 Magnesium 1.9 Total Bilirubin 0.7 AST 38 ALT 37 Alkaline Phosphatase 123 D Total Protein 5.9 L Albumin 3.2 L Globulin 2.7 Albumin/Globulin Ratio 1.2 [facility] Medical History Acute respiratory failure with hypoxia Atrial fibrillation History of cardioversion Surgical History History of total right hip arthroplasty (03/09/24) Anesthesia History of cardiac radiofrequency ablation (~2021) History of hernia repair History of hand surgery Family History Father Liver failure Grandfather Hyperlipidemia Hypertension Grandmother Hyperlipidemia Hypertension Grandfather Hyperlipidemia Hypertension Grandmother Hyperlipidemia Hypertension Social History household members: spouse and children Smoking Status: Former smoker Smokeless tobacco user: snus (1 can q3 days) alcohol intake: current substance use type: does not use Assessment & Plan Assessment & Plan narrative: 1. Sepsis with acute respiratoy failure with hypoxia, CARIDAD secondary Community-acquired pneumonia with L chest empyema. - imaging showing worsening L pleural effusion, likely empyema. Given presentation, previous CT noting consolidation and accumulation of likely purulent material discussed with surgeon whom will place chest tube later this evening. - continue pain control and supplemental O2, goal O2 90-96% on therapy. - held xarelto this AM - continue ceftriaxone and doxycycline, follow up above fluid studies after chest tube placement. - WBC improving slightly today compared to yesterday, but still up since admission. Will continue to trend. - CARIDAD has resolved since admit. 2. Atrial fibrillation on chronic anticoagulation, present on admission and active/stable. - holding home xarelto given chest tube. Full resuscitation. Lives in [place], with . is proxy decision maker. Discussed with surgeon today as noted above which contributed to the above assessment and plan. Time-Based Coding :: [TOTAL MINUTES] spent with patient and on the chart (including review of chart, obtaining history, exam, reviewing outside data, placing orders, documenting exam and treatment plan, and counseling patient) on [DATE]. Quality VTE Deep Vein Thrombosis/Pulmonary Embolism Present on Admission: No
[2024-11-18] MEDS: LORazepam 2 MG/ML INJ 1 MG IV (16:39)
[2024-11-18] MEDS: HYDROMORPHONE 0.5 MG INJ 2 MG IV (16:40)
[2024-11-18] MEDS: LIDOCAINE 1% W/EPI 20ML 40 ML SUBCUT (16:55)
--- NOTE | 2024-11-18 18:06 | DI.RAD.S_ITS ---
PROCEDURE: XR CHEST 1V INDICATIONS: eval for location of chest tube and eval for pneumothorax TECHNIQUE: One view of the chest was acquired. COMPARISON: [facility], CT, CT CHEST W CON, 11/18/2024, 7:57. [facility], CR, XR CHEST 1V, 11/18/2024, 4:26. [facility], CR, XR CHEST 1V, 11/14/2024, 14:16. FINDINGS: Surgical changes and devices: Left-sided chest tube with the catheter tip in the mid left upper thorax lateral aspect. Lungs and pleura: Moderate left pleural effusion, decreased. Pulmonary vasculature engorgement. Left basilar opacity. No pneumothorax is appreciated. Blunting of the right costophrenic angle. Mediastinum: Mediastinal contours appear normal. Heart size is normal. Bones and chest wall: No suspicious bony lesions. Left subcutaneous emphysema. IMPRESSION: Left-sided chest tube. No pneumothorax. Moderate-sized left pleural effusion is decreased. Dictated by: Olegario Bowling M.D. on 11/18/2024 at 20:23 Approved by: Olegario Bowling M.D. on 11/18/2024 at 20:26
[2024-11-18] MEDS: methocarbamoL 500 MG TABLET PO ×2 (18:10→21:43)
[2024-11-18 18:17] LABS: Body Fluid Red Blood Cells 9497 /uL; Body Fluid Tot Nucleated Cells 2152 /uL
[2024-11-18 18:54] LABS: Body Fluid Appearance CLOUDY; Body Fluid Clotted? NO CLOTS PRESENT; Body Fluid Color YELLOW
[2024-11-18 18:55] LABS: Lymphocytes Body Fluid 9 %; MESO/MACRO/MONO Body Fluid 18 %; Neutrophils Body Fluid 74 %
--- NOTE | 2024-11-18 19:07 | PM.PROC.IH ---
Procedures Date/Time Date of procedure: 11/18/24 Time of procedure: 17:35 General Procedure description: This is a 53-year-old gentleman with a past medical history of AFib on anticoagulation who presented to the hospital on Friday with shortness of breath and chest pain. Patient was found to have a left pleural effusion. Patient began to have worsening leukocytosis and a repeat CT chest was performed today which demonstrated worsening of the left pleural effusion concerning for left pulmonary empyema. General surgery was consulted for a left chest tube placement. Complications: none Chest Tube Chest Tube Location: Mid-Axillary Chest Size of tube: 24 Chest tube procedure: Yes sterile drapes applied and other Tube sutured to skin: Yes Sterile dressing applied: Yes Anesthesia: 1% Lidocaine w/ Epi Volume anesthetic (ml): 40 Incision made with: other (Fifteen blade) Post procedure: sutured to skin and sterile dressing applied [place] of air heard: Yes Tube Drainage: fluid (Copious amounts of pleuritic serous fluids drain prior to insertion of chest tube.) Amount of initial drainage (ml): 700 Post procedure CXR?: Yes Patient tolerated procedure well: Yes Progress: The patient's left chest was prepped and draped in the usual sterile fashion. Prior to this a written consent was obtained. The patient was on scheduled antibiotics. We proceeded with anesthetizing the skin at the level of the nipple at the mid axillary line. This was approximately the 5th intercostal space. The cephalad and caudad rib spaces were anesthetized with 1% lidocaine using epinephrine. Using a 15 blade scalpel approximately a 2 cm incision was created above the 5th rib. This incision was carried down to the level of the intercostal fascia. With the assistance of blunt dissection as well as a 15 blade scalpel, the fascia was incised above the 5th rib. Using a Jessica clamp, the left chest was entered and a salamanca of air and fluid was identified draining from the left chest. The fluid was serous in nature, non foul-smelling and appeared to be clear in nature. Significant amount of fluid rushed out prior to the insertion of chest tube. Order to confirm the location, a finger was inserted into the patient's left chest to confirm that it was intra thoracic in nature. The 24 Mongolian chest tube was inserted into the left pleural space and twisted and pointed posteriorly and anteriorly. A proximally at 14 cm the tube was measured at the skin. The tube was secured to the skin using two 0 Ethibond sutures. The 1st suture was used to close the cephalad portion of the incision. This was left untied while a second suture was secured to the caudad portion of the incision. The two sutures were tied to them selves. Next the tails were tied around the chest tube. Xeroform vaseline gauze was applied around the chest tube. Next a Xeroform vaseline gauze, 4 x 4 gauze and a Tegaderm were applied over the chest tube. The tube was secured to the Pleuravac and no leak was identified when the patient coughed. The patient tolerated the procedure well. All needle counts were correct at the end of the case. The tube was secured to his chest wall using tape. CXR was performed and tube was in the appropriate location. [facility] Nurse Practitioner Document charge(s): No
[2024-11-18] MEDS: SODIUM CHLORIDE 0.9% FLUSH 10 ML IV (21:44)
[2024-11-19] VITALS (28 sets, daily range): BP systolic 124–141; BP diastolic 70–97; PULSE 97–130; RESP 19–32; TEMP 36.6–37.2; O2SAT 92–96
[2024-11-19] MEDS: OXYCODONE IR 5 MG TABLET PO ×5 (02:20→22:06)
--- NOTE | 2024-11-19 06:58 | PC.NURSE ---
Pt on room air this shift. 20 ml output from chest tube. Pt complains of pain with coughing, medicated with 5 mg Oxycodone per MAR. Lung sounds expiratory ronchi, much improved from beginning of shift. Cough is intermittent, wet, and productive with small amount of clear sputum. Sputum cx resulted as group A streptococcus, body fluid from pleural space was negative.
[2024-11-19] MEDS: DOXYCYCLINE 100 MG in SODIUM CHLORIDE 0.9% 100 ML IV ×2 (07:10→17:39)
[2024-11-19] MEDS: ACETAMINOPHEN 325 MG TABLET 650 MG PO ×2 (07:40→14:09)
[2024-11-19 08:27] LABS: Add Manual Diff / Slide Review NO; Basophils Absolute Auto 0 /uL (0-100); Basophils Percent Auto 0.3 % (0-2); Eosinophils Absolute Auto 200 /uL (0-450); Hematocrit 38.2 % (41-53); Hemoglobin 13.2 g/dL (13.5-17.5); Lymphocytes Absolute Auto 1300 /uL (1100-4500); Lymphocytes Percent Auto 12.4 % (25-40); Mean Corpuscular HGB Conc 34.6 % (30-36); Mean Corpuscular Hemoglobin 31.7 PG (26-34); Mean Corpuscular Volume 91.7 fL (80-100); Monocytes Absolute Auto 1100 /uL (0-900); Monocytes Percent Auto 10.5 % (3-14); Neutrophils Absolute Auto 7800 /uL (1500-7000); Neutrophils Percent Auto 74.8 % (50-75); Platelet Count 247 X10^3/uL (150-400); Red Blood Cell Count 4.17 X10^6/uL (4.5-5.9); Red Cell Distribution Width 13.4 % (11.6-14.8); White Blood Cell Count 10.5 X10^3/uL (4.5-11.0)
[2024-11-19] MEDS: methocarbamoL 500 MG TABLET PO ×3 (08:43→20:44)
[2024-11-19] MEDS: cefTRIAXone 2,000 MG in SODIUM CHLORIDE 0.9% 100 ML 200 MG IV (08:43)
[2024-11-19] MEDS: METOPROLOL IR 25 MG TABLET PO ×3 (08:43→20:47)
[2024-11-19 08:45] LABS: BUN Creatinine Ratio 21.7 (6-22); Blood Urea Nitrogen 15 mg/dL (9-20); Calcium 8.4 mg/dL (8.4-10.2); Carbon Dioxide 24 mmol/L (22-32); Chloride 102 mmol/L (98-107); Estimated Glomerular Filt Rate > 60 mL/min (>60); Glucose 101 mg/dL (70-100); HEMOLYSIS < 15 (0-50); Potassium 3.9 mmol/L (3.4-5.1); Sodium 134 mmol/L (137-145)
--- NOTE | 2024-11-19 09:08 | DI.RAD.S_ITS ---
PROCEDURE: XR CHEST 1V INDICATIONS: Eval for improvement in L pleural effusion TECHNIQUE: One view of the chest was acquired. COMPARISON: [facility], CR, XR CHEST 1V, 11/18/2024, 18:11. FINDINGS: Surgical changes and devices: Left-sided chest tube is in stable position. Overlying monitoring wires are present. Lungs and pleura: Small left-sided apical pneumothorax has recurred opacity at the left mid to lower hemithorax is relatively unchanged. Retrocardiac air bronchograms are stable. Perihilar interstitial thickening redemonstrated bilaterally. Right lung remains clear. Mediastinum: Mediastinal contours appear normal. Heart size is normal. Bones and chest wall: No suspicious bony lesions. Small amount of subcutaneous emphysema in the lateral left chest is stable. IMPRESSION: Recurrence of small left apical pneumothorax without tension. Left chest tube remains in stable position. No significant change to left retrocardiac opacity and effusion. Diffuse perihilar interstitial thickening may indicate interstitial edema. Correlate with volume status. Dictated by: Mari Aranda M.D. on 11/19/2024 at 14:12 Approved by: Mari Aranda M.D. on 11/19/2024 at 14:14
[2024-11-19] MEDS: HYDROMORPHONE 1 MG INJ IV (12:01)
--- NOTE | 2024-11-19 12:12 | CM.DPNOTE ---
DCP Continued: Reviewed EMR and team rounds for pt?s medical status. Per hospitalist, chest tube was placed by general surgery but might still consider transfer for cardiothoracic surgery. No discharge needs identified at this time. Plan: Anticipating dc home when medically stable vs. possible transfer to higher level of care. CM Team will continue to follow for coordination of discharge plans. SD Quinn
--- NOTE | 2024-11-19 14:45 | PM.PN.1 ---
Subjective Subjective Interval history: Summary: 53 y/o M, h/o HTN, PAF, s/p Ablation on anticoagulation who was admitted with a L sided PNA, now worsening pleural effusion and pain on the L s/p chest tube placement on 11/18. Today he reports much improvement, he is off oxygen. Pain is much better though still uncomfortable with the tube in place. Respiratory culture with group A strep. Fluid studies are send out and still pending at this time to help determine transudative vs exudative pathologies. On CXR there is a small but stable pneumothorax after chest tube placement. Exam Vital Signs (past 8 hours): - 11/19/24 07:00 11/19/24 07:00 11/19/24 08:00 Temperature Pulse Rate 113 H 106 H Respiratory Rate 31 H 29 H Blood Pressure Pulse Oximetry 95 94 Oxygen Delivery Method Room Air 11/19/24 08:01 11/19/24 08:01 11/19/24 11:58 Temperature Pulse Rate 110 H 115 H Respiratory Rate 32 H Blood Pressure 141/97 H Pulse Oximetry 94 95 Oxygen Delivery Method 11/19/24 11:59 11/19/24 11:59 11/19/24 12:00 Temperature Pulse Rate 114 H 112 H Respiratory Rate 31 H 27 H Blood Pressure 129/77 Pulse Oximetry 96 96 Oxygen Delivery Method 11/19/24 12:15 Temperature 98.5 F Pulse Rate Respiratory Rate Blood Pressure Pulse Oximetry Oxygen Delivery Method Fraction of Inspired Oxygen 21 SaO2/FiO2 Ratio 461 Oxygen Delivery Method Room Air Oxygen Flow Rate 4 Narrative Exam Narrative: Gen: NAD, awake and alert CV: RRR no m/r/g Pulm: Decreased breath sounds LLL, L chest tube with serosanguinous drainage in the tubing. No leak. Abd: S NT ND Ext: No edema Objective Labs 11/19/24 08:14 11/19/24 08:14 Labs: Laboratory Results - last 24 hr 11/18/24 11/19/24 17:52 08:14 WBC 10.5 RBC 4.17 L Hgb 13.2 L Hct 38.2 L MCV 91.7 MCH 31.7 MCHC 34.6 RDW 13.4 Plt Count 247 Neut % (Auto) 74.8 Lymph % (Auto) 12.4 L [place] % (Auto) 10.5 Eos % (Auto) 2.0 Baso % (Auto) 0.3 Neut # (Auto) 7800 H Lymph # (Auto) 1300 [place] # (Auto) 1100 H Eos # (Auto) 200 Baso # (Auto) 0 Sodium 134 L Potassium 3.9 Chloride 102 Carbon Dioxide 24 BUN 15 Creatinine 0.69 Estimated GFR > 60 BUN/Creatinine Ratio 21.7 Glucose 101 H Calcium 8.4 Fluid Color Yellow Fluid Appearance Cloudy Fluid RBC 9497 Fld Tot Nucleated Cell 2152 Fluid Neutrophils % 74 Fluid Lymphocytes % 9 Fluid Meso/Macro/[place] % 18 Body Fluid Clot No clots present [facility] Medical History Acute respiratory failure with hypoxia Atrial fibrillation History of cardioversion Surgical History History of total right hip arthroplasty (03/09/24) Anesthesia History of cardiac radiofrequency ablation (~2021) History of hernia repair History of hand surgery Family History Father Liver failure Grandfather Hyperlipidemia Hypertension Grandmother Hyperlipidemia Hypertension Grandfather Hyperlipidemia Hypertension Grandmother Hyperlipidemia Hypertension Social History household members: spouse and children Smoking Status: Former smoker Smokeless tobacco user: snus (1 can q3 days) alcohol intake: current substance use type: does not use Assessment & Plan Assessment & Plan narrative: 1. Sepsis with acute respiratoy failure with hypoxia, CARIDAD secondary to Community-acquired pneumonia with L chest pleural effusion (or empyema) - imaging showing worsening L pleural effusion. Given presentation, previous CT noting consolidation and accumulation of likely purulent material discussed with surgeon whom placed chest tube on 11/18. There was over 1L removed initially from his chest, 20 cc documented overnight from the tubing. Fluid analysis and studies are pending, yet to determine if exudative or transudative, but suspect exudative despite serosanguinous appearance. - small pneumothorax stable on repeat CXR today after chest tube placement. Remains on suction. - continue pain control and supplemental O2, goal O2 90-96% on therapy. - will continue to hold home xarelto for now. - continue ceftriaxone and doxycycline, follow up above fluid studies after chest tube placement. Currently with group a strep from sputum culture, though - WBC improving slightly today compared to yesterday, and is now normal. Will continue to trend. - CARIDAD has resolved since admit. - appreciate chest tube management with general surgery. 2. Atrial fibrillation on chronic anticoagulation, present on admission and active/stable. - holding home xarelto given chest tube. Full resuscitation. Lives in [place], with . is proxy decision maker. Discussed with surgeon today as noted above which contributed to the above assessment and plan. Time-Based Coding :: [TOTAL MINUTES] spent with patient and on the chart (including review of chart, obtaining history, exam, reviewing outside data, placing orders, documenting exam and treatment plan, and counseling patient) on [DATE]. Quality VTE Deep Vein Thrombosis/Pulmonary Embolism Present on Admission: No
--- NOTE | 2024-11-19 16:30 | DIET.CONS ---
Dietary Consultation Note Admission Date: 11/14/2024 22:44 Assessment: 53 y M admitted for sepsis with respiratory failure, CARIDAD, secondary to pneumonia. Dietitian screened for LOS. EMR reviewed, pt with average of 70% recorded PO intakes and getting food brought in by family. No recent weight loss. No nutritional interventions needed at this time. Will continue to monitor PO intakes. Ht: 177.8 cm Wt: 86.4 kg BMI: 25.2 UBW: 83.518 kg on 10/13/24, 79.832 kg on 03/09/24 Last BM: 11/16/24 (11/16/24 11:11) MNA: 12 Jasbir Score: 21 Diet: 11/15/24 Dinner General (Regular) Diet Diet Modifications: Food Texture: Level 7 - Regular Liquid Consistency: Level 0 - Thin Nutrition Percent Meal Consumed 75% 11/18/24 18:00 Labs: RBC 4.17 X10^6/uL (4.5-5.9) L 11/19/24 08:14 Hgb 13.2 g/dL (13.5-17.5) L 11/19/24 08:14 Hct 38.2 % (41-53) L 11/19/24 08:14 Creatinine 0.69 mg/dL (0.66-1.25) 11/19/24 08:14 Lactate 1.4 mmol/L (0.7-2.1) 11/15/24 22:32 NT-Pro-B Natriuret Pep 455 pg/mL (<125) H 11/14/24 14:11 Electronically Signed by: Bailee Cerna 11/19/24 16:30 Clinical Dietitian [address] [id number]
[2024-11-19] MEDS: IBUPROFEN 400 MG TABLET PO (17:45)
[2024-11-19] MEDS: SODIUM CHLORIDE 0.9% FLUSH 10 ML IV (20:45)
[2024-11-20] VITALS (29 sets, daily range): BP systolic 130–150; BP diastolic 75–80; PULSE 90–135; RESP 15–39; TEMP 36.6–37.1; O2SAT 93–98
[2024-11-20 03:08] LABS: Labcorp Amylase, Body Fluid 72 U/L (.); Labcorp Glucose, Body Fluid 83 mg/dL (.); Labcorp LDH, Body Fluid 1414 IU/L (.); Labcorp Total Prot, Body Fluid 3.3 g/dL (.)
[2024-11-20 03:08] LABS: Labcorp Albumin, Body Fluid 2.2 g/dL (Not Estab.)
[2024-11-20] MEDS: OXYCODONE IR 5 MG TABLET PO (03:46)
[2024-11-20] MEDS: ACETAMINOPHEN 325 MG TABLET 650 MG PO (03:47)
--- NOTE | 2024-11-20 03:57 | PM.CN.IH.1 ---
History of Present Illness Consult details Date Patient Seen: 11/18/24 Chief complaint: Chest Pain/AFIB/SOB Reason for consult: L empyema Requesting provider: Sunny Key Narrative: This is a 53 year old M who presented this past Friday with chest pain, SOB and dyspnea after having GI nausea and emesis. Patient thought he initially had a GI bug which caused him to have nausea and emsis. This progressed to overall not feeling well and progressively worsening SOB and chest pain. Due to his difficulty to breathe, patient presented to the emergency room. Patient states the chest pain is still present, non radiating and controlled with the pain medications. Endorses difficulty with SOB and dyspnea when he walks. Denies any feverss, chills, nausea, emesis, swelling of his arms or legs since admission. Meds Home Medications and Allergies Home Medications Medication Instructions Recorded Confirmed Type rivaroxaban 20 mg tablet 20 mg PO DAILY #90 tabs 10/13/24 11/14/24 Rx Allergies Allergy/AdvReac Type Severity Reaction Status Date / Time No Known Drug Allergies Allergy Verified 10/13/24 08:07 Review of Systems Review of Systems ROS: Yes All systems reviewed with the patient and are negative except as otherwise documented Eyes Eyes: Reports system reviewed and no additional complaints, except as documented Cardiovascular Cardiovascular: Reports chest pain, Reports chest pain with activity, Reports irregular heart rhythm and Reports dyspnea on exertion Respiratory Respiratory: Reports cough, Reports pain on inspiration, Reports pain with cough and Reports dyspnea on exertion Gastrointestinal Gastrointestinal: Reports nausea and Reports vomiting Neurologic Neurologic: Reports system reviewed and no additional complaints, except as documented Endocrine Endocrine: Reports system reviewed and no additional complaints, except as documented Hematologic/Lymphatic Hematologic/Lymphatic: Reports system reviewed and no additional complaints, except as documented Allergic/Immunologic Allergic/Immunologic: Reports system reviewed and no additional complaints, except as documented Exam Vital Signs (past 8 hours): - 11/19/24 20:00 11/19/24 20:00 11/19/24 20:18 Temperature 97.8 F Pulse Rate 120 H 113 H Respiratory Rate 23 29 H Blood Pressure Pulse Oximetry 94 95 Oxygen Flow Rate 0 11/19/24 20:18 11/19/24 21:00 11/19/24 22:00 Temperature Pulse Rate 112 H 130 H Respiratory Rate 24 25 H Blood Pressure 134/85 Pulse Oximetry 94 95 Oxygen Flow Rate 11/19/24 23:00 Temperature Pulse Rate 102 H Respiratory Rate 25 H Blood Pressure Pulse Oximetry 95 Oxygen Flow Rate Fraction of Inspired Oxygen 21 SaO2/FiO2 Ratio 461 Oxygen Delivery Method Room Air Oxygen Flow Rate 0 Const General: cooperative and healthy appearing Orientation: alert, awake and oriented x3 HENMT Head: normal to inspection, normocephalic and atraumatic Nose: external nose normal Eyes General: appearance normal, both eyes and all related structures Neck Neck: normal visual inspection Chest Chest: normal inspection of the chest Resp Effort & Inspection: able to speak in complete sentences, labored, respiratory distress (Mild), tachypneic and uses accessory muscles Auscultation: breath sounds absent on th left Percussion: dullness Cardio Rate: regular rate Rhythm: abnormal rhythm irregularly irregular GI Inspection: normal to inspection Palpation: soft Skin General: no rashes or lesions noted Neuro General: patient alert, patient awake and patient oriented x3 Extrem General: normal to inspection and full ROM Psych Appearance: grossly normal and well kempt Mental Status: mental status grossly normal Attitude: cooperative Thought Process: normal Objective Labs 11/19/24 08:14 11/19/24 08:14 Labs: Laboratory Results - last 24 hr 11/18/24 11/18/24 11/19/24 17:52 18:00 08:14 WBC 10.5 RBC 4.17 L Hgb 13.2 L Hct 38.2 L MCV 91.7 MCH 31.7 MCHC 34.6 RDW 13.4 Plt Count 247 Neut % (Auto) 74.8 Lymph % (Auto) 12.4 L [place] % (Auto) 10.5 Eos % (Auto) 2.0 Baso % (Auto) 0.3 Neut # (Auto) 7800 H Lymph # (Auto) 1300 [place] # (Auto) 1100 H Eos # (Auto) 200 Baso # (Auto) 0 Sodium 134 L Potassium 3.9 Chloride 102 Carbon Dioxide 24 BUN 15 Creatinine 0.69 Estimated GFR > 60 BUN/Creatinine Ratio 21.7 Glucose 101 H Calcium 8.4 Fluid Glucose 83 Fluid Total Protein 3.3 Fluid Albumin 2.2 Fluid LDH 1414 Fluid Amylase 72 PFSH Medical History Acute respiratory failure with hypoxia Atrial fibrillation History of cardioversion Surgical History History of total right hip arthroplasty (03/09/24) Anesthesia History of cardiac radiofrequency ablation (~2021) History of hernia repair History of hand surgery Family History Father Liver failure Grandfather Hyperlipidemia Hypertension Grandmother Hyperlipidemia Hypertension Grandfather Hyperlipidemia Hypertension Grandmother Hyperlipidemia Hypertension Social History household members: spouse and children Tobacco & Substance Use Smoking Status: Former smoker Smokeless tobacco user: snus (1 can q3 days) alcohol intake: current substance use type: does not use Assessment & Plan Assessment and plan (1) Severe sepsis due to pneumococcus with acute organ dysfunction: Status: Acute (2) Acute respiratory failure with hypoxia: Problem details: Sec to Left sided extensive Pneumonia Cont Pulse Ox: titrate FiO2 to keep sats at 94% Continue IV abx : Ceftriaxone IV and Doxycylcine IVF given Hypotension HFNC keeping O2 Status: Acute (3) Pneumonia: Qualifiers: Laterality: left Lung location: lower lobe of lung Pneumonia type: due to unspecified organism Qualified Code(s): J18.9 - Pneumonia, unspecified organism Status: Acute Assessment & Plan narrative: This is a 53 year old M with a history of A fib on anticoagulation who presents with mild respiratory failure secondary to a L empyema/PNA - Will place chest tube today and send off cultures from the thoracic fluid - Continue antibiotics - Will monitor for respiratory decompensation - Continue to hold anticoagulation for procedure - Continue inpatient care. Time-Based Coding :: [TOTAL MINUTES] spent with patient and on the chart (including review of chart, obtaining history, exam, reviewing outside data, placing orders, documenting exam and treatment plan, and counseling patient) on [DATE]. PROFEE Charge Codes Inpatient or Observation consultation: [id number]
[2024-11-20] MEDS: DOXYCYCLINE 100 MG in SODIUM CHLORIDE 0.9% 100 ML IV (08:40)
[2024-11-20] MEDS: cefTRIAXone 2,000 MG in SODIUM CHLORIDE 0.9% 100 ML 200 MG IV (08:44)
[2024-11-20] MEDS: SODIUM CHLORIDE 0.9% FLUSH 10 ML IV ×2 (08:48→20:07)
[2024-11-20] MEDS: METOPROLOL IR 25 MG TABLET PO ×3 (08:48→20:07)
[2024-11-20] MEDS: methocarbamoL 500 MG TABLET PO ×3 (08:48→20:07)
[2024-11-20 12:16] LABS: BUN Creatinine Ratio 16.9 (6-22); Blood Urea Nitrogen 12 mg/dL (9-20); Calcium 8.4 mg/dL (8.4-10.2); Carbon Dioxide 29 mmol/L (22-32); Chloride 102 mmol/L (98-107); Estimated Glomerular Filt Rate > 60 mL/min (>60); Glucose 100 mg/dL (70-100); HEMOLYSIS < 15 (0-50); Potassium 3.9 mmol/L (3.4-5.1); Sodium 137 mmol/L (137-145)
[2024-11-20 12:23] LABS: Hematocrit 39.9 % (41-53); Hemoglobin 13.6 g/dL (13.5-17.5); Mean Corpuscular HGB Conc 33.9 % (30-36); Mean Corpuscular Hemoglobin 31.2 PG (26-34); Mean Corpuscular Volume 91.9 fL (80-100); Platelet Count 301 X10^3/uL (150-400); Red Blood Cell Count 4.35 X10^6/uL (4.5-5.9); Red Cell Distribution Width 13.3 % (11.6-14.8); White Blood Cell Count 11.8 X10^3/uL (4.5-11.0)
[2024-11-20 12:26] LABS: Add Manual Diff / Slide Review YES
[2024-11-20 12:42] LABS: Neutrophils Absolute Manual 9204 /uL (3000-5900); Total Cells Counted 100
[2024-11-20 12:44] LABS: RBC Morphology Normal Morphology
--- NOTE | 2024-11-20 12:51 | PC.NURSE ---
Addendum entered by Jazmin Ozuna R.N. 11/20/24 16:28: 1600 MD Dhaliwal at the bedside, updating patient on plan of care and assessing chest tube. Addendum entered by Jazmin Ozuna R.N. 11/20/24 14:27: 1416 Call placed to MD Dhaliwal regarding patient chest tube clamped and not to water seal and disconnected from drainage chamber. MD stated he should have been to water seal and not clamped. Patient made aware not to interfere with medical devices. MD order to connect patient back to wall suction. Original Note: [id number] Report received from nightshift RN. Patient AAO x's 3. Able to FARIAS. Patient on room air. Denies pain, numbness and tingling. Call light within reach and bed in lowest position. 0800 Patient ambulating to restroom. 1000 Patient complaining of mild SOB. Patient sating 97%, 2L applied for comfort. 1232 Verbal update received from MD Webb. Patient chest tube transitioned to water seal. CT chest to possibly be ordered tomorrow. CXR orders today for 1500. MD aware patient on 2L NC and no longer complaining of SOB.
--- NOTE | 2024-11-20 14:29 | PM.PN.1 ---
Subjective Subjective Interval history: Summary: 53 y/o M, h/o HTN, PAF, s/p Ablation on anticoagulation who was admitted with a L sided PNA, now worsening pleural effusion and pain on the L s/p chest tube placement on 11/18. No significant pain today. Chest tube remains on suction. Respiratory culture with group A strep. Fluid studies show exudative effusion, cultures still negative. On CXR there is a small but stable pneumothorax after chest tube placement. Exam Vital Signs (past 8 hours): - 11/20/24 06:38 11/20/24 06:38 11/20/24 07:00 Temperature Pulse Rate 95 H 94 H Respiratory Rate 22 21 Blood Pressure 130/80 Pulse Oximetry 95 94 Oxygen Delivery Method Oxygen Flow Rate 11/20/24 07:00 11/20/24 08:00 11/20/24 12:00 Temperature 98.8 F Pulse Rate 95 H 117 H Respiratory Rate 20 26 H Blood Pressure 135/75 135/75 Pulse Oximetry 97 96 Oxygen Delivery Method Nasal Cannula Oxygen Flow Rate 2 2 Fraction of Inspired Oxygen 21 SaO2/FiO2 Ratio 461 Oxygen Delivery Method Nasal Cannula Oxygen Flow Rate 2 Narrative Exam Narrative: Gen: NAD, awake and alert CV: RRR no m/r/g Pulm: Decreased breath sounds LLL, L chest tube with serosanguinous drainage in the tubing. No leak. Abd: S NT ND Ext: No edema Objective Labs 11/20/24 11:56 11/20/24 11:56 Labs: Laboratory Results - last 24 hr 11/18/24 11/18/24 11/20/24 17:52 18:00 11:56 WBC 11.8 H RBC 4.35 L Hgb 13.6 Hct 39.9 L MCV 91.9 MCH 31.2 MCHC 33.9 RDW 13.3 Plt Count 301 Neut % (Auto) Not Reportable Lymph % (Auto) Not Reportable [place] % (Auto) Not Reportable Eos % (Auto) Not Reportable Baso % (Auto) Not Reportable Lymph # (Auto) Not Reportable [place] # (Auto) Not Reportable Baso # (Auto) Not Reportable Total Counted 100 Seg Neutrophils % 72.0 H Band Neutrophils % 6.0 Lymphocytes % (Manual) 13.0 L Monocytes % (Manual) 9.0 Neutrophils # (Manual) 9204 H RBC Morphology Normal morphology Sodium 137 Potassium 3.9 Chloride 102 Carbon Dioxide 29 BUN 12 Creatinine 0.71 Estimated GFR > 60 BUN/Creatinine Ratio 16.9 Glucose 100 Calcium 8.4 Fluid Glucose 83 Fluid Total Protein 3.3 Fluid Albumin 2.2 Fluid LDH 1414 Fluid Amylase 72 PFSH Medical History Acute respiratory failure with hypoxia Atrial fibrillation History of cardioversion Surgical History History of total right hip arthroplasty (03/09/24) Anesthesia History of cardiac radiofrequency ablation (~2021) History of hernia repair History of hand surgery Family History Father Liver failure Grandfather Hyperlipidemia Hypertension Grandmother Hyperlipidemia Hypertension Grandfather Hyperlipidemia Hypertension Grandmother Hyperlipidemia Hypertension Social History household members: spouse and children Smoking Status: Former smoker Smokeless tobacco user: snus (1 can q3 days) alcohol intake: current substance use type: does not use Assessment & Plan Assessment & Plan narrative: 1. Sepsis with acute respiratoy failure with hypoxia, CARIDAD secondary to Community-acquired pneumonia with L chest pleural effusion (or empyema) - imaging showing worsening L pleural effusion. Given presentation, previous CT noting consolidation and accumulation of likely purulent material discussed with surgeon whom placed chest tube on 11/18. There was over 1L removed initially from his chest, 20 cc documented overnight from the tubing. Fluid analysis shows exudative effusion with LDH of 1414. Pleural fluid Albumin was 2.2 and protein 3.3 (serum 5.9) meeting exudative criteria as well. - small pneumothorax stable on repeat CXR 11/18 after chest tube placement. Remains on suction. - continue pain control and supplemental O2, goal O2 90-96% on therapy. - continue ceftriaxone 2g q24,Currently sputum culture with group a strep from sputum culture, though pleural fluid negative. Will stop doxycycline today, 11/20. - WBC increased slightly today to 11.8. Will continue to trend. - CARIDAD has resolved since admit, cr stable at 0.7 for multiple days. - appreciate chest tube management with general surgery. Discussed with surgeon today continue chest tube to suction, will water seal either later today or tomorrow. Consider repeat CT chest tomorrow and if persistent may need transfer for thoracic surgery consultation. 2. Atrial fibrillation on chronic anticoagulation, present on admission and active/stable. - holding home xarelto given chest tube and possible need for thoracic surgery. Full resuscitation. Lives in [place], with . is proxy decision maker. Discussed with surgeon today as noted above which contributed to the above assessment and plan. Time-Based Coding :: [TOTAL MINUTES] spent with patient and on the chart (including review of chart, obtaining history, exam, reviewing outside data, placing orders, documenting exam and treatment plan, and counseling patient) on [DATE]. Quality VTE Deep Vein Thrombosis/Pulmonary Embolism Present on Admission: No
--- NOTE | 2024-11-20 15:00 | DI.RAD.S_ITS ---
PROCEDURE: XR CHEST 1V INDICATIONS: Eval for pneumothorax and resolution of L pleural effusion TECHNIQUE: One view of the chest was acquired. COMPARISON: [facility], CR, XR CHEST 1V, 11/19/2024, 9:11. [facility], CR, XR CHEST 1V, 11/18/2024, 18:11. FINDINGS: Surgical changes and devices: Left-sided chest tube in place. Lungs and pleura: Stable left-sided hydropneumothorax, moderate in size. Mediastinum: Mediastinal contours appear normal. Heart size is normal. Midline. Bones and chest wall: No suspicious bony lesions. Overlying soft tissues appear unremarkable. IMPRESSION: Stable moderate left-sided hydropneumothorax, with left-sided chest tube in place. Dictated by: Shaggy Sarkar M.D. on 11/20/2024 at 16:42 Approved by: Shaggy Sarkar M.D. on 11/20/2024 at 16:42
--- NOTE | 2024-11-20 16:18 | PM.PN.IH.1 ---
Subjective Subjective Date Patient Seen: 11/20/24 Time Patient Seen: 16:18 Interval history: Patient demonstrated worsening dyspnea overnight and required 2 L of oxygen earlier today. Patient has now been weaned off the oxygen. Patient was seen twice a day. Continues to complain of mild pain surrounding the chest tube site as well as pain with cough. Patient disconnected himself from the Pleura-vac today. The chest tube was reconnected and placed back to suction. Repeat chest x-ray has been performed which demonstrates a moderate left pneumothorax. Awaiting the official read. Exam Vital Signs (past 8 hours): - 11/20/24 12:00 Pulse Rate 117 H Respiratory Rate 26 H Blood Pressure 135/75 Pulse Oximetry 96 Oxygen Flow Rate 2 Fraction of Inspired Oxygen 21 SaO2/FiO2 Ratio 461 Oxygen Delivery Method Nasal Cannula Oxygen Flow Rate 2 Const General: cooperative, healthy appearing, comfortable and well developed Orientation: alert, awake and oriented x3 HENMT Head: normal to inspection and normocephalic Eyes General: appearance normal, both eyes and all related structures Neck Neck: normal visual inspection Chest Chest: normal inspection of the chest Resp Effort & Inspection: normal respiratory effort, able to speak in complete sentences and cough Other: Left chest tube in place on -40 mmHg of suction. Patient is on room air despite recent disconnection from the Pleur-evac. Blisters surrounding the Tegaderm noted Cardio Rate: tachycardic GI Inspection: normal to inspection and distended Palpation: soft Percussion: tympanic to percussion Skin General: no rashes or lesions noted Neuro General: patient alert, patient awake and patient oriented x3 Cognition: normal cognition Speech: speech normal Extrem General: normal to inspection Psych Appearance: grossly normal Mental Status: mental status grossly normal Objective Labs 11/20/24 11:56 11/20/24 11:56 Labs: Laboratory Results - last 24 hr 11/18/24 11/18/24 11/20/24 17:52 18:00 11:56 WBC 11.8 H RBC 4.35 L Hgb 13.6 Hct 39.9 L MCV 91.9 MCH 31.2 MCHC 33.9 RDW 13.3 Plt Count 301 Neut % (Auto) Not Reportable Lymph % (Auto) Not Reportable Ritchie % (Auto) Not Reportable Eos % (Auto) Not Reportable Baso % (Auto) Not Reportable Lymph # (Auto) Not Reportable Ritchie # (Auto) Not Reportable Baso # (Auto) Not Reportable Total Counted 100 Seg Neutrophils % 72.0 H Band Neutrophils % 6.0 Lymphocytes % (Manual) 13.0 L Monocytes % (Manual) 9.0 Neutrophils # (Manual) 9204 H RBC Morphology Normal morphology Sodium 137 Potassium 3.9 Chloride 102 Carbon Dioxide 29 BUN 12 Creatinine 0.71 Estimated GFR > 60 BUN/Creatinine Ratio 16.9 Glucose 100 Calcium 8.4 Fluid Glucose 83 Fluid Total Protein 3.3 Fluid Albumin 2.2 Fluid LDH 1414 Fluid Amylase 72 PFSH Medical History Acute respiratory failure with hypoxia Atrial fibrillation History of cardioversion Surgical History History of total right hip arthroplasty (03/09/24) Anesthesia History of cardiac radiofrequency ablation (~2021) History of hernia repair History of hand surgery Family History Father Liver failure Grandfather Hyperlipidemia Hypertension Grandmother Hyperlipidemia Hypertension Grandfather Hyperlipidemia Hypertension Grandmother Hyperlipidemia Hypertension Social History household members: spouse and children Smoking Status: Former smoker Smokeless tobacco user: snus (1 can q3 days) alcohol intake: current substance use type: does not use Assessment & Plan Assessment and plan (1) Acute respiratory failure with hypoxia: Problem details: Sec to Left sided extensive Pneumonia Cont Pulse Ox: titrate FiO2 to keep sats at 94% Continue IV abx : Ceftriaxone IV and Doxycylcine IVF given Hypotension HFNC keeping O2 Status: Acute (2) Severe sepsis due to pneumococcus with acute organ dysfunction: Status: Acute (3) Pneumothorax on left: Status: Acute Assessment & Plan narrative: This is a 53-year-old gentleman who presented to the hospital with respiratory distress secondary to a left empyema. Patient is now status post chest tube insertion on November 18, 2024. Unfortunately the patient respiratory status has started to mildly worsened over the past 24 hours. In addition to this, patient disconnected himself from his Pleura-Vac causing an increase in a left pneumothorax. Patient was counseled that this could be life-threatening disconnecting himself from the Pleura-evac. He as well as his family understood the gravity of this. Suction has only been applied to the patient's chest tube for the last hour. We will monitor closely for worsening of patient's respiratory status. Continue suction for now and repeat chest CT in the a.m. -await for patient's pneumothorax read of chest x-ray from this afternoon. Concerned for worsening of left pneumothorax -continue regular diet -continue IV antibiotics -follow-up cultures from the pleural fluid -we will plan for CT scan of chest in the a.m.. The patient continues to have a trapped lung, we will transfer to another hospital that has thoracic surgery capabilities. We discussed that patient may need an additional chest tube placed versus having surgery performed. He understands the risk of this and agrees to proceed. Time-Based Coding :: [TOTAL MINUTES] spent with patient and on the chart (including review of chart, obtaining history, exam, reviewing outside data, placing orders, documenting exam and treatment plan, and counseling patient) on [DATE]. Quality VTE Deep Vein Thrombosis/Pulmonary Embolism Present on Admission: No PROFEE [employer] Document charge(s): Yes Charge Codes Subsequent inpatient/observation care: [id number]
[2024-11-20] MEDS: ACETAMINOPHEN 325 MG TABLET 1000 MG PO (17:08)
[2024-11-20] MEDS: polyethylene glycoL 3350 17 GM POWD.PACK PO (17:08)
[2024-11-20] MEDS: HYDROMORPHONE 1 MG INJ IV (20:04)
[2024-11-20] MEDS: ENOXAPARIN 100 MG/ML SYRINGE 65 MG SUBCUT (20:04)
--- NOTE | 2024-11-20 20:30 | PC.NURSE ---
At request of day shift doctor, dressing to left chest tube site changed in sterile fashion. noted to have skin redness with a small fluid filled blister under tegaderm. Patient at the time stated he did not notice any discomfort. Old dressing removed, site cleansed with CHG, skin protectant wiped over area, less adhesive tape added to border area, xeroform gauze wrapped around insertion site, and new tagaderm added over whole site with edges now resting on tape instead of directly on skin. Patient stated he didn't notice that the area was painful until dressing was changed and pain had been reduced. Will continue to monitor site per protocol.
[2024-11-21] VITALS (29 sets, daily range): BP systolic 123–143; BP diastolic 78–95; PULSE 94–121; RESP 18–34; TEMP 36.5–37.2; O2SAT 93–98
--- NOTE | 2024-11-21 08:00 | DI.CT.S_ITS ---
PROCEDURE: CT CHEST without contrast6 INDICATIONS: Evaluate for left empyema. TECHNIQUE: Helical axial CT of the chest were obtained without contrast and reformatted in multiple planes. Patient was scanned both supine and prone. For radiation dose reduction, the following was used: automated exposure control, adjustment of mA and/or kV according to patient size. COMPARISON: [facility], CT, CT ANGIO CHEST PE PROTOCOL, 11/15/2024, 0:48. FINDINGS: Image quality: Diagnostic. Lower Neck: No enlarged lymph nodes. Thyroid: No thyroid nodules which require sonographic follow up, per consensus guidelines. Axillae: No enlarged lymph nodes. Chest Wall: Unremarkable. Bones: Unremarkable. Lungs and Pleura: Left-sided chest tube terminates in the upper 3rd posterior pleural space, but does not extend into the pneumothorax. Moderate left pleural effusion and left lower lobe atelectasis/consolidation. Apical pneumothorax with air-fluid level noted. Right upper lobe pulmonary infiltrate Heart: Heart size is normal. No pericardial effusion. Thoracic Vessels: The aorta and pulmonary arteries demonstrate normal size. Mediastinum and Lelia: No enlarged lymph nodes. Esophagus: No wall thickening. No hiatal hernia. Upper Abdomen: 1.5 cm adrenal nodule with peripheral calcification. IMPRESSION: Left-sided chest tube, pleural effusion and apical pneumothorax with air-fluid level. Chest tube is appropriately positioned, but stops short of thoracic apex Small multifocal right-sided pulmonary infiltrates. Right adrenal nodule, stable Approved by: Gregory Alvarez M.D. on 11/21/2024 at 11:19
[2024-11-21] MEDS: ENOXAPARIN 100 MG/ML SYRINGE 65 MG SUBCUT (08:15)
[2024-11-21] MEDS: polyethylene glycoL 3350 17 GM POWD.PACK PO (08:15)
[2024-11-21] MEDS: ACETAMINOPHEN 325 MG TABLET 1000 MG PO ×2 (08:15→16:46)
[2024-11-21] MEDS: SODIUM CHLORIDE 0.9% FLUSH 10 ML IV ×2 (08:18→13:21)
[2024-11-21] MEDS: methocarbamoL 500 MG TABLET PO ×3 (08:18→20:14)
[2024-11-21] MEDS: METOPROLOL IR 25 MG TABLET PO ×3 (08:18→20:14)
[2024-11-21] MEDS: cefTRIAXone 2,000 MG in SODIUM CHLORIDE 0.9% 100 ML 200 MG IV (08:34)
--- NOTE | 2024-11-21 09:47 | PC.NURSE ---
Addendum entered by Bella Grullon R.N. 11/21/24 10:06: Pt back to room at approximately 1000, reattached to monitoring equipment. remains on RA, 96%. Original Note: Pt A&Ox4, ambulating in room SBA. Vitals WDL, 97% on RA, denies SOB, pain 1/10 in L rib cage and chest. Tolerating meal. Pt wheeled to CT by RODRIGO Shah at 0940.
--- NOTE | 2024-11-21 10:14 | PM.PN.IH.1 ---
Subjective Subjective Date Patient Seen: 11/21/24 Time Patient Seen: 12:02 Interval history: No acute events overnight. Patient feels well today. Patient disconnected himself and caused a pneumothorax. Chest x-ray confirmed left hydropneumothorax. CT chest performed today demonstrated moderate hydro pneumothorax and likely trapped lung. Still awaiting the official read. Exam Vital Signs (past 8 hours): - 11/21/24 08:00 11/21/24 08:46 11/21/24 08:56 Temperature 98.2 F Pulse Rate 115 H Respiratory Rate 25 H Blood Pressure 123/95 H Pulse Oximetry 97 95 Oxygen Delivery Method Room Air Oxygen Flow Rate 0 2 Fraction of Inspired Oxygen 21 SaO2/FiO2 Ratio 461 Oxygen Delivery Method Room Air Oxygen Flow Rate 2 Const General: cooperative, healthy appearing, comfortable and well developed Nutritional Appearance: average body habitus Orientation: alert, awake and oriented x3 HENMT Head: normal to inspection and normocephalic Eyes General: appearance normal, both eyes and all related structures Neck Neck: normal visual inspection Chest Chest: abnormal inspection of the chest (Small amount of blisters surrounding the Tegaderm over the left chest tube) and tenderness (Mild tenderness surrounding the left chest tube) Other: Left chest tube in place connected to Pleur-evac and suction at negative 20 mmHg. No air leak identified. Approximately 17 50 mL in the Pleur-evac Resp Effort & Inspection: normal respiratory effort, able to speak in complete sentences and not labored Auscultation: bronchial breath sounds on the left and diminished lung sounds on the left GI Inspection: normal to inspection and distended Palpation: soft, No rigid and No tender Back/Spine/Pelvis Back: normal to inspection Skin General: other (Small amount of blisters near the left chest tube) Neuro General: patient alert, patient awake and patient oriented x3 Cognition: normal cognition Speech: speech normal Gait: normal gait Extrem General: normal to inspection Psych Appearance: grossly normal and well kempt Mental Status: mental status grossly normal Speech and Movement: speech and movement normal Objective Labs 11/20/24 11:56 11/20/24 11:56 Labs: Laboratory Results - last 24 hr 11/20/24 11:56 WBC 11.8 H RBC 4.35 L Hgb 13.6 Hct 39.9 L MCV 91.9 MCH 31.2 MCHC 33.9 RDW 13.3 Plt Count 301 Neut % (Auto) Not Reportable Lymph % (Auto) Not Reportable Coleman % (Auto) Not Reportable Eos % (Auto) Not Reportable Baso % (Auto) Not Reportable Lymph # (Auto) Not Reportable Coleman # (Auto) Not Reportable Baso # (Auto) Not Reportable Total Counted 100 Seg Neutrophils % 72.0 H Band Neutrophils % 6.0 Lymphocytes % (Manual) 13.0 L Monocytes % (Manual) 9.0 Neutrophils # (Manual) 9204 H RBC Morphology Normal morphology Sodium 137 Potassium 3.9 Chloride 102 Carbon Dioxide 29 BUN 12 Creatinine 0.71 Estimated GFR > 60 BUN/Creatinine Ratio 16.9 Glucose 100 Calcium 8.4 PFSH Medical History Acute respiratory failure with hypoxia Atrial fibrillation History of cardioversion Surgical History History of total right hip arthroplasty (03/09/24) Anesthesia History of cardiac radiofrequency ablation (~2021) History of hernia repair History of hand surgery Family History Father Liver failure Grandfather Hyperlipidemia Hypertension Grandmother Hyperlipidemia Hypertension Grandfather Hyperlipidemia Hypertension Grandmother Hyperlipidemia Hypertension Social History household members: spouse and children Smoking Status: Former smoker Smokeless tobacco user: snus (1 can q3 days) alcohol intake: current substance use type: does not use Assessment & Plan Assessment and plan (1) Pneumothorax on left: Status: Acute (2) Severe sepsis due to pneumococcus with acute organ dysfunction: Status: Acute (3) Atrial fibrillation: Problem details: PAF Continue Ch A/C with Xarelto Echo Qualifiers: Atrial fibrillation type: unspecified Qualified Code(s): I48.91 - Unspecified atrial fibrillation Status: Acute (4) Acute respiratory failure with hypoxia: Problem details: Sec to Left sided extensive Pneumonia Cont Pulse Ox: titrate FiO2 to keep sats at 94% Continue IV abx : Ceftriaxone IV and Doxycylcine IVF given Hypotension HFNC keeping O2 Status: Acute Assessment & Plan narrative: This is a 53-year-old gentleman who presented to the hospital with respiratory distress secondary to a left empyema on 11/15/24. Patient is now status post chest tube insertion on November 18, 2024. Unfortunately the patient respiratory status has started to mildly worsened on November 20. In addition to this, patient disconnected himself from his Pleura-Vac on November 20 causing an increase in a left hydropneumothorax. Patient was counseled that this could be life-threatening disconnecting himself from the Pleura-evac. He as well as his family understood the gravity of this. -continue chest tube in place. Continue suction on chest tube. -await for CT chest to be read. Concern for left trapped lung. Recommend transfer to higher level care with thoracic surgery. Patient will likely need an additional chest tube placed and possible decortication -continue regular diet -continue IV antibiotics -follow-up cultures from the pleural fluid. Sputum cultures positive for group a strep. Pleural cultures have been negative thus far -plan of care was discussed with the patient, and daughter. They agreed to proceed with transfer. Time-Based Coding :: 20 minutes spent with patient and on the chart (including review of chart, obtaining history, exam, reviewing outside data, placing orders, documenting exam and treatment plan, and counseling patient) on 11/21/2024. Quality VTE Deep Vein Thrombosis/Pulmonary Embolism Present on Admission: No PROFEE [employer] Document charge(s): Yes Charge Codes Subsequent inpatient/observation care: [id number]
--- NOTE | 2024-11-21 12:24 | CM.DPNOTE ---
DCP note PSYCH ARNP reviewed EMR Per RN/hospitalist/surgeon, repeat chest CT this morning, may transfer to higher level of care for cardiothoracic surgery. Plan: Anticipating dc home when medically stable vs. possible transfer to higher level of care. CM Team will continue to follow for coordination of discharge plans. NEISHA Marin
[2024-11-21 12:46] LABS: Add Manual Diff / Slide Review NO; Basophils Absolute Auto 100 /uL (0-100); Basophils Percent Auto 1.1 % (0-2); Eosinophils Absolute Auto 100 /uL (0-450); Eosinophils Percent Auto 1.1 % (2-4); Hematocrit 38.7 % (41-53); Hemoglobin 13.3 g/dL (13.5-17.5); Lymphocytes Absolute Auto 1600 /uL (1100-4500); Lymphocytes Percent Auto 12.7 % (25-40); Mean Corpuscular HGB Conc 34.3 % (30-36); Mean Corpuscular Hemoglobin 31.3 PG (26-34); Mean Corpuscular Volume 91.2 fL (80-100); Monocytes Absolute Auto 900 /uL (0-900); Monocytes Percent Auto 7.4 % (3-14); Neutrophils Absolute Auto 9600 /uL (1500-7000); Neutrophils Percent Auto 77.7 % (50-75); Platelet Count 325 X10^3/uL (150-400); Red Blood Cell Count 4.25 X10^6/uL (4.5-5.9); Red Cell Distribution Width 13.3 % (11.6-14.8); White Blood Cell Count 12.3 X10^3/uL (4.5-11.0)
[2024-11-21 12:53] LABS: Alanine Aminotransferase 134 IU/L (<50); Albumin 3.3 g/dL (3.5-5.0); Albumin Globulin Ratio 1.1 (1.0-2.8); Alkaline Phosphatase 117 U/L (38-126); Aspartate Aminotransferase 92 IU/L (17-59); BUN Creatinine Ratio 14.3 (6-22); Bilirubin Total 0.6 mg/dL (0.2-1.3); Blood Urea Nitrogen 10 mg/dL (9-20); Calcium 8.4 mg/dL (8.4-10.2); Carbon Dioxide 28 mmol/L (22-32); Chloride 103 mmol/L (98-107); Estimated Glomerular Filt Rate > 60 mL/min (>60); Globulin 3.1 g/dL (1.7-4.1); Glucose 101 mg/dL (70-100); HEMOLYSIS < 15 (0-50); Magnesium 2.2 mg/dL (1.6-2.3); Potassium 4.5 mmol/L (3.4-5.1); Sodium 138 mmol/L (137-145); Total Protein 6.4 g/dL (6.3-8.2)
--- NOTE | 2024-11-21 13:06 | P.PN_ITS ---
Subjective Subjective Interval history: Summary: 53 y/o M, h/o HTN, PAF, s/p Ablation on anticoagulation who was admitted with a L sided PNA, now worsening pleural effusion and pain on the L s/p chest tube placement on 11/18. No significant pain today. Chest tube remains on suction. Respiratory culture with group A strep. Fluid studies show exudative effusion, cultures still negative. On CT today there is a persistent L pleural effusion, discussed with surgery whom recommended transfer for cardiothoracic surgery evaluation. Exam Vital Signs (past 8 hours): - 11/21/24 08:00 11/21/24 08:46 11/21/24 08:56 Temperature 98.2 F Pulse Rate 115 H Respiratory Rate 25 H Blood Pressure 123/95 H Pulse Oximetry 97 95 Oxygen Delivery Method Room Air Oxygen Flow Rate 0 2 11/21/24 12:00 Temperature 97.7 F Pulse Rate 100 H Respiratory Rate 25 H Blood Pressure 132/78 Pulse Oximetry 94 Oxygen Delivery Method Oxygen Flow Rate 0 Fraction of Inspired Oxygen 21 SaO2/FiO2 Ratio 461 Oxygen Delivery Method Room Air Oxygen Flow Rate 0 Narrative Exam Narrative: Gen: NAD, awake and alert CV: RRR no m/r/g Pulm: Decreased breath sounds LLL, L chest tube with serosanguinous drainage in the tubing. Abd: S NT ND Ext: No edema Objective Labs 11/21/24 12:10 11/21/24 12:10 Labs: Laboratory Results - last 24 hr 11/21/24 12:10 WBC 12.3 H RBC 4.25 L Hgb 13.3 L Hct 38.7 L MCV 91.2 MCH 31.3 MCHC 34.3 RDW 13.3 Plt Count 325 Neut % (Auto) 77.7 H Lymph % (Auto) 12.7 L Andrew % (Auto) 7.4 Eos % (Auto) 1.1 L Baso % (Auto) 1.1 Neut # (Auto) 9600 H Lymph # (Auto) 1600 Andrew # (Auto) 900 Eos # (Auto) 100 Baso # (Auto) 100 Sodium 138 Potassium 4.5 Chloride 103 Carbon Dioxide 28 BUN 10 Creatinine 0.70 Estimated GFR > 60 BUN/Creatinine Ratio 14.3 Glucose 101 H Calcium 8.4 Magnesium 2.2 Total Bilirubin 0.6 AST 92 H ALT 134 H Alkaline Phosphatase 117 Total Protein 6.4 Albumin 3.3 L Globulin 3.1 Albumin/Globulin Ratio 1.1 [facility] Medical History Acute respiratory failure with hypoxia Atrial fibrillation History of cardioversion Surgical History History of total right hip arthroplasty (03/09/24) Anesthesia History of cardiac radiofrequency ablation (~2021) History of hernia repair History of hand surgery Family History Father Liver failure Grandfather Hyperlipidemia Hypertension Grandmother Hyperlipidemia Hypertension Grandfather Hyperlipidemia Hypertension Grandmother Hyperlipidemia Hypertension Social History household members: spouse and children Smoking Status: Former smoker Smokeless tobacco user: snus (1 can q3 days) alcohol intake: current substance use type: does not use Assessment & Plan Assessment & Plan narrative: 1. Sepsis with acute respiratoy failure with hypoxia, CARIDAD secondary to Community-acquired pneumonia with L chest pleural effusion (or empyema) - imaging showing worsening L pleural effusion. Given presentation, previous CT noting consolidation and accumulation of likely purulent material discussed with surgeon whom placed chest tube on 11/18. There was over 1L removed initially from his chest, 20 cc documented overnight from the tubing. Fluid analysis shows exudative effusion with LDH of 1414. Pleural fluid Albumin was 2.2 and protein 3.3 (serum 5.9) meeting exudative criteria as well. - small pneumothorax stable on repeat CXR 11/18 after chest tube placement. Remains on suction. Patient self clamped the chest tube. Stable imaging after this. Returned to suction. - continue pain control and supplemental O2, goal O2 90-96% on therapy he waxes and wanes on and off oxygen currently. - continue ceftriaxone 2g q24,Currently sputum culture with group a strep from sputum culture, though pleural fluid negative. Stopped doxycycline 11/20. - WBC increasing slightly to 12.3. Will continue to trend. - CARIDAD has resolved since admit, cr stable at 0.7 for multiple days. - appreciate chest tube management with general surgery. Discussed with surgeon today continue chest tube to suction, CT chest repeated today 11/21 showing persistent pleural effusion. General surgeon recommending transfer for thoracic surgery with possible placement of 2nd chest tube or VATS/pleurodesis. 2. Atrial fibrillation on chronic anticoagulation, present on admission and active/stable. - holding home xarelto given chest tube and possible need for thoracic surgery. Restarted therapeutic lovenox, can be held prior to any interventions. Full resuscitation. Lives in [place], with . is proxy decision maker. Discussed with surgeon today as noted above which contributed to the above assessment and plan. Dispo: pending transfer. Time-Based Coding :: [TOTAL MINUTES] spent with patient and on the chart (including review of chart, obtaining history, exam, reviewing outside data, placing orders, documenting exam and treatment plan, and counseling patient) on [DATE]. Quality VTE Deep Vein Thrombosis/Pulmonary Embolism Present on Admission: No
[2024-11-21] MEDS: METOPROLOL TARTRATE 5 MG/5 ML INJ IV (13:21)
--- NOTE | 2024-11-21 17:50 | PM.DS.1 ---
History of Present Illness History of Present Illness Date Patient Seen: 11/21/24 Chief complaint: Chest Pain/AFIB/SOB Narrative: Per admitting provider: From night doctor: 53 y/o M, h/o HTN, PAF, s/p Ablation, cardioversions, follows with [facility], is on Chronic A/C with Xarelto, even though has no h/o DM, Stroke, CHF, and CHADSVASC Score less than 1, not on rate control med/s, presented to ED, with sudden onset of Nausea, and vomiting, non bloody , no coffee grounds. Had transient Ant Chest pain around 1:30 am early Friday morning. No radiation of CP to his arms/ shoulders, back or neck/ jaw. CP not associated with Exertion or SOB. No Light Headedness or Syncope. Denies cough, had noted chills, and CP then localized to Left lower quadrant of abd, at high intensity 10/10. He was evaluated in ED, and had elevated D dimer and mild elevated Pro BNP: 455 . CTAP : no acute pathology in abd/ Pelvis, there was a LLL Lung density noted c/w possible Pneumobia. Pt also was in A fib RVR, with Hypotension, SBP ranging between mid 80s to low 90s Was hypoxic on RA, requiring 10 L O2 via Oxymask to maintain O2 sats : 93% Troponin was negative x 2 : < 0.012 EKG : A fib VR 130, Lateral T wave inversion, no ST elevation A CTA Chest done : No PE , extensive Left sided PNA noted Had Elevated Procalcitinin and Elevated Lactate He had bl cx done, started on IVF and Ceftriaxone IV and Doxycycline. He was admitted to Hospitalist Medicine team, and was transferred to ICU for close monitoring , and put on HFNC at 50 % FiO2 , with ABG : ph 7.3/PCO2 40s, PO2 > 100 O2 titrated down to keep O2 sats at 94% S: He is still having pain with coughing and deep breathing. He is on high-flow with FiO2 0.45%. He was not tachypneic. He is mildly hypotensive, and did not receive IV fluids overnight. His repeat lactic is pending. Blood cultures were drawn. I discussed his situation in the general plan with his at the bedside. Discharge Providers Provider Date of admission: 11/14/24 22:44 Discharge Date: 11/21/24 Primary care physician: Isai Beach MD Discharge provider: Sunny Key DO Summary Hospital Course Discharge Diagnosis: See summary by problem list noted below. Hospital Course: 1. Sepsis with acute respiratoy failure with hypoxia, CARIDAD secondary to Group A Strep pneumonia with L chest pleural effusion (or empyema). POA, active. - patient was admitted on 11/15 with presumed CAP after CT chest showing dense LLL with small pleural effusion. He was started initially on ceftriaxone and doxycycline. WBC initially trended up and he had worsening pain and hypoxia over the first few days of admission. - Repeated CT imaging on 11/18, which showed worsening L pleural effusion. Given presentation, previous CT noting dense LLL consolidation and accumulation of likely purulent material discussed with surgeon whom placed chest tube on 11/18. There was over 1.4 L removed initially from his chest with slow output since of about 20-30 mL per day. Fluid analysis on 11/18 showed exudative effusion with LDH of 1414. Pleural fluid Albumin was 2.2 and protein 3.3 (serum 5.9) meeting exudative criteria as well. It was a cloudy yellow color. - small pneumothorax stable on repeat CXR 11/18 after chest tube placement. Chest tube remains on suction. Patient self clamped the chest tube on 11/20. Stable imaging after this. Returned to suction. Repeat CT on 11/21 showed small residual apical pneumothorax still. - continued as needed pain control and supplemental O2, goal O2 90-96% on therapy he waxes and wanes on and off oxygen currently. He is currently not requiring O2. - continued ceftriaxone 2g q24, Currently sputum culture with group a strep from sputum culture, though pleural fluid negative culture to day. Stopped doxycycline 11/20 (11/15 - 11/20). Ceftriaxone 11/15 - present. - WBC trend. Increased to 19 prior to chest tube. After chest tube improved to 10. Over the last two days slow increase to 11 yesterday and 12 today. - CARIDAD has resolved since admit with above management and IV fluids on admission. Peak Cr 1.35. Cr now stable at 0.7 for multiple days. - appreciate chest tube management with general surgery. Discussed with surgeon today continue chest tube to suction, CT chest repeated today 11/21 showing persistent pleural effusion. General surgeon recommending transfer for thoracic surgery with possible placement of 2nd chest tube or VATS/pleurodesis. - Discussed with [facility] CT surgery Dr. Kyle agrees with transfer and consultation there, accepted by hospitalist Dr. Bloom at [facility]. 2. Atrial fibrillation with hx of ablation on chronic anticoagulation, present on admission and active/stable. RVR presend on admission now resolved. - holding home xarelto since AM 11/18 given chest tube and possible need for thoracic surgery. Restarted therapeutic lovenox on 11/21 per general surgery recommendations, can be held prior to any interventions. - he was started on metoprolol here for RVR, presume due to pain and infection. Rate is generally between 100-110 on telemetry while here. - TTE with EF of 40-45% (see below) on 11/15 with flattened septum. He had no apparent volume overload on exam with no LE edema, no JVD. He was not diuresed and has resolution of hypoxia. Consider repeat echo at accepting facility for consideration of current volume status. 3. Transaminitis - - on day of transfer, sudden increase in AST/ALT to 92/134 respectively. Suspect related to ceftriaxone. Continue to monitor at accepting facility. Full resuscitation. Lives in [place], with . is proxy decision maker. Discussed with surgeon today as noted above which contributed to the above assessment and plan. Dispo: Transfer to [facility]. Time Spent with Patient Time spent: Greater than 30 minutes Exam Vital Signs (past 8 hours): - 11/21/24 12:00 11/21/24 16:00 Temperature 97.7 F 99.0 F Pulse Rate 100 H 101 H Respiratory Rate 25 H 26 H Blood Pressure 132/78 138/79 Pulse Oximetry 94 95 Oxygen Flow Rate 0 0 Fraction of Inspired Oxygen 21 SaO2/FiO2 Ratio 461 Oxygen Delivery Method Room Air Oxygen Flow Rate 0 Narrative Exam Narrative: Gen: NAD, awake and alert CV: RRR no m/r/g Pulm: Decreased breath sounds LLL, L chest tube with serosanguinous drainage in the tubing. Abd: S NT ND Ext: No edema Objective Imaging CT scan - chest: Radiologist's impression: PROCEDURE: CT CHEST without contrast6 INDICATIONS: Evaluate for left empyema. TECHNIQUE: Helical axial CT of the chest were obtained without contrast and reformatted in multiple planes. Patient was scanned both supine and prone. For radiation dose reduction, the following was used: automated exposure control, adjustment of mA and/or kV according to patient size. COMPARISON: [facility], CT, CT ANGIO CHEST PE PROTOCOL, 11/15/2024, 0:48. FINDINGS: Image quality: Diagnostic. Lower Neck: No enlarged lymph nodes. Thyroid: No thyroid nodules which require sonographic follow up, per consensus guidelines. Axillae: No enlarged lymph nodes. Chest Wall: Unremarkable. Bones: Unremarkable. Lungs and Pleura: Left-sided chest tube terminates in the upper 3rd posterior pleural space, but does not extend into the pneumothorax. Moderate left pleural effusion and left lower lobe atelectasis/consolidation. Apical pneumothorax with air-fluid level noted. Right upper lobe pulmonary infiltrate Heart: Heart size is normal. No pericardial effusion. Thoracic Vessels: The aorta and pulmonary arteries demonstrate normal size. Mediastinum and Lelia: No enlarged lymph nodes. Esophagus: No wall thickening. No hiatal hernia. Upper Abdomen: 1.5 cm adrenal nodule with peripheral calcification. IMPRESSION: Left-sided chest tube, pleural effusion and apical pneumothorax with air-fluid level. Chest tube is appropriately positioned, but stops short of thoracic apex Small multifocal right-sided pulmonary infiltrates. Right adrenal nodule, stable Echo: Radiologist's impression: Interpretation Summary The patient was in atrial fibrillation with heart rates between 96-115 bpm during the exam. The ejection fraction is estimated to be 40-45%. Septal motion is consistent with conduction abnormality. The interventricular septum is flattened, consistent with a right ventricular pressure/volume condition. The right ventricular systolic function is normal. The right ventricular systolic pressure is estimated to be at least 39 mmHg based on an estimated right atrial pressure of 15 mm Hg. The right atrium is moderately dilated. There is mild tricuspid regurgitation. There is a moderately large left-sided pleural effusion. Procedure: A two-dimensional transthoracic echocardiogram with color flow and Doppler was performed. The study quality was technically adequate. There is no prior echocardiogram noted for this patient. The patient was in atrial fibrillation with heart rates between 96-115 bpm during the exam. Left Ventricle: The left ventricle is normal in size and wall thickness. The ejection fraction is estimated to be 40-45%. Septal motion is consistent with conduction abnormality. The interventricular septum is flattened, consistent with a right ventricular pressure/volume condition. Diastolic function could not be accurately assessed due to atrial fibrillation. Right Ventricle: The right ventricle is mildly dilated. The right ventricular systolic function is normal. Atria: The left atrial size is normal. The right atrium is moderately dilated. There is no Doppler evidence for an interatrial shunt. Mitral Valve: The mitral valve leaflets appear borderline thickened, but open well. There is trace mitral regurgitation. Aortic Valve: The aortic valve is trileaflet. The aortic valve opens well. There is no aortic valve stenosis. No aortic regurgitation is present. Tricuspid Valve: The tricuspid valve leaflets are thin and pliable. There is mild tricuspid regurgitation. The right ventricular systolic pressure is estimated to be at least 39 mmHg based on an estimated right atrial pressure of 15 mm Hg. Pulmonic Valve: The pulmonic valve leaflets are thin and pliable; valve motion is normal. There is no pulmonic valvular regurgitation. Great Vessels: The aortic root is normal size. The ascending aorta could not be visualized. The IVC is dilated (diameter is greater than 2.1 cm) and it collapses less than 50% with a sniff. This suggests a high right atrial pressure of 15 mm Hg. Pericardium/ Pleura There is no pericardial effusion. There is a moderately large left-sided pleural effusion. MMode/2D Measurements & Calculations LVIDd: 4.1 cm LVOT diam: 2.0 cm LVIDs: 3.3 cm Ao root diam: 3.1 cm FS: 19.7 % IVSd: 0.98 cm LVPWd: 0.91 cm LV jean. diameter/BSA (cm/m^2): 2.1 LV sys. diameter/BSA (cm/m^2): 1.7 LA A2 area: 22.9 cm2 RA long axis: 5.2 cm LA A4 area: 16.9 cm2 RA area: 22.2 cm2 LA length (vol): 5.4 cm RA vol: 80.2 ml LA vol: 60.7 ml RA : 40.2 ml/m2 LA vol index: 30.4 ml/m2 IVC diam: 2.7 cm RVD1 (basal): 4.6 cm RVD2 (mid): 3.3 cm TAPSE: 2.0 cm Doppler Measurements & Calculations Ao V2 max: 116.5 cm/sec LVOT Max Sheldon: 97.8 cm/sec Ao V2 mean: 80.6 cm/sec LV V1 max P.8 mmHg Ao max P.3 mmHg LV V1 VTI: 12.4 cm Ao mean P.1 mmHg JA(I,D): 2.6 cm2 Ao V2 VTI: 15.2 cm JA(V,D): 2.7 cm2 sev ratio: 0.81 JA indexed to BSA (cm^2/m^2): 1.3 MV E max sheldon: 70.3 cm/sec TR max sheldon: 242.3 cm/sec MV A max sheldon: 0.48 cm/sec TR max P.5 mmHg MV E/A: 145.2 PA V2 max: 98.5 cm/sec Med Peak E' Sheldon: 19.4 cm/sec PA V2 mean: 61.0 cm/sec E/E' med: 3.6 PA mean P.8 mmHg Lat Peak E' Sheldon: 13.3 cm/sec PA pr(Accel): 45.6 mmHg E/E' lat: 5.3 E/e' average: 4.5 MV dec time: 0.15 sec Labs 11/21/24 12:10 11/21/24 12:10 Labs: Laboratory Results - last 24 hr 11/21/24 12:10 WBC 12.3 H RBC 4.25 L Hgb 13.3 L Hct 38.7 L MCV 91.2 MCH 31.3 MCHC 34.3 RDW 13.3 Plt Count 325 Neut % (Auto) 77.7 H Lymph % (Auto) 12.7 L [place] % (Auto) 7.4 Eos % (Auto) 1.1 L Baso % (Auto) 1.1 Neut # (Auto) 9600 H Lymph # (Auto) 1600 [place] # (Auto) 900 Eos # (Auto) 100 Baso # (Auto) 100 Sodium 138 Potassium 4.5 Chloride 103 Carbon Dioxide 28 BUN 10 Creatinine 0.70 Estimated GFR > 60 BUN/Creatinine Ratio 14.3 Glucose 101 H Calcium 8.4 Magnesium 2.2 Total Bilirubin 0.6 AST 92 H ALT 134 H Alkaline Phosphatase 117 Total Protein 6.4 Albumin 3.3 L Globulin 3.1 Albumin/Globulin Ratio 1.1 PFSH Medical History Acute respiratory failure with hypoxia Atrial fibrillation History of cardioversion Surgical History History of total right hip arthroplasty (03/09/24) Anesthesia History of cardiac radiofrequency ablation (~2021) History of hernia repair History of hand surgery Family History Father Liver failure Grandfather Hyperlipidemia Hypertension Grandmother Hyperlipidemia Hypertension Grandfather Hyperlipidemia Hypertension Grandmother Hyperlipidemia Hypertension Social History household members: spouse and children Smoking Status: Former smoker Smokeless tobacco user: snus (1 can q3 days) alcohol intake: current substance use type: does not use Discharge Plan Discharge Plan Patient Disposition: [facility] Under care of provider: Dr. Bloom Provider Discharge Comment: See discharge summary Discharge Health Status Multidrug resistant organism: No MDRO Precautions: [place] Diet/Activity/Treatments Diet: Diet as Tolerated and Regular Liquid consistency: Normal/Thin Food texture: Regular Activity: No restrictions Other treatments: Chest tube to suction Discharge Data Primary Care Provider: Isai Beach VTE Deep Vein Thrombosis/Pulmonary Embolism Present on Admission: No
[2024-11-21] MEDS: LORazepam 0.5 MG TABLET PO (19:46)
[2024-11-21] MEDS: OXYCODONE IR 5 MG TABLET PO (19:46)
== END 2024-11-21 20:24 | disposition short-term general hospital (02) | DRG 871 ==
LOC: ED 21:26 → AC 22:56 → ICU 11-15 02:41 → AC 11-15 11:12 → ICU 11-15 11:12
PROVIDERS: Emergency Medicine; Hospitalist; Internal Medicine; Admitting Provider Hospitalist; Emergency Provider Student in an Organized Health Care Education/Training Program; PCP Family Medicine; Referring Provider Student in an Organized Health Care Education/Training Program; Visit Provider Hospitalist
DX: A40.0 Sepsis due to streptococcus, group A (principal); J18.9 Pneumonia, unspecified organism; J96.01 Acute respiratory failure with hypoxia; J86.9 Pyothorax without fistula; E87.20 Acidosis, unspecified; N17.9 Acute kidney failure, unspecified; R65.20 Severe sepsis without septic shock; I48.91 Unspecified atrial fibrillation; R74.01 Elevation of levels of liver transaminase levels; Z79.01 Long term (current) use of anticoagulants; Z87.891 Personal history of nicotine dependence
CPT/HCPCS: 36415; 36600; 71045; 71250; 71260; 71275; 74177; 80048; 80053; 81015; 82040; 82150; 82550; 82805; 82945; 83605; 83615; 83690; 83735; 83880; 84145; 84157; 84443; 84484; 85007; 85025; 85027; 85379; 85610; 85730; 87040; 87070; 87075; 87077; 87205; 87633; 87797; 89051; 93005; 93306; 96365; 96375; 96376; 99285; J0696; J1171; J1650; J2060; J2270; J2405; J3010; Q9967

== ENCOUNTER → 2025-04-14 06:29 | Outpatient (CLI) | payer BC, SELFPAY ==
[2024-11-14 22:45] VITALS: BMI 25.2
--- NOTE | 2025-04-14 06:32 | DI.CT.S_ITS ---
PROCEDURE: CT CHEST W CON INDICATIONS: PLEURAL EFFUSION TECHNIQUE: After the administration of intravenous contrast, 5 mm thick sections acquired from the pulmonary apices to the posterior costophrenic angles. 1 mm axial lung, 5 mm thick coronal and sagittal reformats and 7 mm axial MIP were acquired. For radiation dose reduction, the following was used: automated exposure control, adjustment of mA and/or kV according to patient size. COMPARISON: [facility], CT, CT CHEST W CON, 11/18/2024, 7:57. [facility], CT, CT CHEST HIGH RESOLUTION, 11/21/2024, 9:43. FINDINGS: Image quality: Diagnostic. Lower Neck: No enlarged lymph nodes. Thyroid: No thyroid nodules which require sonographic follow up, per consensus guidelines. Axillae: No enlarged lymph nodes. Chest Wall: Unremarkable. Bones: Unremarkable. Lungs and Pleura: No pneumothorax or pleural effusions. No consolidation or suspicious nodules. In the area of prior dense pneumonia and large left pleural effusion present 11/21/24 no pneumonia remains. There is minimal lung and adjacent pleural scarring as sequela of the prior inflammatory process. Heart: Heart size is normal. No pericardial effusion. Thoracic Vessels: The aorta and pulmonary arteries demonstrate normal size. Mediastinum and Lelia: No enlarged lymph nodes. Esophagus: No wall thickening. No hiatal hernia. Upper Abdomen: Visualized upper abdomen solid organs and bowel loops appear unchanged with a peripherally calcified small right adrenal nodule requiring no follow-up. IMPRESSION: Resolution of dense left lung pneumonia and large left pleural effusion, minimal residual lung and pleural scarring remains. No suspicion for malignancy. Dictated by: Joe Payton M.D. on 04/14/2025 at 11:58 Approved by: Joe Payton M.D. on 04/14/2025 at 12:02
== END ==
PROVIDERS: PCP Family Medicine; Visit Provider Student in an Organized Health Care Education/Training Program
DX: J90 Pleural effusion, not elsewhere classified (principal)
CPT/HCPCS: 71260; Q9967

== ENCOUNTER → 2025-08-22 17:47 | Outpatient (CLI) | payer BC, SELFPAY ==
[2024-11-14 22:45] VITALS: BMI 25.2
--- NOTE | 2025-08-22 17:48 | DI.RAD.S_ITS ---
PROCEDURE: XR KNEE LT 3V INDICATIONS: pain/swelling @ kneecap after working on knees TECHNIQUE: 3 views of the knee were acquired. COMPARISON: None. FINDINGS: Bones: No fractures or dislocations. No suspicious bony lesions. Soft tissues: Mild joint effusion. No suspicious soft tissue calcifications. IMPRESSION: Mild effusion. No visualized acute fracture or dislocation. However, if clinical concern and/or pain persist, short interval imaging followup in 7-10 days is recommended, as occult injury cannot be definitively excluded. Dictated by: April Montenegro M.D. on 08/22/2025 at 18:30 Approved by: April Montenegro M.D. on 08/22/2025 at 18:31
== END ==
PROVIDERS: PCP Family Medicine; Referring Provider Physician Assistant; Visit Provider Physician Assistant
DX: M25.462 Effusion, left knee (principal)
CPT/HCPCS: 73562